=== PATIENT | female | born 1950 | race Caucasian/White ===

== ENCOUNTER 2023-06-19 09:54 | Outpatient (OUT) | payer OTHER, SELFPAY ==
--- NOTE | 2023-06-19 10:02 | US_ITS ---
The [address] [address] Patient Name: BAHMAN LOVE MRN: [id number] date: 1950 Sex: F Assigned Patient Location: US Current Patient Location: US Accession/Order Number: [id number] Exam Date: 06/19/2023 10:01 Report Date: 06/19/2023 12:21 At the request of: BROOKE GALARZA Procedure: US renal BI EXAM: US renal BI HISTORY: Left Adrenal Adenoma D35.00 COMPARISON: CT abdomen pelvis 02/11/2023. TECHNIQUE: Real-time ultrasound imaging of the kidneys and bladder. Findings: The right and left kidneys measure 11.4 and 10.2 cm. There is good corticomedullary differentiation bilaterally. No renal stones or collecting system dilatation. No focal mass or perinephric fluid collection. The bilateral adrenal glands are not visualized due to overlying bowel gas. The bladder is fluid-filled with a prevoid volume of 526th mL. It is unremarkable. Incidentally noted are multiple uterine calcifications. US/US renal BI IMPRESSION: 1. Unremarkable sonographic appearance of the kidneys. Electronically authenticated by: ANNETTE DURAN Date: 06/19/2023 12:21
== END 2023-06-19 09:55 | disposition home or self-care (01) ==
LOC: US 09:55
PROVIDERS: PCP Internal Medicine; Visit Provider Urology
DX: D35.00 Benign neoplasm of unspecified adrenal gland (principal)
CPT/HCPCS: 76775

== ENCOUNTER 2023-07-16 10:05 | Outpatient (OUT) | payer OTHER, SELFPAY ==
[2023-07-16 10:21] LABS: Basophils Percent Auto 0.4 % (0.2-2.0); Eosinophils Absolute Auto 0.1 10^3/uL (0.0-0.7); Eosinophils Percent Auto 1.7 % (0.9-7.0); Hematocrit 39.1 % (36.0-48.0); Hemoglobin 12.9 g/dL (12.0-16.0); Immature Granulocytes Abs Auto 0.02 10^3/uL (0.00-0.03); Immature Granulocytes Pct Auto 0.3 % (0.0-0.5); Lymphocytes Absolute Auto 1.9 10^3/uL (1.2-3.8); Mean Corpuscular Hemoglobin 30.4 pg (26.7-34.0); Mean Corpuscular Volume 92.2 fL (81.0-99.0); Monocytes Absolute Auto 0.6 10^3/uL (0.3-0.8); Monocytes Percent Auto 7.4 % (1.7-12.0); Neutrophils Percent Auto 65.2 % (43.0-75.0); Platelet Count 267 10^3/uL (150-450); Red Blood Count 4.24 10^6/uL (4.20-5.40); Red Cell Distribution Width 13.3 % (11.0-15.0); White Blood Count 7.7 10^3/uL (4.0-11.0)
[2023-07-16 11:23] LABS: Alanine Aminotransferase 32 U/L (14-59); Anion Gap 13.1; BUN Creatinine Ratio 28.4; Calcium 8.9 mg/dL (8.5-10.1); Carbon Dioxide 28.2 mmol/L (21.0-32.0); Chloride 103 mmol/L (98-107); Chol HDL Ratio 3.2; Cholesterol 212 mg/dL (<=200); Estimated GFR (African America >60 (>=60); Estimated GFR (Non-African Ame >60 (>=60); Glucose 108 mg/dL (74-106); HDL Cholesterol 66 mg/dL (40-60); Potassium 4.3 mmol/L (3.5-5.1); Sodium 140 mmol/L (136-145); Thyroid Stimulating Hormone 0.882 uIU/mL (0.358-3.740); Triglycerides 110 mg/dL (<=150)
== END 2023-07-16 10:06 | disposition home or self-care (01) ==
LOC: LAB 10:05
PROVIDERS: PCP Internal Medicine; Visit Provider Internal Medicine
DX: E78.00 Pure hypercholesterolemia, unspecified (principal); E06.3 Autoimmune thyroiditis; K21.00 Gastro-esophageal reflux disease with esophagitis, without bleeding; Z79.899 Other long term (current) drug therapy; R00.2 Palpitations; K58.9 Irritable bowel syndrome, unspecified
CPT/HCPCS: 36415; 80048; 80061; 84443; 84460; 85025

== ENCOUNTER 2023-07-16 10:26 | Outpatient (OUT) | payer OTHER, SELFPAY ==
--- NOTE | 2023-07-16 10:30 | MM_ITS ---
Patient: BAHMAN LOVE Exam Date: 07/16/2023 : 1950 Gender:F Ordering : DR CECILIA BROWN Admission #: [id number] Family : DR Ruddy Alvarado D.O. Order #: [id number] CLICK HERE TO VIEW EXAM RADIOLOGY REPORT PROCEDURE: MM TOMOSYNTHESIS SCREENING BI COMPARISON: MG MAMM SCREEN 3D KIP CAD, 07/01/2022. MG MAMM SCREEN 3D KIP CAD, 06/13/2021. INDICATIONS: Screening Calculator Name NCI Breast Cancer Risk Assessment Tool 5 Year Breast Cancer Risk 1.60% Lifetime Breast Cancer Risk 3.90% Personal Breast Cancer No Personal Ovarian Cancer No Treatments None Family Cancers Aunt-maternal with breast cancer at age 70; Brother with lymphoma cancer at age 56; Father with prostate cancer at age 80. LOCATION: The [facility] BREAST COMPOSITION: Scattered areas fibroglandular density. FINDINGS: DIAGNOSTIC CATEGORY 2--BENIGN FINDING. NO CHANGE FROM COMPARISON. Scattered benign-appearing nodules are present. Scattered benign-appearing calcifications are present. Scattered benign-appearing lymph nodes are present. RIGHT BREAST: No significant suspicious finding. LEFT BREAST: No significant suspicious finding. Focal asymmetry upper inner quadrant with calcifications, stable RECOMMENDATIONS: ROUTINE MAMMOGRAM AND CLINICAL EVALUATION IN 12 MONTHS. PLEASE NOTE: A NORMAL MAMMOGRAM DOES NOT EXCLUDE THE POSSIBILITY OF BREAST CANCER. A CLINICALLY SUSPICIOUS PALPABLE LUMP SHOULD BE BIOPSIED. Dictated by: Olivier Lobato MD on 07/17/2023 at 11:08 Approved by: Olivier Lobato MD on 07/17/2023 at 11:09
== END 2023-07-16 10:27 | disposition home or self-care (01) ==
LOC: MAMMO 10:26
PROVIDERS: PCP Internal Medicine; Visit Provider Obstetrics & Gynecology
DX: Z12.31 Encounter for screening mammogram for malignant neoplasm of breast (principal); E78.00 Pure hypercholesterolemia, unspecified; E06.3 Autoimmune thyroiditis; K21.00 Gastro-esophageal reflux disease with esophagitis, without bleeding; Z79.899 Other long term (current) drug therapy; R00.2 Palpitations; K58.9 Irritable bowel syndrome, unspecified; Z80.3 Family history of malignant neoplasm of breast; Z80.42 Family history of malignant neoplasm of prostate
CPT/HCPCS: 77063; 77067

== ENCOUNTER 2023-07-17 09:24 | Outpatient (OUT) | payer OTHER, SELFPAY ==
--- NOTE | 2023-07-17 09:35 | CT_ITS ---
[address] [address] Patient Name: BAHMAN LOVE MRN: [facility]:[id number] date: 1950 Sex: F Assigned Patient Location: CT Current Patient Location: CT Accession/Order Number: [id number] Exam Date: 07/17/2023 09:55 Report Date: 07/17/2023 10:48 At the request of: BROOKE GALARZA Procedure: CT abdomen pelvis wo/w con EXAM: CT abdomen pelvis wo/w con HISTORY: Adrenal Adenoma D35.00 COMPARISON: 02/11/2023 TECHNIQUE: Axial CT images were obtained of the abdomen and pelvis without and with intravenous contrast. Postcontrast images were obtained in the venous and delayed phase. Multiplanar reconstructions were performed. ABDOMEN/PELVIS FINDINGS: Lower Chest: Unremarkable. Liver: Normal enhancement and contour. Biliary/Gallbladder: Prior cholecystectomy. Pancreas: Unremarkable. Spleen: Unremarkable. Adrenal Glands: Stable appearance of the left adrenal gland with a noncontrast Hounsfield unit measurement of -8.4, consistent with a benign adrenal adenoma. Kidneys: Unremarkable. Gastrointestinal/Peritoneum: No acute abnormality. Mild colonic diverticulosis is present. The appendix is unremarkable. No free air or free fluid. Vascular: Moderate scattered atherosclerotic calcifications are present. Lymph Nodes: No enlarged lymph nodes by CT size criteria. Pelvic Organs: Calcifications in the uterus, likely due to chronic involuted fibroids. Bladder: Unremarkable. Bones: No acute osseous abnormality. There is a slight anterolisthesis of L4 on L5. Mild to moderate multilevel degenerative changes are present in the visualized spine. Soft tissues: Unremarkable. CT/CT abdomen pelvis wo/w con IMPRESSION: 1. No acute abnormality of the abdomen and pelvis. 2. Left adrenal nodule with imaging features consistent with a benign adrenal adenoma. 3. Prior cholecystectomy. 4. Mild colonic diverticulosis. Electronically authenticated by: AMISHA GONZALEZ Date: 07/17/2023 10:48
== END 2023-07-17 09:25 | disposition home or self-care (01) ==
LOC: CT 09:24
PROVIDERS: PCP Internal Medicine; Visit Provider Urology
DX: D35.00 Benign neoplasm of unspecified adrenal gland (principal); D35.02 Benign neoplasm of left adrenal gland; K57.90 Diverticulosis of intestine, part unspecified, without perforation or abscess without bleeding
CPT/HCPCS: 74178; Q9967

== ENCOUNTER 2023-10-20 11:01 | Emergency (ER) | payer OTHER, SELFPAY ==
[2023-10-20 11:06] VITALS: BP 123/72; PULSE 95; RESP 18; TEMP 36.9; O2SAT 97; BMI 28.3
--- NOTE | 2023-10-20 11:19 | ED_ITS ---
HPI - Nausea/Vomiting/Diarrhea General Chief complaint: Nausea/Vomiting/Diarrhea Stated complaint: flu like symptoms Time Seen by Provider: 10/20/23 11:18 Source: patient Mode of arrival: walk-in Limitations: no limitations History of Present Illness HPI Narrative: 73-year-old female presents for nausea vomiting and diarrhea. She's been feeling this way for the past three days. She was recently put on an antibiotic, Macrobid, for a urinary tract infection by her urologist office. She's had a fever home as well. No cough of significance. She had had Covid a few weeks ago but that has resolved. Related Data Home Medications Medication Instructions Recorded Confirmed aspirin 81 mg tablet,delayed 81 mg PO DAILY 10/20/23 10/20/23 release atenolol 25 mg tablet 12.5 mg PO DAILY 10/20/23 10/20/23 calcium 600 mg capsule 600 mg PO BID 10/20/23 10/20/23 dextroamphetamine-amphetamine 20 20 mg PO DAILY 10/20/23 10/20/23 mg tablet (Adderall) famotidine 40 mg tablet 40 mg PO DAILY 10/20/23 10/20/23 levothyroxine 125 mcg tablet 125 mcg PO DAILY 10/20/23 10/20/23 rosuvastatin 20 mg tablet 20 mg PO DAILY 10/20/23 10/20/23 zolpidem 5 mg tablet 2.5 mg PO DAILY 10/20/23 10/20/23 Previous Rx's Medication Instructions Recorded ondansetron 4 mg disintegrating 4 mg PO Q6H PRN nausea and 10/20/23 tablet vomiting #20 tabs Allergies Allergy/AdvReac Type Severity Reaction Status Date / Time No Known Drug Allergies Allergy Verified 10/20/23 11:06 Review of Systems ROS Narrative A ten point review of systems is negative except as noted above. Exam Narrative Exam Narrative: Nurses note and vital signs reviewed and patient is not hypoxic. General: The patient appears well and in no apparent distress. Patient is resting comfortably on cart. Skin: Warm, dry, no pallor noted. There is no rash noted. Head: Normocephalic, atraumatic Eye: Normal conjunctiva, no drainage Ears, Nose, Mouth, and Throat: oral mucosa is moist. Nares patent. Cardiovascular: Regular Rate and Rhythm Respiratory: Patient is in no distress, no accessory muscle use, lungs are clear to auscultation, no wheezing, rales or rhonchi Back: non-tender GI: soft and nontender Musculoskeletal: The patient has no evidence of calf tenderness, no pitting edema, symmetrical pulses noted bilaterally Neurological: A&O, normal speech Psychiatric: Cooperative Constitutional Vital Signs, click to edit/add: Last Vital Signs Temp 98.5 F 10/20/23 11:06 Pulse 95 H 10/20/23 11:06 Resp 18 10/20/23 11:06 BP 123/72 10/20/23 11:06 Pulse Ox 97 10/20/23 11:06 O2 Del Method Room Air 10/20/23 11:06 Course Vital Signs Vital signs: Vital Signs Temperature 98.5 F 10/20/23 11:06 Pulse Rate 95 H 10/20/23 11:06 Respiratory Rate 18 10/20/23 11:06 Blood Pressure 123/72 10/20/23 11:06 Pulse Oximetry 97 10/20/23 11:06 Oxygen Delivery Method Room Air 10/20/23 11:06 Temperature 98.5 F 10/20/23 11:06 Pulse Rate 95 H 10/20/23 11:06 Respiratory Rate 18 10/20/23 11:06 Blood Pressure 123/72 10/20/23 11:06 Pulse Oximetry 97 10/20/23 11:06 Oxygen Delivery Method Room Air 10/20/23 11:06 MDM - Nausea/Vomiting/Diarrhea MDM Narrative Medical decision making narrative: laboratory analysis is nonspecific. Clostridium difficile and stool cultures are pending. She's feeling improved and is able to be discharged home. Treatment diagnosis and follow-up were discussed with the patient. Differential Diagnosis Differential diagnosis: Likely food poisoning, gastroenteritis, clostridium difficile infection, drug-induced nausea and vomiting and dehydration Lab Data Attestation: I reviewed the patient's lab results. Labs: Lab Results 10/20/23 10/20/23 Range/Units 11:57 12:20 WBC 8.2 (4.0-11.0) 10^3/uL RBC 4.36 (4.20-5.40) 10^6/uL Hgb 13.1 (12.0-16.0) g/dL Hct 39.2 (36.0-48.0) % MCV 89.9 (81.0-99.0) fL MCH 30.0 (26.7-34.0) pg MCHC 33.4 (29.9-35.2) g/dL RDW 13.3 (11.0-15.0) % Plt Count 259 (150-450) 10^3/uL MPV 9.9 (9.5-13.5) fL Neut % (Auto) 90.5 H (43.0-75.0) % Lymph % (Auto) 3.8 L (20.5-60.0) % [place] % (Auto) 3.7 (1.7-12.0) % Eos % (Auto) 1.8 (0.9-7.0) % Baso % (Auto) 0.0 L (0.2-2.0) % Neut # (Auto) 7.4 H (1.4-6.5) 10^3/uL Lymph # (Auto) 0.3 L (1.2-3.8) 10^3/uL [place] # (Auto) 0.3 (0.3-0.8) 10^3/uL Eos # (Auto) 0.2 (0.0-0.7) 10^3/uL Baso # (Auto) 0.0 (0.0-0.1) 10^3/uL Abs Immat Gran (auto) 0.02 (0.00-0.03) 10^3/uL Imm/Tot Granulo (auto) 0.2 (0.0-0.5) % Sodium 134 L (136-145) mmol/L Potassium 3.2 L (3.5-5.1) mmol/L Chloride 97 L (98-107) mmol/L Carbon Dioxide 26.8 (21.0-32.0) mmol/L Anion Gap 13.4 BUN 11.0 (7.0-18.0) mg/dL Creatinine 0.72 (0.55-1.02) mg/dL Est GFR ( Amer) >60 (>=60) Est GFR (Non-Af Amer) >60 (>=60) BUN/Creatinine Ratio 15.3 Glucose 105 (74-106) mg/dL Calcium 9.0 (8.5-10.1) mg/dL Urine Color Yellow (YELLOW) Urine Clarity Clear (CLEAR) Urine pH 6.5 (5.0-9.0) Ur Specific [place] <=1.005 A (1.005-1.025) Urine Protein 30 A (NEG/TRACE) mg/dL Urine Glucose (UA) Negative (NEGATIVE) mg/dL Urine Ketones Negative (NEGATIVE) mg/dL Urine Occult Blood Small A (NEGATIVE) Urine Nitrite Negative (NEGATIVE) Urine Bilirubin Small A (NEGATIVE) Urine Urobilinogen 1.0 (0.2-1.0) EU/dL Ur Leukocyte Esterase Trace A (NEGATIVE) Urine RBC 0-2 (0-2) #/HPF Urine WBC 2-5 A (NONE SEEN) #/HPF Ur Squamous Epith Cells Few A (NONE/RARE) #/LPF Urine Crystals None seen (None Seen) #/HPF Urine Bacteria Moderate A (NONE SEEN) #/HPF Urine Casts None seen (NONE SEEN) #/LPF Urine Mucus None seen (NONE SEEN) Discharge Plan Discharge Chief Complaint: Nausea/Vomiting/Diarrhea Clinical Impression: Nausea, vomiting, and diarrhea Patient Disposition: Home, Self-Care Time of Disposition Decision: 13:12 Condition: Good Mode of Transportation: Private Vehicle Prescriptions / Home Meds: New ondansetron 4 mg tablet,disintegrating 4 mg PO Q6H PRN (Reason: nausea and vomiting) Qty: 20 0RF No Action levothyroxine 125 mcg tablet 125 mcg PO DAILY aspirin 81 mg tablet,delayed release (DR/EC) 81 mg PO DAILY famotidine 40 mg tablet 40 mg PO DAILY atenolol 25 mg tablet 12.5 mg PO DAILY rosuvastatin 20 mg tablet 20 mg PO DAILY zolpidem 5 mg tablet 2.5 mg PO DAILY dextroamphetamine-amphetamine [Adderall] 20 mg tablet 20 mg PO DAILY calcium 600 mg capsule 600 mg PO BID Instructions: Acute Nausea and Vomiting (ED) Stand Alone Forms: Portal Instructions Referrals: Ruddy Alvarado DO [Primary Care Provider] - 1 week
[2023-10-20 12:07] LABS: Eosinophils Absolute Auto 0.2 10^3/uL (0.0-0.7); Eosinophils Percent Auto 1.8 % (0.9-7.0); Hematocrit 39.2 % (36.0-48.0); Hemoglobin 13.1 g/dL (12.0-16.0); Immature Granulocytes Abs Auto 0.02 10^3/uL (0.00-0.03); Immature Granulocytes Pct Auto 0.2 % (0.0-0.5); Lymphocytes Absolute Auto 0.3 10^3/uL (1.2-3.8); Lymphocytes Percent Auto 3.8 % (20.5-60.0); Mean Corpuscular HGB Conc 33.4 g/dL (29.9-35.2); Mean Corpuscular Volume 89.9 fL (81.0-99.0); Mean Platelet Volume 9.9 fL (9.5-13.5); Monocytes Absolute Auto 0.3 10^3/uL (0.3-0.8); Monocytes Percent Auto 3.7 % (1.7-12.0); Neutrophils Absolute Auto 7.4 10^3/uL (1.4-6.5); Neutrophils Percent Auto 90.5 % (43.0-75.0); Platelet Count 259 10^3/uL (150-450); Red Blood Count 4.36 10^6/uL (4.20-5.40); Red Cell Distribution Width 13.3 % (11.0-15.0); White Blood Count 8.2 10^3/uL (4.0-11.0)
[2023-10-20] MEDS: 0.9 % SODIUM CHLORIDE 1,000 ML 1000 ML IV (12:12)
[2023-10-20] MEDS: ONDANSETRON PF 4 MG/2 ML VIAL IV (12:13)
[2023-10-20 12:23] LABS: Anion Gap 13.4; BUN Creatinine Ratio 15.3; Carbon Dioxide 26.8 mmol/L (21.0-32.0); Chloride 97 mmol/L (98-107); Estimated GFR (African America >60 (>=60); Estimated GFR (Non-African Ame >60 (>=60); Glucose 105 mg/dL (74-106); Potassium 3.2 mmol/L (3.5-5.1); Sodium 134 mmol/L (136-145)
[2023-10-20 12:33] LABS: Bilirubin Urine SMALL (NEGATIVE); Blood Urine SMALL (NEGATIVE); Clarity Urine CLEAR (CLEAR); Color Urine YELLOW (YELLOW); Glucose Urine UA NEGATIVE (NEGATIVE); Ketones Urine NEGATIVE (NEGATIVE); Leukocyte Esterase Urine TRACE (NEGATIVE); Nitrite Urine NEGATIVE (NEGATIVE); Protein Urine 30 mg/dL (NEG/TRACE); Specific Gravity Urine <=1.005 (1.005-1.025); pH Urine 6.5 (5.0-9.0)
[2023-10-20 12:45] LABS: Bacteria Urine MODERATE #/HPF (NONE SEEN); Cast Seen? NONE SEEN #/LPF (NONE SEEN); Crystals Seen? None Seen #/HPF (None Seen); Mucus Urine NONE SEEN (NONE SEEN); RBC Urine 0-2 #/HPF (0-2); Squamous Epithelial Cell Urine FEW #/LPF (NONE/RARE)
[2023-10-20 13:36] VITALS: BP 132/74; PULSE 86; RESP 20; O2SAT 94
[2023-10-20 16:12] LABS: C. Difficile PCR NEGATIVE (NEGATIVE)
== END 2023-10-20 13:38 | disposition home or self-care (01) ==
PROVIDERS: Emergency Provider Emergency Medicine; PCP Internal Medicine
DX: R11.2 Nausea with vomiting, unspecified (principal); R19.7 Diarrhea, unspecified; Z86.16 Personal history of COVID-19; Z79.82 Long term (current) use of aspirin; Z79.899 Other long term (current) drug therapy; Z79.890 Hormone replacement therapy
CPT/HCPCS: 36415; 80048; 81001; 85025; 87045; 87046; 87427; 87493; 96374; 99284; J2405

== ENCOUNTER 2024-08-20 08:49 | Outpatient (OUT) | payer OTHER, SELFPAY ==
--- NOTE | 2024-08-20 09:05 | MM_ITS ---
Patient Name: BAHMAN LOVE MR#: [id number] : 1950 Exam Date: 08/20/2024 Ordering Doctor: DR Ruddy Alvarado D.O. RADIOLOGY REPORT PROCEDURE: MM TOMOSYNTHESIS SCREENING BI COMPARISON: MM TOMOSYNTHESIS SCREENING BI, 07/16/2023. MG MAMM SCREEN 3D KIP CAD, 07/01/2022. MG MAMM SCREEN 3D KIP CAD, 06/13/2021. MG MAMM KIP SCRN W CAD DIG, 03/10/2014. INDICATIONS: Screening Calculator Name NCI Breast Cancer Risk Assessment Tool 5 Year Breast Cancer Risk 1.60% Lifetime Breast Cancer Risk 3.40% Personal Breast Cancer No Personal Ovarian Cancer No Treatments None Family Cancers Aunt-maternal with breast cancer at age 70; Brother with lymphoma cancer at age 56; Father with prostate cancer at age 80. LOCATION: [facility] BREAST COMPOSITION: There are scattered areas of fibroglandular density. FINDINGS: DIAGNOSTIC CATEGORY 2--BENIGN FINDING: RIGHT BREAST: No significant suspicious finding. No significant change has occurred. LEFT BREAST: No significant suspicious finding. Scattered benign-appearing calcifications are present. Scattered benign-appearing lymph nodes are present. No significant change has occurred. RECOMMENDATIONS: ROUTINE MAMMOGRAM AND CLINICAL EVALUATION IN 12 MONTHS. PLEASE NOTE: A NORMAL MAMMOGRAM DOES NOT EXCLUDE THE POSSIBILITY OF BREAST CANCER. A CLINICALLY SUSPICIOUS PALPABLE LUMP SHOULD BE BIOPSIED. Dictated by: Felix Perez M.D. on 08/20/2024 at 11:56 Approved by: Felix Perez M.D. on 08/20/2024 at 11:59
[2024-08-20 09:08] LABS: Basophils Percent Auto 0.5 % (0.2-2.0); Eosinophils Absolute Auto 0.2 10^3/uL (0.0-0.7); Eosinophils Percent Auto 2.5 % (0.9-7.0); Hematocrit 38.1 % (36.0-48.0); Hemoglobin 12.5 g/dL (12.0-16.0); Immature Granulocytes Abs Auto 0.02 10^3/uL (0.00-0.03); Immature Granulocytes Pct Auto 0.3 % (0.0-0.5); Lymphocytes Absolute Auto 1.8 10^3/uL (1.2-3.8); Lymphocytes Percent Auto 24.8 % (20.5-60.0); Mean Corpuscular HGB Conc 32.8 g/dL (29.9-35.2); Mean Corpuscular Hemoglobin 30.5 pg (26.7-34.0); Mean Corpuscular Volume 92.9 fL (81.0-99.0); Mean Platelet Volume 9.9 fL (9.5-13.5); Monocytes Absolute Auto 0.6 10^3/uL (0.3-0.8); Monocytes Percent Auto 8.6 % (1.7-12.0); Neutrophils Absolute Auto 4.7 10^3/uL (1.4-6.5); Neutrophils Percent Auto 63.3 % (43.0-75.0); Platelet Count 265 10^3/uL (150-450); Red Cell Distribution Width 14.4 % (11.0-15.0); White Blood Count 7.3 10^3/uL (4.0-11.0)
[2024-08-20 09:47] LABS: Alanine Aminotransferase 34 U/L (14-59); Albumin Level 3.3 g/dL (3.4-5.0); Alkaline Phosphatase 77 U/L (46-116); Anion Gap 12.5; Aspartate Amino Transferase 24 U/L (15-37); BUN Creatinine Ratio 16.1; Bilirubin Total 0.5 mg/dL (0.2-1.0); Calcium 9.1 mg/dL (8.5-10.1); Carbon Dioxide 30.1 mmol/L (21.0-32.0); Chloride 104 mmol/L (98-107); Chol HDL Ratio 2.4; Cholesterol 170 mg/dL (<=200); Estimated GFR (African America >60 (>=60 mL/min/1.73m^2); Estimated GFR (Non-African Ame 59 (>=60 mL/min/1.73m^2); Globulin 3.3 g/dL; Glucose 114 mg/dL (74-106); HDL Cholesterol 72 mg/dL (40-60); Potassium 4.6 mmol/L (3.5-5.1); Sodium 142 mmol/L (136-145); Thyroid Stimulating Hormone 1.967 uIU/mL (0.358-3.740); Total Protein 6.6 g/dL (6.4-8.2); Triglycerides 74 mg/dL (<=150); VLDL CHOLESTEROL 14.8 mg/dL
== END 2024-08-20 08:50 | disposition home or self-care (01) ==
PROVIDERS: PCP Internal Medicine; Visit Provider Internal Medicine
DX: Z12.31 Encounter for screening mammogram for malignant neoplasm of breast (principal); Z80.3 Family history of malignant neoplasm of breast; Z80.7 Family history of other malignant neoplasms of lymphoid, hematopoietic and related tissues; Z80.42 Family history of malignant neoplasm of prostate
CPT/HCPCS: 36415; 77063; 77067; 80053; 80061; 84443; 85025

== ENCOUNTER 2024-09-07 10:04 | Outpatient (OUT) | payer OTHER, SELFPAY ==
[2024-09-07 10:18] LABS: Basophils Percent Auto 0.4 % (0.2-2.0); Eosinophils Absolute Auto 0.2 10^3/uL (0.0-0.7); Eosinophils Percent Auto 2.1 % (0.9-7.0); Hematocrit 38.3 % (36.0-48.0); Hemoglobin 12.5 g/dL (12.0-16.0); Immature Granulocytes Abs Auto 0.02 10^3/uL (0.00-0.03); Immature Granulocytes Pct Auto 0.3 % (0.0-0.5); Lymphocytes Absolute Auto 1.8 10^3/uL (1.2-3.8); Mean Corpuscular HGB Conc 32.6 g/dL (29.9-35.2); Mean Corpuscular Hemoglobin 30.6 pg (26.7-34.0); Mean Corpuscular Volume 93.9 fL (81.0-99.0); Mean Platelet Volume 9.4 fL (9.5-13.5); Monocytes Absolute Auto 0.9 10^3/uL (0.3-0.8); Neutrophils Absolute Auto 4.3 10^3/uL (1.4-6.5); Neutrophils Percent Auto 60.2 % (43.0-75.0); Platelet Count 254 10^3/uL (150-450); Red Blood Count 4.08 10^6/uL (4.20-5.40); Red Cell Distribution Width 14.2 % (11.0-15.0); White Blood Count 7.2 10^3/uL (4.0-11.0)
[2024-09-07 10:28] LABS: C Reactive Protein 1.26 mg/dL (<=0.50)
[2024-09-07 10:58] LABS: Erythrocyte Sedimentation Rate 53 mm/hr (<=30)
== END 2024-09-07 10:05 | disposition home or self-care (01) ==
LOC: LAB 10:06
PROVIDERS: PCP Internal Medicine; Visit Provider Internal Medicine
DX: K52.9 Noninfective gastroenteritis and colitis, unspecified (principal)
CPT/HCPCS: 36415; 85025; 85652; 86140

== ENCOUNTER 2024-10-13 12:54 | Outpatient (OUT) | payer OTHER, SELFPAY ==
[2024-10-13 13:37] LABS: Alanine Aminotransferase 39 U/L (14-59); Albumin Globulin Ratio 1.2; Albumin Level 3.7 g/dL (3.4-5.0); Alkaline Phosphatase 61 U/L (46-116); Amylase 45 U/L (25-115); Anion Gap 9.3; Aspartate Amino Transferase 25 U/L (15-37); BUN Creatinine Ratio 14.5; Bilirubin Total 0.6 mg/dL (0.2-1.0); Calcium 9.3 mg/dL (8.5-10.1); Carbon Dioxide 31.7 mmol/L (21.0-32.0); Chloride 103 mmol/L (98-107); Estimated GFR (African America >60 (>=60 mL/min/1.73m^2); Estimated GFR (Non-African Ame >60 (>=60 mL/min/1.73m^2); Globulin 3.2 g/dL; Glucose 109 mg/dL (74-106); Sodium 140 mmol/L (136-145); Total Protein 6.9 g/dL (6.4-8.2)
== END 2024-10-13 12:55 | disposition home or self-care (01) ==
LOC: LAB 12:56
PROVIDERS: PCP Internal Medicine; Visit Provider Internal Medicine
DX: L29.9 Pruritus, unspecified (principal); I10 Essential (primary) hypertension; R10.13 Epigastric pain
CPT/HCPCS: 36415; 80053; 82150; 83690

== ENCOUNTER 2025-08-23 15:52 | Outpatient (OUT) | payer OTHER, SELFPAY ==
--- OUTSIDE RECORDS SUMMARY | 2025-08-10 07:04 | XMS_ITS | Continuity of Care Document ---
Author Organization [facility] Address [address] [place] [address] Phone Care Team Providers Care Hand Paint Mixer Name Role Phone Ruddy Alvarado DO Primary Care Provider Bekah Cho NP-C Attending Provider [phone] Care Teams Patient Care Team Team Status: Active Member Role/Relationship Status Dates Ruddy Alvarado DO Primary Care Provider Active Patient Care Team Team Status: Inactive Member Role/Relationship Status Dates Ruddy Alvarado DO Primary Care Provider Active Start: August 10, 2025 End: August 10ndra Tammie NP-CAttending ProviderActiveStart: August 10, 2025 End: August 10, 2025 Chief Complaint and Reason for Visit Chief Complaint Admit Date aaron/insomnia/narcolepsy August 10, 2 025 11:01am Allergies, Adverse Reactions, Alerts Allergen Type Severity Reaction Last Updated Verified Status Comments atorvastatin Allergy Unknown Pancreatitis January 03, 2025 8:59am Yes Active pt unsure if this is an allergy, she had pancreatitis twice while taking this ezetimibe Allergy Unknown Pancreatitis January 03, 2025 8:59am Yes Active pt unsure if this is an allergy, she had pancreatitis twice while taking this NSAIDS (Non-Steroidal Anti-Inflamma Allergy Unknown Pancreatitis January 03, 2025 8:59am Yes Active simvastatinAllergyUnknownPancreatitisApril 2024 8:59amYesActivept unsure if this is an allergy, she had pancreatitis twice while taking this Social History Smoking Status Status Start Date End Date Date of Observa tion Smokes tobacco daily (finding) February 26, 2024 7:14am Observation Status Observation Response Date of Response Legal Sex Female (finding) [facility] 1949 Family History Relationship Condition Age at Onset Recorded Date/T trinity father Heart disease Unknown motherDiabetes mellitusUnknownHeart diseaseUnknownbrotherNon-Hodgkin's lymphoma UnknownbrotherDeceasedUnknownMalignant neoplasmUnknownfatherDeceasedUnknown motherDeceasedUnknown Problems Active Problems Problem Diagnosis/Recorded Date Onset Date Status C ments Medicare annual wellness vis it, subsequent July 03, 2024 1:06pm Unknown Active Primary insomniaOctober 2023 1:07pmUnknownActiveOSA (obstructive sleep apnea)July 17, 2020 7:46amUnknownActiveCPAPGAD (generalized anxiety disorder)July 03, 2024 1:07pmUnknownActiveScreening mammogram for breast cancerOctober 2023 1:10pmUnknownActivePalpitationOctober 2023 1:08pm UnknownActiveColitisDecember 2019 2:37pmUnknownActiveHypercholesterolemia July 03, 2024 1:08pmUnknownActiveHypothyroidOctober 2023 1:09pmUnknown ActiveEnteritisOctober 2023 9:16amUnknownActiveNarcolepsy without cataplexyOctober 2019 7:45amUnknownActivePruritusJanuary 2024 10:07amUnknownActiveLow back pain radiating to right lower extremityApr2024 9:48amUnknownActiveEpigastric abdominal painJanuary 2024 10:08am UnknownActiveScreening for colorectal cancerOctober 2019 8:54amUnknown ActiveAcute bronchitis due to other specified organismsOctober 2023 9:15am UnknownActiveGERD (gastroesophageal reflux disease)July 03, 2024 1:08pm UnknownActiveHypertensionOctober 2023 9:14amUnknownActiveIBS (irritable bowel syndrome)February 12, 2022 6:41amUnknownActive Medications Medication Status Dose Units Route Directions Qty Days Refills S tart Date Stop Date End Date Reason(s) Instructions Adherence Atenolol 25 mg tablet Discontinued 12.5 MG PO Daily at bedtime 45 90 3 March 08, 2024 2:24pm February 22, 2025 8:29amTachyarrhythmia Tachycardia, unspecified palpitationsFamotidine 40 mg cqrhwbEtwmnwyqanex99GLNTVvlztPzuadaiej 2023 11:00pmSeptember 2023 12:04pmFamotidine 40 mg tabletDiscontinued0.ROUTE .RRXNONB471Purcdkwwa 2023 12:04pmAugust 2024 6:46amTAKE 1 TABLET BY MOUTH EVERYDAY AT BEDTIMEEscitalopram Oxalate 10 mg tabletDiscontinued0.ROUTE .SPQKBMZ760Pvkfnfewc 4th, 2024 10:17amApril 2024 5:45amTAKE 1 TABLET BY MOUTH EVERYDAY AT BEDTIMEZolpidem 5 mg rgshayYasnrhxymsfq6RKGQOjvpx at twxaznd92 305September 2023 1:21pmMay 2024 3:14pmInsomnia Psychophysiologic insomniaLevothyroxine 125 mcg tabletDiscontinued0.ROUTE .BOYVPDV620Szxwysm 2023 7:39amNovember 2024 7:49amTAKE 1 TABLET BY MOUTH ONCE EVERY DAY ON AN EMPTY STOMACHRosuvastatin 20 mg tabletDiscontinued0 .ROUTE.ASOGTWE791Gszlgsir 2023 7:03amNovember 2024 7:49amTAKE 1 TABLET BY MOUTH EVERY DAY IN THE EVENINGDextroamphetamine-Amphetamine (Adderall) 20 mg gsjxqeEazgzuxwystk22JRAQLdrww chkjk22227Kiuvnrjy 11th, 2024Ma2024 10:34amNarcolepsy without cataplexy Narcolepsy without cataplexy narcolepsyMetronidazole 500 mg mhswtlXhpcbrzjvhzx546UHLTSydcz 8 ujxeo64933 September 23, 2024 11:27amJanuary 2024 9:19amOmeprazole 40 mg capsule,delayed release(DR/EC)Discontinued0.ROUTE.OMUPDRS932Rusqrjnx 2024 10:31pmApril 2024 9:05amTAKE 1 CAPSULE BY MOUTH EVERY DAY ON AN EMPTY STOMACH, 30 MINUTES PRIOR TO BKFSTEscitalopram Oxalate 10 mg tabletDiscontinued0 .ROUTE.AVZGEJZ799Jnkwd 2024 5:45amNovember 2024 11:25amTAKE 1 TABLET BY MOUTH EVERYDAY AT BEDTIMEZolpidem 5 mg xxwaonNqrdqb3SIKIJpsoa at bedtime as needed for shmdbkzn92951Ezr 22nd, 2025 3:14pmInsomnia Psychophysiologic insomniaComplies with drug therapyAtenolol 25 mg tabletActive0 .ROUTE.LKWAJUD318Iol 2024 8:29amTachyarrhythmia Tachycardia, unspecifiedTAKE 1/2 TABLET BY MOUTH DAILY AT BEDTIME FOR PALPITATIONSComplies with drug therapyDextroamphetamine-Amphetamine (Adderall) 20 mg wnonxiGomkwp98UBUJIszjg jrwjy39770Eyu 2024Narcolepsy without cataplexy Narcolepsy without cataplexy narcolepsyComplies with drug therapyFamotidine 40 mg tabletDiscontinued0.ROUTE .ZKIILOO068Bsgbct 2024 6:46amNovember 2024 11:25amTAKE 1 TABLET BY MOUTH EVERYDAY AT BEDTIMELevothyroxine 125 mcg xexbfyAbnacp954OQQSHGxjqo81234 August 09, 2025 7:49amTake on an empty stomachComplies with drug therapy Rosuvastatin 20 mg tabletActive0.ROUTE.XYFPMEQ998Raklvsgn 11th, 2025 7:49amTAKE 1 TABLET BY MOUTH EVERY DAY IN THE EVENINGComplies with drug therapy Levothyroxine 137 mcg zlohllFdiuwnocwujd958OIJOWSyrhsWpbjnmr 2019 11:00pm September 04, 2020 2:22pmFamotidine 40 mg nsriznXcqldxpsnqvb84SAATXuhpjAxujoqe 18th, 2020 11:00pmDeceer 2019 2:21pmClonazepam 0.5 mg TabletDiscontinued 0.25MGPODaily as needed for AnxietyOct2019 11:00pmFebruary 26, 2024 6:15amAtenolol 25 mg VkcwxvSczmxeozqlii26.5MGPODaily at bedtimeJuly 16, 2020 11:00pmJune 2023 2:25pmpalpitationsAspirin 81 mg Tablet,Delayed Release (Dr/Ec)Agvtyq70PKMVHjhetZrjwwxm 18th, 2020 11:00pmComplies with drug therapyCalcium Carbonate (Calcium 600) 600 mg calcium (1,500 mg) Tablet Hbbsevydatzk719LDAYLqwpt dailyJuly 16, 2020 11:00pmDece2019 2:25pmPantoprazole 40 mg tablet,delayed release (DR/EC)Ylpjdfdaengi22PFBSTvgcx July 16, 2020 11:00pmAk2020 1:21pmesophagitis, GERD Dextroamphetamine-Amphetamine (Adderall) 20 mg WeuwitToluiumfhlfh87SNRPWoouz July 16, 2020 11:00pmJun 2023 10:37amnarcolepsyPseudoephedrine Hcl (Sudafed) 30 mg AyzlppCwyygyptmdih80VPQGFKDUN 4-6 HOURS as needed for Allergy SymptomsJuly 16, 2020 11:00pmJune 2023 10:34amPravastatin 20 mg tablet Atlhcjnouqvl50WXQUPeqptLadqjps 18th, 2020 11:00pm[facility]2019 2:23pm Zolpidem 5 mg tabletDiscontinued2.5MGPODaily at bedtime as needed for Insomnia July 16, 2020 11:00pmSeptember 2023 1:22pmPyridoxine (Vitamin B6) (Vitamin B-6) 100 mg BuefqtZbdtnu266ERWMIejdhKqywbyy 18th, 2020 11:00pm supplementComplies with drug therapyAcetaminophen (Tylenol) 325 mg Capsule Pusmrdicutfo956HYTPMjkyv times daily as needed for PainJuly 16, 2020 11:00pm[facility] 2024 11:24amCholecalciferol (Vitamin D3) (Vitamin D3) 25 mcg (1,000 unit) CyfmgnClnqvzlqutgr67BUJCUJvxsiDnveqwr 18th, 2020 11:00pmMay 2020 1:22pmsupplementOmega 5-Qwr-Emu-Fish Oil (Fish Oil) 1,200 (144-216) mg DvazlxzGyamvmphsoup2SQJIMYjlvwVzcvpwn 2019 11:00pmMay 2023 6:14am supplementPravastatin 40 mg ayjdlnTaucstjgpaam69SGQODpyct at bedtimeB[facility]2019 12:00amMay 2021 5:45amhyperlipidemiaLevothyroxine 125 mcg tablet Yrsedwurylhp426QQFHWVuiwrIhlrmbml 7th, 2020 12:00amOctober 2023 7:39am hypothyroidismCalcium Carbonate-Vitamin D3 (Calcium 600 + D(3)) 600 mg(1,500mg) -400 unit AbrecgQakkcs5SLEXNGweyr dailyDeveter[facility]2019 12:00amsupplement Complies with drug therapyMetronidazole (Flagyl) 500 mg MuhxbcKwpouquqlslo902OG POTwice dailyBrotman Medical Center2019 12:00amMay 2020 1:21pmFamotidine 40 mg olegiqYpgmuwiqnswv42ECYMGrepw dailyAky 2020 11:00pmJanuary 2024 9:37amLactobacillus Combination No.4 (Probiotic) 3 billion cell Capsule Pyuuhiktxigk2589QVA CELLSPODay 2020 11:00pmMay 2021 5:54am Escitalopram Oxalate 10 mg tcmircCfbtzgtgiqbb55PWNXJefmuVac 2021 11:00pm June 02, 2024 10:17amRosuvastatin 20 mg lgvwxcVzjoqzuzguhy67SJPCVmhmjrdObv 2021 11:00pmNovember 2023 7:03amOmeprazole 40 mg capsule,delayed release(DR/EC)Kjtvcmjhtgws54BOHRGpstv22696Oqkfray 2024 12:00amFebruary 2024 10:31pmTake on an empty stomach, 30 minutes prior to bkfstAscorbic Acid (Vitamin C) 1,000 mg qjtwjxGouapj4385JEZTRbhbhHkslrqgr 12th, 2025 12:00am Complies with drug therapyCholecalciferol (Vitamin D3) 125 mcg (5,000 unit) acvxlxgLmkxzu320FSUVWZvkbgOmfyhcjg 2024 12:00amComplies with drug therapy estradiolActiveVAGINALNovember 2024 12:00amComplies with drug therapy loratadine (Claritin)ActivePOas neededNov2024 12:00amComplies with drug therapymirabegronActivePONovember 2024 12:00amComplies with drug therapyphenylephrine HCl (Sudafed PE)ActivePOas neededNov2024 12:00amComplies with drug therapyDextroamphetamine-Amphetamine (Adderall) 20 mg dpfrqtKvxcniozyvad88EQVRDuzic npzin15051Aleu ecember 2023 12:59pmNarcolepsy without cataplexy Narcolepsy without cataplexy narcolepsyLevofloxacin 500 mg qtyzleTfbswxtewwns706YKTTTomzj121Pgustpa 2023 11:00pmDecember 2023 9:26pmMetronidazole 500 mg yzlbgoBfxuzdbsmiwn326 MGPOEvery 8 bgenj86856Xppumbxe 10th, 2024 12:00amDecember 2023 11:27am Hydrocodone-Acetaminophen 5-325 mg apbseqWvdlzdoxwbqo8QPSNXPabsr 6 hours as needed for wxzu4690Mavqa 2024 11:25amLow back pain Low back pain, unspecified Immunizations Immunization Event Date Not Given Reason Dose Number Order Manager Lot Number Reason(s) Given Vaccine Information Statement (VIS) Detail Administration Location COVID-19 mRNA Comirsurinder (Application Craft) December 22 COVID-19 mRNA Comirsurinder (Application Craft)January 12Tap, unspecifiedSeptember 2010influenza, unspecified formulationOctober 2014influenza, unspecified formulationOctober 2016influenza, unspecified formulation July 01, 2018influenza, unspecified formulationNovember 2018influenza, unspecified formulationSeptember 2019influenza, unspecified formulation June 26, 2021influenza, unspecified formulationOctober 2021 Pneumococcal Conjugate Vaccine, 13 valentNovember 2014Pneumococcal Polysacc. Vaccine, 23 valentNovember 2015Tetanus, Diphtheria adult, 5 Lf pres free absOctober 2014 Vital Signs Vital Reading Result Reference Range Collection Date/Time Height 65 [in_i] August 10, 2025 11:95dpAqzruu82.01 kgAugust 10, 2025 11:22amHeart Rate74 /usq55-882WafkamcoAugust 10, 2025 11:22amOxygen saturation by Pulse wanhlwce39 % 95-100August 10, 2025 11:22amBP Alqmggbv765 mm[Hg]100-140August 10, 2025 11:22amBP Hucwrvcvz93 mm[Hg]60-100August 10, 2025 11:22amBMI (Body Mass Index)28.6 kg/e7EhzxcoxtAugust 10, 2025 11:22am Advance Directives Advance Directive Response Recorded Date/ Time Advance Directives No May 4:13pm Insurance Providers Guarantor Merissa José I Address [address] [place] [address]Egikbih Info.Home Phone: Payer Group Member ID Coverage Type Subscriber Relationship to Subscriber Effective Date Expiration Date [facility] [id number] Ruffing Destinee Id: [id number] [address] [place] [address] Home Phone: Email: declined 19elf Encounters Encounter Location(s) Arrival/Admit Date Discharge/Departure Date Discharge/Departure Disposition Provider(s) Departed Physician/ Provider Office Visit -[facility] August 10, 2025 11:01am August 10, 2025 12:03pm Discharged to home care or self care (routine discharge) Bekah Cho APRN
--- OUTSIDE RECORDS SUMMARY | 2025-08-23 15:54 | XMS_ITS | Clinical Summary ---
Author Organization [facility] Address [address] [place] [address] Care Team Providers Care Networks Computer Consultant Name Role Phone Ruddy Alvarado DO Primary Care Provider [phone] Allergies Active AllergyReactionsCriticalityNoted GtoxRhmtiwseKuwiwsqaewklUxgxb38/15/2023 Uwcfhfwsy91/27/2021 Other Reaction(s): Pancreatitis DyzszzxglegawyZpderrh05/12/8027AaggdeFbqizun61/14/3497EptyvQwyhg93/15/2023 Medications MedicationSigDispense QuantityRefillsLast FilledStart DateEnd DateStatus levothyroxine (Synthroid, Levoxyl) 125 MCG tablet TAKE 1 TABLET BY MOUTH ONCE EVERY DAY ON AN EMPTY MCXBPPY7701/06/2023ctive pyridoxine (B6 Natural) 100 MG tablet 1 (one) time each day at the same time.Active atenolol (Tenormin) 25 MG tablet 1 (one) time each day at the same time.Active aspirin 81 MG EC tablet Take 81 mg by mouth in the morning.Active famotidine (Pepcid) 40 MG tablet Take by mouth.Active rosuvastatin (Crestor) 20 MG tablet Take 20 mg by mouth in the evening.06/02/2023ctive CALCIUM PO Active Cholecalciferol (Vitamin D3) 1000 units capsule 1 capsule 1 (one) time each day at the same time.Active Ascorbic Acid (VITAMIN C PO) Active pseudoephedrine (Sudafed) 30 MG tablet Take 30 mg by mouth every 4 (four) hours if needed for congestion.Active amphetamine-dextroamphetamine (Adderall) 20 MG tablet TAKE 1/2-1 TABLET BY MOUTH ONCE A DAY07/14/2023ctive escitalopram (Lexapro) 10 MG tablet Take 10 mg by mouth at txqipcz6608/29/2023ctive estradiol (Estrace) 0.1 MG/GM vaginal cream Insert 1 g into the qlunnp5609/25/2022ctive zolpidem (Ambien) 5 MG tablet TAKE 1 TABLET BY MOUTH DAILY AT BEDTIME FOR 30 DAYS.11/09/2023ctive tretinoin (Retin-A) 0.025 % cream Indications:LentiginesApply topically at bedtime Apply thin layer to face at bedtime 45 g 110///ctive mirabegron ER (Myrbetriq) 50 MG 24 hr tablet Take 50 mg by mouth at bedtime Do not crush, chew, or split.Active Active Problems ProblemNoted DateDiagnosed TbhrBzkfczk17/17/8736Gjumodtjs88/17/2024Neuralgia and fxectixc63/12/2023cquired hammer toe deformity of lesser toe of left foot 06/10/2023cquired hammer toe deformity of lesser toe of right foot06/10/2023 Adrenal vdhjfwq0506/10/2023hronic ybibcwvs70/12/2023urrent hdzray6206/10/2023 Overview (06/10/2023): Added secondary to documentation in Social History. Friable tmsihk6406/10/2023astroesophageal reflux mcqjkjg5706/10/2023Hallux rigidus of left foot06/10/2023History of urinary tract emugsnxxz25/12/2023 Gxfuosbmyoipuecrnczm73/12/1222Aoobzlqwncbntw97/12/2023Irritable bowel syndrome 06/10/2023Narcolepsy without vfsrvjont42/12/2023Neuroma of second interspace of left foot06/10/2023ancreatitis ([facility])06/10/2023aresthesia of skin06/10/2023 Positive reaction to tuberculin skin test06/10/2023ostmenopausal atrophic /12/2023Spondylosis of lumbar spine06/10/2023Urge incontinence of urine06/10/2023Uterine pkkzfksda19/12/2023osterior tibialis tendinitis of both lower uilouckvyja69/14/2023cquired pes planovalgus of left foot03/12/2023 Acquired pes planovalgus of right foot03/12/2023 Resolved Problems ProblemNoted DateDiagnosed DateResolved DateIncomplete bladder emptying /Screening for colorectal kfnkua87/ Microscopic dpocneutn05Menorrhagiaain in female genitalia on rjcjtwytdue79Postmenopausal bleeding Postinfective urethral stricture in nhbkek3706/10/2023 03/16/2025Pain in both feet Immunizations ImmunizationAdministration DatesNext BoiZTZ88/01/2021DTaP, Hnjtzcqblbj17/13/2011 Influenza, High Dose Seasonal, Preservative Free07/01/2018,07/30/2016Influenza, Seasonal, Quadrivalent, Qjazxcubxb04/21/2023Influenza, Xsvggkspswq06/21/2023, 07/01/2022,06/26/2021,06/23/2020,05/30/2020,08/03/2019,07/01/2018,08/04/2017, 07/16/2017,07/30/2016,07/29/2015,07/04/2015Influenza, injectable, quadrivalent 08/04/2017Influenza, injectable, quadrivalent, preservative free06/05/2022, 05/30/2020,07/29/2015Influenza, seasonal, injectable, preservative free 06/29/2018Pneumococcal Conjugate PCV 13110/14/2014Pneumococcal Polysaccharide DXHG064510/13/2015,09/28/2015Td (adult), 5 Lf tetanus toxoid, preservative free, ngjvmoyg34/06/2015Td (adult), qzhbodwjknb83/05/1999 Family History Medical HistoryRelationNameCommentsLymphomaBrotherLung cancerCousinArthritis FatherCOPDFatherCancerFatherCoronary artery diseaseFatherDiabetesFatherHeart diseaseFatherHypertensionFatherRaynaud syndromeFatherArthritisMotherCOPDMother DiabetesMotherHeart diseaseMotherHypertensionMotherMultiple sclerosisNephew RelationNameStatusCommentsBrotherCousinAliveFatherDeceasedMotherDeceasedNephew Alive Social History Tobacco UseTypesPacks/DayYears UsedDateSmoking Tobacco: Every DayCigarettes Started: 04/29/1991Smokeless Tobacco: Never Tobacco Cessation:Ready to Q uit: No Comments:11-20 cigarettes per day Alcohol UseStandard Drinks/WeekCommentsYes0 (1 standard drink = 0.6 oz pure alcohol)2-4 times a monthAUDIT-CAnswerDate RecordedQ1: How often do you have a drink containing alcohol?Monthly or less03/16/2025Q2: How many drinks containing alcohol do you have on a typical day when you are drinking?1 or Q3: How often do you have six or more drinks on one occasion?Never03/16/2025PHQ-2 AnswerDate RecordedPatient Health Questionnaire-2 Zoxuz142 CommentsNoSex and Gender InformationValueDate RecordedSex Assigned at BirthNot on fileLegal LepRchubb87/15/2023 6:35 PM EDTGender IdentityNot on fileSexual OrientationNot on file Last Filed Vital Signs Vital SignReadingTime TakenCommentsBlood Wgptntmd499/8403/16/2025 10:37 AM EDT Pulse--Temperature--Respiratory Rate--Oxygen Saturation--Inhaled Oxygen Concentration--Gadkpw14.4 kg (175 lb)03/16/2025 10:37 AM FOFNoxbct743.8 cm (5' 4.5 )03/16/2025 10:37 AM EDTBody Mass Index29.57003/16/2025 10:37 AM EDT Plan of Treatment DateTypeDepartmentCare Team (Latest Contact Info)Plwabhlydds30/09/2026 10:45 AM EDTOffice Visit [facility] [address] [place] [address] Yani Madrid MD [address] [place] [address] 04/12/2026 10:30 AM EDTOffice Visit [facility] [place] [facility] [address] [place] [address] Marco Castro, [address] [place] [address] Insurance Care Teams Team MemberRelationshipSpecialtyStart DateEnd Date Ruddy Alvarado DO [address] [facility] [place] [id number] PCP - GeneralInternal Medicine03/12/23
--- OUTSIDE RECORDS SUMMARY | 2025-08-23 15:54 | XMS_ITS | Patient Health Record ---
Author Organization [employer] [facility] Address [address] [place] [address] Care Team Providers Care Casing Material Weigher Name Role Phone Kelle Mckeon Primary Care Provider Sabine Krishnan Unavailable [phone] Reason For Referral No Information Medications Medication SIG (Take, Route, Frequency, Duration) Notes Start Date End Date Status Ambien ActiveAtenololActiveCrestorActiveVitamin O0CfxwpbWncbxyebljihw SodiumActive ArmodafinilActiveASAActiveLexaproActivePepcidActiveVitamin S8SkxvwmBngvieoRvbcva Vitamin CActive Plan Of Treatment No Information Insurance Providers Payer Name Payer Address Payer Phone Subscriber Number Group Number Insured Name Patient Relationship to Insured Coverage Start Date Coverage End Date [employer] Non-Par [address] [place] [phone] [id number] KATEChiki - patient is the [id number] 2022ENTAL [facility] [address] [place] [phone] - patient is the [id number] [employer] [address] [place] [id number]ta - patient is the [id number] 2022
--- OUTSIDE RECORDS SUMMARY | 2025-08-23 15:54 | XMS_ITS | Clinical Summary ---
Author Organization [facility] Address [address] [place] [address] Care Team Providers Care Naturalization Examiner Name Role Phone Unavailable Primary Care Provider Unavailabl e Social History Tobacco UseTypesPacks/DayYears UsedDateSmoking Tobacco: Never Assessed CommentsUnknownSex and Gender InformationValueDate RecordedSex Assigned at Not on fileLegal EswPnlzwt86/29/2022 10:49 PM EDTGender IdentityNot on file Sexual OrientationNot on file Plan of Treatment Not on file
--- NOTE | 2025-08-23 15:56 | MM_ITS ---
Patient Name: BAHMAN LOVE MR#: [id number] : 1950 Exam Date: 08/23/2025 Ordering Doctor: DR CECILIA BROWN RADIOLOGY REPORT PROCEDURE: MM TOMOSYNTHESIS SCREENING BI COMPARISON: MM TOMOSYNTHESIS SCREENING BI, 08/20/2024. MM TOMOSYNTHESIS SCREENING BI, 07/16/2023. MG MAMM SCREEN 3D KIP CAD, 07/01/2022. MG MAMM KIP SCRN W CAD DIG, 03/10/2014. INDICATIONS: Screening Calculator Name NCI Breast Cancer Risk Assessment Tool 5 Year Breast Cancer Risk 1.60% Lifetime Breast Cancer Risk 3.20% Personal Breast Cancer No Personal Ovarian Cancer No Treatments None Family Cancers Aunt-maternal with breast cancer at age 70; Brother with lymphoma cancer at age 56; Father with prostate cancer at age 80. LOCATION: [facility] BREAST COMPOSITION: There are scattered areas of fibroglandular density. FINDINGS: DIAGNOSTIC CATEGORY 1--NEGATIVE. RIGHT BREAST: No significant suspicious finding. LEFT BREAST: No significant suspicious finding. RECOMMENDATIONS: ROUTINE MAMMOGRAM AND CLINICAL EVALUATION IN 12 MONTHS. Dictated by: Trino Sotomayor DO on 08/24/2025 at 10:42 Approved by: Trino Sotomayor DO on 08/24/2025 at 10:44
--- OUTSIDE RECORDS SUMMARY | 2025-08-23 15:58 | XMS_ITS | CCD ---
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 Role Phone Omari Castrejon Unavailable Omari Ayers Unavailable DAY REYES Primary Care Physician [phone] DO Ruddy Reyes Primary Care Provider [phone] MD Omari Castrejon Attending Provider Ruddy Reyes Unavailable GALARZA ., DR COX Consulting Unavailable GALARZA ., DR COX Attending Unavailable GALARZA ., DR COX Admitting Unavailable ERIC, DR ADAMS Primary Care Unavailable WILMA, DR JAKE Renae Consulting Unavailable ERIC, DR ADAMS Admitting Unavailable REIC, DR ADAMS Primary Care Unavailable ERIC, DR ADAMS Attending Unavailable HAY ., DR HEWITT Consulting Unavailable HAY ., DR HEWITT Attending Unavailable ERIC, DR ADAMS Primary Care Unavailable HAY ., DR HEWITT Admitting Unavailable CELSO, JOE Consulting Unavailable CELSO, JOE Attending Unavailable CELSO, JOE Admitting Unavailable ERIC, DR ADAMS Primary Care Unavailable PAY ., DR MCALLISTER Consulting Unavailable PAY ., DR MCALLISTER Attending Unavailable ERIC, DR ADAMS Primary Care Unavailable PAY ., DR MCALLISTER Admitting Unavailable CELSO, JOE Consulting Unavailable CELSO, JOE Attending Unavailable CELSO, JOE Admitting Unavailable ERIC, DR ADAMS Primary Care Unavailable MONROEVIOLETTA Malagon Consulting Unavailable COLTON ., RAMY Consulting Unavailable COLTON ., RAMY Attending Unavailable COLTON ., RAMY Admitting Unavailable ERIC, DR ADAMS Primary Care Unavailable ERIC, DR ADAMS Primary Care Unavailable MARKER ., DR SAPP Attending Unavailable MARKER ., DR SAPP Admitting Unavailable JERRY, DR SUZI Ballesteros Consulting Unavailnancy DILLON, DR JAKE Renae Consulting Unavailable MARKER ., DR SAPP Consulting Unavailable JOSH MUNOZ Consulting Unavailable ERIC, DR ADAMS Admitting Unavailable ERIC, DR ADAMS Primary Care Unavailable ERIC, DR ADAMS Consulting Unavailable ERIC, DR ADAMS Attending Unavailable KEVIN, DR BROOKS Attending Unavailable KEVIN, DR BROOKS Admitting Unavailable ERIC, DR ADAMS Primary Care Unavailable WEST, DR OMARI Weinstein Consulting Unavailable KEVIN, DR BROOKS Consulting Unavailable DO Ruddy Reyes Primary Care Provider MD Omari Castrejon Attending Provider RUDDY REYES Primary Care Physician [phone] DO Ruddy Reyes Primary Care Provider DO Marco Castro Attending Provider MD Omari Castrejon Attending Provider DO Ruddy Reyes Primary Care Provider DO Marco Castro Attending Provider Ruddy Reyes Primary Care Unavailable Marco Castro Admitting Unavailable Marco Castro Attending Unavailable Omari Castrejon Admitting Unavailable Omari Castrejon Attending Unavailable Ruddy Reyes Primary Care Unavailable Omari Castrejon Admitting Unavailable Omari Castrejon Attending Unavailable Ruddy Reyes Primary Care Unavailable Ruddy Reyes Primary Care Unavailable Marco Castro Admitting Unavailable Marco Castro Attending Unavailable Ruddy Reyes DO Primary Care Provider Ruddy Reyes DO Primary Care Provider KIRSTIN MADRID Attending Unavailable MARCO CASTRO Attending Unavailable KIRSTIN MADRID Attending Unavailable Brooke GALARZA Attending Unavailable Brooke GALARZA Attending Unavailable Brooke GALARZA Attending Unavailable Allergies Allergy ClassificationReported Allergen(s)Allergy TypeDate of OnsetReaction(s) Facility (20 sources)atorvastatin; Translations: [atorvastatin]Drug [id number] Unknown, [facility]Reg[facility] EastComment on above:pt unsure if this is an allergy, she had pancreatitis twice while taking this (20 sources)ezetimibe / SimvastatinDrug AllergyUnknoWestern [facility] [employer] Other (20 sources)NSAIDs; Translations: [Non-steroidal anti-inflammatory agent (substance)]Propensity to adverse jkophzhjl17-65-5666Kvifqb (finding), Unknown [facility] (13 sources)ezetimibe; Translations: [ezetimibe]Drug Dnrbjkq33-51-8115 [facility]pt unsure if this is an allergy, she had pancreatitis twice while taking this (9 sources)Simvastatin; Translations: [simvastatin]Drug Rnlrlhf28-38-2791 [facility], [facility]Comment [facility]pt unsure if this is an allergy, she had pancreatitis twice while taking this (7 sources)NSAIDS (Non-Steroidal Anti-Inflamma; Translations: [NSAIDS (Non- Steroidal Anti-Inflamma]Propensity to adverse ofqtlwwoc02-26-9813Wqntfdascjhb [facility] (1 source)NSAIDsDrug allergy (disorder)83-21-8411[facility] (2 sources)patient allergy list reviewed by nurse or physiciaPropensity to adverse ycuqphmqa01-67-3804Wjnnmco:Donews Other (1 source)atorvastatinDrug Brztdjl71-90-0211QsdjkynvqReg[facility] (4 sources)NITROFURANTOIN, MACROCRYSTALS / Nitrofurantoin, Monohydrate; Translations: [nitrofurantoin]Drug AllergyUnknown (qualifier value)[facility] (4 sources)atorvastatinDrug Dcvegzh26-93-4563AlxxlQJ[facility] (4 sources)NitrofurantoinDrug Vyylbwj01-03-5188WfinbnoNLLW Healthcare (4 sources)OtherAllergy to lszheeopd46-93-1418IupjeTZVL Healthcare (2 sources)nonsteroidal anti-inflammatory agents; Translations: [nonsteroidal anti-inflammatory agents]Drug mnfdnga36-29-0653Whismtz (qualifier value) [facility] Medications Current Medications MedicationDrug Class(es)DatesSig (Normalized)Sig (Original)acetaminophen 325 mg oral capsule (6 sources)Start: 38-25-4953xdbd 1 capsule by mouth three times daily as needed for painAcetaminophen (Tylenol) 325 mg Capsule Active 325 MG PO Three times daily as needed for Pain July 17, 2020 12:00amacetaminophen 325 mg / HYDROcodone bitartrate 5 mg oral tablet (20 sources)Opioid AgonistStart: 71-79-7340qtjq 1 tablet by mouth every six hours as needed for painHydrocodone-Acetaminophen 5-325 mg tablet Active 1 TAB PO Every 6 hours as needed for pain 28 January 03, 2025Start: 26-97-3630Crbla 325 mg-7.5 mg oral tablet 1 tab(s), Oral, q4hr for pain, 2 tab(s), Refill(s) 0, [id number], 165, cm, 11/03/23 9:45:00 EST, Height/Length Dosing, 79, kg, 11/03/23 9:45:00 EST, Weight Dosing Start Date: 11/03/23 Status: OrderedStart: 41-93-8452yhfw 1-2 tablets by mouth every six hours as needed for pain HYDROcodone-Acetaminophen 7.5-325 MG 1-2 tablets Orally every 6 hrs as needed for pain for 7 days January, Not-TakingStart: 74-53-3931tfmt 2 tablets by mouth every six hours as needed for painHYDROcodone-Acetaminophen 5-325 MG 2 tablets Orally every 6 hrs as needed for pain for 7 days January, Active acyclovir 800 mg oral tablet (20 sources)Herpesvirus Nucleoside Analog DNA Polymerase Inhibitor, Herpes Simplex Virus Nucleoside Analog DNA Polymerase Inhibitor, Herpes Zoster Virus Nucleoside Analog DNA Polymerase InhibitorStart: 17-64-7068orll 1 tablet by mouth once dailyAcyclovir 800 MG 1 tablet Orally 5x daily for 10 days January, Activetake 1 tablet by mouth every twelve hoursAcyclovir 800 MG 1 tablet Orally Twice a day Activeamitriptyline hydrochloride 10 mg oral tablet (6 sources)Tricyclic AntidepressantStart: 67-62-0216lfje 1 tablet by mouth every twenty-four hoursAmitriptyline HCl 10 MG 1 tablet at bedtime Orally Once a day for 30 days January, ActiveStart: 21-60-4832lopc 1 tablet by mouth every twenty-four hoursAmitriptyline HCl 25 MG 1 tablet at bedtime Orally Once a day for 30 day(s) Feb, Not-Takingamphetamine aspartate 5 mg / amphetamine sulfate 5 mg / dextroamphetamine saccharate 5 mg / dextroamphetamine sulfate 5 mg oral tablet (20 sources)Central Nervous System StimulantStart: 03-04-2024 End: 95-75-5170Zfynbtewcnegyikls-Amphetamine (Adderall) 20 mg tablet Active 10 MG PO Twice daily 90 90 September 08, 2024Start: 38-31-2689udcb 1 mg by mouth twice dailyAdderall 10 mg oral tablet mg, tab(s), Oral, BID, Refill(s) 0 Start Date: 10/06/23 Status: Ordered Repeat number: 1Start: 22-21-6802Csibylwr Oral, BID, Refill(s) 0 Start Date: 01/10/20 Status: OrderedStart: 02-11-2019 End: 50-42-2662wasj 1 tablet by mouth once dailyamphetamine-dextroamphetamine (Adderall) 20 MG tablet TAKE /2-1 TABLET BY MOUTH ONCE A DAY 07/14/2023 Active armodafinil 150 mg oral tablet (9 sources)Start: 28-58-7095aszs 1 tablet by mouth every twenty-four hours Armodafinil 150 MG 1 tablet Orally Once a day for 30 days Oct, Active Start: 14-98-5060acex 1 tablet by mouth every twenty-four hoursArmodafinil 250 MG 1 tablet in the morning Orally Once a day for 30 days Aug, Active Start: 55-00-2286csjk 1 tablet by mouth every twenty-four hoursArmodafinil 250 MG 1 tablet Orally Once a day for 30 day(s) Diagnosis Narcolepsy G47.411 Aug, Not-TakingAscorbic Acid (20 sources)Vitamin CAscorbic Acid (VITAMIN C PO) ActiveVitamin C Not-Taking Vitamin C ActiveAspir-81 (20 sources)Aspir-81 Activeaspirin 81 mg chewable tablet (20 sources)Platelet Aggregation Inhibitor, Nonsteroidal Anti-inflammatory Drug Start: 81-51-1373xromkje 81 mg Chew Tab mg tab(s), Chewed, Daily, Refills(s) 0 Start Date: 10/06/23 Status: Ordered Repeat number: 1Start: 20-14-2098fxbn 1 tablet by mouth once dailyAspirin 81 mg Tablet,Delayed Release (Dr/Ec) Active 81 MG PO Daily July 17, 2020 12:00amStart: 47-77-6145pffvvbj Refills(s) 0 Start Date: 01/10/20 Status: Orderedtake 1 tablet by mouth once dailyAspirin 81 81 MG 1 tablet Orally Once a day Activeatenolol 25 mg oral tablet (20 sources)beta-Adrenergic BlockerStart: 94-73-4307mgkl 0.5 tablet by mouth once dailyatenolol 25 mg Tab 0.5 tab, Oral, Daily, Refills(s) 0 Start Date: 06/23/23 Status: Ordered Repeat number: 1Start: 61-82-2052xjjaqvdz 25 mg Tab Refills(s) 0 Start Date: 06/23/23 Status: OrderedStart: 07-17-2020 End: 33-54-8399Zrbbsffx 25 mg tablet Active 12.5 MG PO Daily at bedtime 45 90 March 08, 2024 3:24pmStart: 28-49-3431izxk 12.5 mg by mouth once daily at bedtimeAtenolol Active 12.5 MG PO Daily at bedtime July 17, 2020 12:00am Start: 06-92-1826nkpatrot Oral, Daily, Refills(s) 0 Start Date: 01/10/20 Status: Orderedazithromycin 250 mg oral tablet (17 sources)Macrolide AntimicrobialStart: 50-64-0109zfgi 250 mg by mouth once dailybaclofen 10 mg oral tablet (14 sources)gamma-Aminobutyric Acid-ergic AgonistStart: 11-42-9731wwfm 1 tablet by mouth every twelve hoursbisacodyl 5 mg delayed release oral tablet (3 sources)Stimulant LaxativeStart: 67-03-7856opph 3 tablets by mouth every twenty-four hoursDulcolax 5 MG 3 TABLETS Orally Once a day for 1 days Dec, ActiveCalcium (20 sources)Phosphate Binder, CalciumCALCIUM PO ActiveCalcium 150 MG Orally Activecalcium carbonate 1500 mg / cholecalciferol 0.01 mg oral tablet (6 sources)Vitamin DStart: 09-09-4586kxwp 1 tablet by mouth twice dailyCalcium Carbonate-Vitamin D3 (Calcium 600 + D(3)) 600 mg(1,500mg) -400 unit Tablet Active 1 TAB PO Twice daily September 04, 2020 1:00amcalcium citrate 950 mg oral tablet (9 sources)Start: 62-44-8332ypjh 1 mg by mouth twice dailycalcium (as calcium citrate) 200 mg oral tablet mg tab(s), Oral, BID, Refills(s) 0 Start Date: Status: Ordered Repeat number: 1citalopram 10 mg oral tablet (6 sources)Serotonin Reuptake Inhibitortake 1 tablet by mouth every twenty-four hoursCitalopram Hydrobromide 10 MG 1 tablet Orally Once a day ActiveCitalopram Hydrobromide ActiveclonazePAM 0.5 mg oral tablet (20 sources)BenzodiazepineStart: 68-58-3499Bbijf: 07-17-2020 End: 06-93-3951ecdb 0.25 mg by mouth once daily as needed for anxietyClonazepam 0.5 mg Tablet Discontinued 0.25 MG PO Daily as needed for Anxiety July 17, 2020 12:00am February 26, 2024 7:15amStart: 07-17-2020 End: 95-63-9383owha 0.25 mg by mouth once dailyClonazepam Discontinued 0.25 MG PO Daily July 17, 2020 12:00am February 26, 2024 7:15amclonazePAM PRN Active take 1 tablet by mouth every twelve hoursKlonoPIN 0.5 MG 1 tablet Orally Twice a day hardly ever takes Not-TakingclonazePAM Activeescitalopram 10 mg oral tablet (20 sources)Serotonin Reuptake InhibitorStart: 05-21-5682jrfl 1 tablet by mouth once dailyescitalopram 10 mg Tab 10 mg = 1 tab(s), Oral, Daily Start Date: 05/02/25 Status: Ordered Repeat number: 1Start: 87-52-8038maza 1 tablet by mouth once daily at bedtimeEscitalopram Oxalate 10 mg tablet Active 0 .ROUTE .COMPLEX 90 June 02, 2024 11:17am TAKE 1 TABLET BY MOUTH EVERYDAY AT BEDTIMEStart: 02-12-2022 End: 35-88-9516glri 1 tablet by mouth at bedtimeescitalopram (Lexapro) 10 MG tablet Take 10 mg by mouth at bedtime 08/29/2023 ActiveStart: 03-94-4231Hklpoff Oral, Daily, Refills(s) 0 Start Date: 01/10/20 Status: OrderedEscitalopram Oxalate ActiveLexapro Not-Takingestradiol 0.1 mg/ml vaginal cream (20 sources)EstrogenStart: 46-13-4272ukplyquoc 0.1 mg/g Vag Crm 1 gm, Vaginal, MonWedFri, 42.5 gm, Refill(s) 3, [facility] [id number], 165, cm, 03/09/24 13:28:00 EDT, Height/Length Dosing, 78.1, kg, 03/09/24 13:28:00 EDT, Weight Dosing Start Date: 11/17/24 Status: Ordered Quantity: 42.5 Unit: g Repeat number: 4Start: 17-82-3964qptutrtqh 0.1 mg/g Vag Crm 1 gm, Vaginal, MonWedFri, 42.5 gm, Refill(s) 3, [facility] [id number], 165, cm, 11/03/23 9:45:00 EST, Height/Length Dosing, 79, kg, 11/03/23 9:45:00 EST, Weight Dosing Start Date: 11/03/23 Status: OrderedStart: 21-95-8630kfltzjrgv 0.1 mg/g Vag Crm 1 gm, Vaginal, MonFri, 42.5 gm, Refill(s) 3, [facility] [id number], 165, cm, 05/13/22 11:03:00 EDT, Height/Length Dosing, 81, kg, 05/13/22 11:03:00 EDT, Weight Dosing Start Date: 09/25/22 Status: OrderedStart: 02-35-0545xibmonszo (Estrace) 0.1 MG/GM vaginal cream Insert 1 g into the vagina 09/25/2022 ActiveStart: 35-83-2187ntxabybni 0.1 mg/g vaginal cream 0.5 - 0.75gm, Vaginal, MonFri, # 42.5 gm, Refills(s) 3, Pharmacy: [id number], 165, cm, 06/29/21 11:13:00 EDT, Height/Length Dosing, 81, kg, 06/29/21 11:13:00EDT, Weight Dosing Start Date: 06/29/21 Status: OrderedEstradiol 0.75 MG/1.25 GM (0.06%) 1 pump to skin to arm Transdermal Once a day Activefamotidine 40 mg oral tablet (20 sources)Histamine-2 Receptor AntagonistStart: 44-62-7608nnfz 1 tablet by mouth once daily at bedtimeFamotidine 40 mg tablet Active 0 .ROUTE .COMPLEX June 01, 2024 1:04pm TAKE 1 TABLET BY MOUTH EVERYDAY AT BEDTIMEStart: 06-30-2020 End: 26-62-6001hsiueqtmvl 40 mg Tab Refills(s) 0 Start Date: 06/30/20 Status: Ordered Repeat number: 1Start: 06-30-2020 End: 31-25-4921betm 1 tablet by mouth twice dailyFamotidine 40 mg tablet Discontinued 40 MG PO Twice daily February 22, 2021 12:00am October 13, 2024 10:37amFamotidine ActiveFish Oils (20 sources)Start: 71-97-3711Kdhz Oil Oral, Refill(s) 0 Start Date: 01/10/20 Status: Orderedtake 1 capsule by mouth once dailytake 1 capsule by mouth once dailyFish Oil 1000 MG 1 capsule Orally Once a day Activegabapentin 100 mg oral capsule (17 sources)Anti-epileptic AgentStart: 37-69-2522xigt 1 capsule by mouth every eight hoursGabapentin 100 MG 1 capsule Orally tid for 30 days January, Activetake 1 capsule by mouth every twenty-four hoursGabapentin 300 MG 1 capsule Orally Once a day Activelevothyroxine sodium 0.125 mg oral tablet (20 sources)l-ThyroxineStart: 57-41-7262wply 1 tablet by mouth once daily Levothyroxine 125 mcg tablet Active 0 .ROUTE .COMPLEX July 22, 2024 8:39am TAKE 1 TABLET BYMOUTH ONCE EVERY DAY ON AN EMPTY STOMACHStart: 06-23-2023 levothyroxine 125 mcg (0.125 mg) Tab Refills(s) 0 Start Date: 06/23/23 Status: Ordered Repeat number: 1Start: 09-04-2020 End: 46-27-7929qdti 1 tablet by mouth once dailylevothyroxine (Synthroid, Levoxyl) 125 MCG tablet TAKE 1 TABLET BY MOUTH ONCE EVERY DAY ON AN EMPTYSTOMACH 01/06/2023 ActiveStart: 07-17-2020 End: 88-88-0237rnsl 1 tablet by mouth once dailyLevothyroxine 137 mcg tablet Discontinued 137 MCG PO Daily July 17, 2020 12:00am August 3:22pmStart: 75-25-7485vcooavuwbiogv Daily, Refills(s) 0 Start Date: 01/10/20 Status: Orderedtake 1 tablet by mouth every twenty-four hoursLevothyroxine Sodium 150 MCG 1 tablet Orally Once a day Activeloratadine 10 mg oral tablet (8 sources)take 1 tablet by mouth every twenty-four hoursClaritin 10 MG 1 tablet Orally Once a day Nrrzjd08 hr mirabegron 50 mg extended release oral tablet (2 sources)beta3-Adrenergic AgonistStart: 05-02-2025 End: 30-06-7380qcbb 1 tablet by mouth once dailymirabegron 50 mg oral tablet, extended release 50 mg = 1 tab(s), Oral, Daily, X 30 day(s), # 30 tab(s), Refills(s) 11, [facility]acy: [id number], 165, cm, 03/09/24 13:28:00 EDT, Height/Length Dosing, 78.1, kg, 03/09/24 13:28:00 EDT, Weight Dosing Start Date: 05/02/25 Stop Date: 04/27/26 Status: Ordered Quantity: 30.0 Unit: tab(s) Repeat number: 12 Indications: Urge incontinence;MiraLax 17 GM/SCOOP (3 sources)Start: 45-61-3329FvpxQpt 17 GM/SCOOP 238 GRAMS Orally Once a day for 1 days Dec, Activemometasone furoate 1 mg/ml topical lotion (8 sources)CorticosteroidStart: 04-96-5273Dhkxxznand Furoate 0.1 % 4 drops Externally Once a day as needed for 30 days Jun, ActiveStart: 07-02-2023 Mometasone Furoate 0.1 % 4 drops Externally Once a day as needed for 30 days Jun, Activeondansetron 4 mg oral tablet (13 sources)Serotonin-3 Receptor Antagonisttake 1 tablet by mouth every twenty- four hoursOndansetron HCl 4 MG 1 tablet Orally Once a day Pmprao91 hr oxybutynin chloride 10 mg extended release oral tablet (1 source)Cholinergic Muscarinic AntagonistStart: 03-16-2025 End: 04-64-6193sbwx 1 tablet by mouth once dailyoxybutynin XL (Ditropan-XL) 10 MG 24 hr tablet Indications: Urinary urgency Take 1 tablet (10 mg) by mouth Daily Do not crush, chew, or split. 90 tablet 3 03/16/2025 03/16/2026 Active pantoprazole 40 mg delayed release oral tablet (20 sources)Proton Pump InhibitorStart: 14-53-3790ugpj 1 tablet by mouth every twenty-four hoursPantoprazole Sodium 20 MG 1 tablet Orally Once a day for 30 days Oct, ActiveStart: 07-17-2020 End: 86-62-0618amjz 1 tablet by mouth once dailyPantoprazole 40 mg tablet,delayed release (DR/EC) Discontinued 40 MG PO Daily July 17, 2020 12:00am February 22, 2021 2:21pmStart: 84-03-2462ikec 1 tablet by mouth every twelve hoursProtonix Not-Takingpromethazine hydrochloride 25 mg oral tablet (13 sources)Phenothiazinetake 1 tablet by mouth every six hours as needed for nauseaPromethazine HCl 25 MG 1 tablet as needed Orally every 6 hrs as needed for nausea for 7 days Activerosuvastatin calcium 20 mg oral tablet (20 sources)HMG-CoA Reductase InhibitorStart: 94-51-5535yzci 1 tablet by mouth once daily in the eveningRosuvastatin 20 mg tablet Active 0 .ROUTE .COMPLEX 90 August 27, 2024 8:03am TAKE 1 TABLET BY MOUTH EVERY DAY IN THE EVENINGStart: 02-12-2022 End: 17-67-2712cyeounaydive 20 mg Tab Refills(s) 0 Start Date: 06/23/23 Status: Ordered Repeat number: 1Crestor ActiveCarafate (3 sources)Aluminum ComplexStart: 60-53-2699Elcixbnv gm, Oral, QIDACHS, Refills(s) 0 Start Date: 06/29/21 Status: OrderedStart: 12-57-6657uluy 1 tablet by mouth every six hoursSucralfate 1 GM 1 TABLET Orally FOUR TIMES A DAY for 30 day(s) Apr, Activesulfamethoxazole 800 mg / trimethoprim 160 mg oral tablet (2 sources)Dihydrofolate Reductase Inhibitor Antibacterial, Sulfonamide AntimicrobialStart: 05-91-0714xwvf 1 tablet by mouth every twelve hours Sulfamethoxazole-Trimethoprim 800-160 MG 1 tablet Orally bid for 5 days Aug, Activeterbinafine hydrochloride 10 mg/ml topical cream (3 sources)Allylamine AntifungalStart: 03-03-2025 End: 62-63-6677fqxiggljaxh (LamISIL) 1 % cream Indications: Tinea pedis of left foot Apply topically in the morning and before bedtime. 30 g 1 03/03/2025 04/02/2025 Activetretinoin 0.25 mg/ml topical cream (3 sources)RetinoidStart: 03-03-2025 End: 39-97-4929yhtbftkvw (Retin-A) 0.025 % cream Indications: Lentigines Apply topically at bedtime Apply thin layer to face at bedtime 45 g 11 03/03/2025 03/03/2026 ActiveVitamin B-6 100 MG (20 sources)Vitamin B-6 100 MG Orally Activevitamin b6 100 mg oral tablet (20 sources)Start: 87-01-7278ukod 1 tablet by mouth once dailyPyridoxine (Vitamin B6) (Vitamin B-6) 100 mg Tablet Active 100 MG PO Daily July 17, 2020 12:00amStart: 26-72-2221Xwjwrxn B6 Daily, Refills(s) 0 Start Date: 01/10/20 Status: Ordered Repeat number: 1Start: 34-64-9179Ezcawjp B6 Daily, Refills(s) 0 Start Date: 01/10/20 Status: OrderedVitamin D 1000 UNIT (20 sources)take 1 tablet by mouth once dailytake 1 tablet by mouth once daily Vitamin D 1000 UNIT 1 tablet Orally Once a day ActiveVitamin D3 (20 sources)Vitamin D3 ActiveZinc (1 source)Zinc Activezolpidem tartrate 5 mg oral tablet (20 sources)gamma-Aminobutyric Acid-ergic AgonistStart: 46-44-8371kglvtmcv 5 mg Tab Refills(s) 0 Start Date: 06/23/23 Status: Ordered Repeat number: 1Start: 43-62-8866ztln 0.5 tablet by mouth once dailyZolpidem Tartrate 5 MG 1/2 tablet orally once a day Feb, ActiveStart: 96-34-9424Ozklqyxy Tartrate 5 MG TAKE 1 TABLET AT BEDTIME for 30 Feb, ActiveStart: 07-17-2020 End: 75-27-9771trie 2.5 mg by mouth once daily at bedtime as neededZolpidem 5 mg tablet Discontinued 2.5 MG PO Daily at bedtime as needed for Insomnia July 17, 2020 12:00am June 24, 2024 2:22pmStart: 23-32-9570bbug 2.5 mg by mouth once daily at bedtimeZolpidem Active 2.5 MG PO Daily at bedtime July 17, 2020 12:00amStart: 95-61-2776otifijfu Once a day (at bedtime), Refills(s) 0 Start Date: 01/10/20 Status: OrderedZolpidem Tartrate PRN Activetake 0.5 tablet by mouth every twenty-four hoursAmbien 5 MG 0.5 tablet at bedtime Orally Once a day Not-TakingZolpidem Tartrate Active Completed/Discontinued Medications MedicationDrug Class(es)DatesSig (Normalized)Sig (Original)amylase 758037 unt / lipase 23326 unt / protease 172399 unt delayed release oral capsule (2 sources)Start: 77-61-8943sdvx 1 capsule by mouth every eight hoursCreon 21453-428694 UNIT 1 CAPSULE Orally THREE TIMES A DAY for 30 days Jun, Not-TakingStart: 31-10-7321Bsfcb Oral, TID, Refills(s) 0 Start Date: 06/29/21 Status: OrderedAspir-81 81 MG (8 sources)take 1 tablet by mouth once dailyAspir-81 81 MG 1 tablet Orally Once a day Not-Takingtake 1 tablet by mouth once dailyAspir-81 81 MG 1 tablet Orally Once a day Activecalcium carbonate 1500 mg oral tablet (14 sources)Start: 07-17-2020 End: 26-98-2852ensn 1 tablet by mouth twice dailyCalcium Carbonate (Calcium 600) 600 mg calcium (1,500 mg) Tablet Discontinued 600 MG PO Twice dailyJuly 17, 2020 12:00am September 04, 2020 3:25pmtake 1 tablet by mouth every twelve hours Calcium 600 MG 1 tablet with meals Orally Twice a day ActiveCephalexin (1 source)Cephalosporin AntibacterialKeflex Not-Takingcholecalciferol 0.025 mg oral tablet (18 sources)Vitamin DStart: 07-17-2020 End: 56-80-1284pagk 1 tablet by mouth once dailyCholecalciferol (Vitamin D3) (Vitamin D3) 25 mcg (1,000 unit) Tablet Discontinued 25 MCG PO Daily July 17, 2020 12:00am February 22, 2021 2:22pmCholecalciferol (Vitamin D3) 1000 units capsule 1 capsule 1 (one) time each day at the same time. Activetake 1 capsule by mouth every twenty-four hoursVitamin D3 125 MCG (5000 UT) 1 capsule Orally Once a day Activeciprofloxacin 500 mg oral tablet (4 sources)Quinolone AntimicrobialStart: 04-01-1992stji 1 tablet by mouth once dailyCipro 500 mg Tab 500 mg = 1 tab(s), Oral, Daily, take one tab day before procedure and one tab after procedure, # 2 tab(s), Refills(s) 0, Pharmacy: [facility] #[id number], 165, cm, 11/03/23 9:45:00 EST, Height/Length Dosing, 79, kg, 11/03/23 9:45:00 EST, Weight Dosing Start Date: 11/03/23 Status: Orderedcitric acid 75 mg/ml / magnesium oxide 21.9 mg/ml / picosulfate sodium 0.0625 mg/ml oral solution (1 source)Calculi Dissolution Agent, Anti-coagulantStart: 87-43-0199ntou 160 mL by mouth in the evening, then take 160 mL by mouth twice daily in the evening Clenpiq 10-3.5-12 MG-GM -GM/160ML 160 ML AT 3:00 PM AND 160 ML AT 9:00 PM Orally TWICE A DAY for 1 days PLEASE CHECK ALLERGIES Jun, Not-Taking dicyclomine hydrochloride 10 mg oral capsule (1 source)AnticholinergicStart: 27-73-7757Lshsbkkxfyy HCl 10 MG 1 Orally bid for 30 day(s) Dec, Not-TakingEstrogens, Conjugated ([facility]) (1 source)EstrogenPremarin Not-TakinghydrOXYzine hydrochloride 50 mg oral tablet (19 sources)Antihistaminetake 1 tablet by mouth every twenty-four hours hydrOXYzine HCl 50 MG 1 tablet at bedtime as needed Orally Once a day Not-Taking Ketorolac (20 sources)Nonsteroidal Anti-inflammatory Drug, Cyclooxygenase InhibitorStart: 85-38-3607Nzrxdnd per 15 mg January, 60 mgLactobacillus Combination No.4 (Probiotic) 3 billion cell Capsule (6 sources)Start: 02-22-2021 End: 44-13-1956owug 3 capsules by mouth once dailyLactobacillus Combination No.4 (Probiotic) 3 billion cell Capsule Discontinued 3000 MMU CELLS PO Daily February 22, 2021 12:00am February 12, 2022 6:54amStart: 02-22-2021 End: 05-33-9441kuqt 3 capsules by mouth once dailyLactobacillus Combination No.4 (Probiotic) 3 billion cell Capsule Discontinued 3000 MMU CELLS PO Daily February 21, 2021 11:00pm February 12, 2022 5:54amlevoFLOXacin 500 mg oral tablet (1 source)Quinolone AntimicrobialStart: 07-20-2024 End: 40-35-8330uorv 1 tablet by mouth once dailyLevofloxacin 500 mg tablet Discontinued 500 MG PO Daily 04 04July 20, 2024 12:00am September 06, 2024 10:26pmmeloxicam 15 mg oral tablet (10 sources)Nonsteroidal Anti-inflammatory DrugStart: 32-80-4788wwdj 1 tablet by mouth every twenty-four hoursMeloxicam 15 MG 1 tablet Orally Once a day for 30 days January, Not-TakingmetroNIDAZOLE 500 mg oral tablet (20 sources)Nitroimidazole AntimicrobialStart: 09-07-2024 End: 12-08-4267ggkn 1 tablet by mouth every eight hoursMetronidazole 500 mg tablet Discontinued 500 MG PO Every 8 hours 28 07September 23, 2024 12:27pm J anuary 2024 10:19amStart: 46-53-6666umqq 1 tablet by mouth every eight hoursmetroNIDAZOLE 500 MG 1 tablet Orally Three times a day for 7 days Oct, Not-TakingStart: 83-73-7235udhl 1 tablet by mouth every twelve hours metroNIDAZOLE 500 MG 1 tablet Orally Twice a day for 14 day(s) Mar, ActiveStart: 11-07-5301fcav 1 tablet by mouth every twelve hoursmetroNIDAZOLE 500 MG 1 tablet Orally Twice a day for 10 day(s) Dec, ActiveStart: 07-24-2020 End: 99-92-4474itlw 1 tablet by mouth twice dailyMetronidazole (Flagyl) 500 mg Tablet Discontinued 500 MG PO Twice daily September 08, 2020 1:00am February 22, 2021 2:21pmOmega 7-Niy-Eth-Fish Oil (Fish Oil) 1,200 (144-216) mg Capsule (6 sources)Start: 07-17-2020 End: 82-86-3254mkrw 2 capsules by mouth once dailyOmega 4-Jde-Fss-Fish Oil (Fish Oil) 1,200 (144-216) mg Capsule Discontinued 2 CAP PO Daily July 17, 2020 12:00am February 26, 2024 7:14amStart: 63-99-7772rdvi 2 capsules by mouth once dailyOmega 4-Hen-Shn-Fish Oil (Fish Oil) 1,200 (144-216) mg Capsule Active 2 CAP PO Daily July 17, 2020 12:00amStart: 57-08-6684gzbw 2 capsules by mouth once dailyOmega 7-Fzr-Cgt-Fish Oil (Fish Oil) 1,200 (144-216) mg Capsule Active 2 CAP PO Daily July 16, 2020 11:00pmomeprazole 40 mg delayed release oral capsule (10 sources)Proton Pump InhibitorStart: 11-04-2024 End: 16-22-6095lpns 1 capsule by mouth once dailyOmeprazole 40 mg capsule,delayed release(DR/EC) Discontinued 0 .ROUTE .COMPLEX November 04, 2024 11:31pm January 03, 2025 10:05am TAKE 1 CAPSULE BY MOUTH EVERY DAY ON AN EMPTY STOMACH, 30 MINUTES PRIOR TO BKFSTStart: 10-13-2024 End: 67-87-0012Qnoslfkqdx 40 mg capsule,delayed release(DR/EC) Discontinued 40 MG PO Daily October 13, 2024 1:00am November 04, 2024 11:31pm Take on an empty stomach, 30 minutes prior to bkfstStart: 40-76-8467qtao 1 capsule by mouth once dailyOmeprazole 40 MG 1 capsule 30 minutes before morning meal Orally Once a day for 30 day(s) Oct, Activetake 1 capsule by mouth every twenty-four hoursOmeprazole 20 MG 1 capsule Orally Once a day Not-Taking oxyCODONE hydrochloride 5 mg oral tablet (12 sources)Opioid AgonistStart: 87-49-0616gghk 1 tablet by mouth every four to six hours as needed for painoxyCODONE HCl 5 MG 1 tablet Orally every 4-6 hours as needed for severe pain for 7 days Feb, Not-TakingStart: 02-26-2023 take 1-2 tablets by mouth every four to six hours as needed for painoxyCODONE HCl 5 MG 1-2 tablets Orally every 4-6 hours as needed for severe pain for 7 days January, ActiveStart: 63-89-8481tpmp 2 tablets by mouth every four to six hours as neededoxyCODONE HCl 5 MG 2 tablets Orally every 4 - 6 hours as needed for 7 days January, Activepravastatin sodium 40 mg oral tablet (14 sources)HMG-CoA Reductase InhibitorStart: 09-04-2020 End: 03-45-5153calz 1 tablet by mouth once daily at bedtimePravastatin 40 mg tablet Discontinued 40 MG PO Daily at bedtime September 04, 2020 1:00am January 6:45amStart: 07-17-2020 End: 59-89-5363imtn 1 tablet by mouth once dailyPravastatin 20 mg tablet Discontinued 20 MG PO Daily July 17, 2020 12:00am September 04, 2020 3:23pm Start: 53-43-0820gnxtdnkjlmj Oral, Daily, Refills(s) 0 Start Date: 01/10/20 Status: OrderedPravastatin Sodium Not-TakingpredniSONE (2 sources)predniSONE Not-TakingpredniSONE Activeprobiotic (1 source)probiotic Not-Takingpseudoephedrine hydrochloride 30 mg oral tablet (18 sources)alpha-Adrenergic AgonistStart: 07-17-2020 End: 18-34-6609sszu 1 tablet by mouth every four to six hours as needed Pseudoephedrine Hcl (Sudafed) 30 mg Tablet Discontinued 30 MG PO EVERY 4-6 HOURS as needed for Allergy Symptoms July 17, 2020 12:00am March 04, 2024 11:34am take 2 tablets by mouth every six hoursSudafed 30 MG 2 tablets as needed Orally every 6 hrs ActiverifAXIMin 550 mg oral tablet (1 source)Rifamycin AntibacterialStart: 17-42-0289avjs 1 tablet by mouth every eight hoursXifaxan 550 MG 1 tablet Orally tid for 14 day(s) Dec, Not-Takingsolriamfetol 150 mg oral tablet (20 sources)Start: 86-59-2752xbli 0.5 tablet by mouth once daily in the morning Sunosi 150 MG 1/2 tablet in the morning Orally Once a day for 30 days Mar, Not-TakingStart: 52-49-1558qekp 0.5 tablet by mouth once daily in the morningSunosi 150 MG 1/2 tablet in the morning Orally Once a day for 30 days Dec, ActiveStart: 48-32-6390ntpf 1 tablet by mouth every twenty-four hours Sunosi 75 MG 1 tablet in the morning Orally Once a day for 30 days Oct, ActiveTurmeric Curcumin (1 source)Turmeric Curcumin Not-Taking Problems Active Problems Problem ClassificationProblemDateDocumented DateEpisodic/ChronicAbdominal pain (20 sources)Abdominal pain; Translations: [Unspecified abdominal pain]Onset: 11-50-5701PzprqilvWznhsvce foot deformities (8 sources)Acquired hammer toe of lesser toe of left foot; Translations: [Other hammer toe(s) (acquired), leftfoot]Onset: 977404-93-7650YtcvrhiEzhzlbsl foot deformities (4 sources)Acquired hammer toe of lesser toe of right foot; Translations: [Other hammer toe(s) (acquired), right foot]Onset: 481094-80-1347YveoqewUvbqk bronchitis (5 sources)Acute bronchitis due to other specified organisms; Translations: [Acute bronchitis]EpisodicAnxiety disorders (20 sources)Generalized anxiety disorder; Translations: [Generalized anxiety disorder]Onset: 10-02-2021 Resolved: 11-35-9933MyarwpvWahrjv neoplasm of uterus (13 sources)Uterine leiomyoma; Translations: [Leiomyoma of uterus, unspecified] Onset: 033930-00-5615LfofhasrJwqsupa dysrhythmias (4 sources)Premature beats; Translations: [Unspecified premature beats]Onset: 83-82-1463OoxddfuIwcddki dysrhythmias (20 sources)Palpitations; Translations: [Palpitations]Onset: 10-02-2021 Resolved: 10-69-6014QgrpuvllHdojsajoab and other anemia (2 sources)Anemia; Translations: [Anemia, unspecified]EpisodicDiseases of white blood cells (2 sources)Leukocytosis; Translations: [Leukocytosis, unspecified]Onset: 98-32-4784ZmystztYmjlqnigf of lipid metabolism (20 sources)Hypercholesterolemia; Translations: [Familial hypercholesterolemia] Onset: 086221-85-0447QsvrrvzJmwwdkppyp disorders (20 sources)Gastroesophageal reflux disease; Translations: [Gastro-esophageal reflux disease without esophagitis]Onset: 11-06-2021 Resolved: 37-50-9709KsxlzjtApzcaavex hypertension (3 sources)Hypertensive disorder; Translations: [Essential (primary) hypertension]33-30-6621VfjfbhbMtgwn and electrolyte disorders (2 sources)Hypo-osmolality and hyponatremia; Translations: [HYPO-OSMOLALITY AND HYPONATREMIA]Onset: 24-44-4492RzaengqiDdhjfzeya and duodenitis (20 sources)Atrophic gastritis; Translations: [Unspecified chronic gastritis without bleeding]ChronicGastritis and duodenitis (20 sources)Gastritis; Translations: [Gastritis, unspecified, without bleeding] Onset: 02-28-2022 Resolved: 03-98-4515GnuzeqzcKwppxkeawnhfd symptoms and ill-defined conditions (18 sources)Urge incontinence; Translations: [Urge incontinence of urine]Onset: 28-52-8004ArknrfgOjsobgbuqlkkt symptoms and ill-defined conditions (20 sources)History of urinary tract infection; Translations: [Microscopic hematuria]Onset: 06-10-2023 Resolved: 969820-82-1618TjpfgdtjFgeapkaijoncy and screening for infectious disease (15 sources)Mantoux: positive; Translations: [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 given]Onset: 208661-38-8271BukacyggLmiolggrcu disorders (11 sources)Primary ovarian failure; Translations: [Other primary ovarian failure]Onset: 09-18-2018 Resolved: 941867-65-2176JdccooxVltucdqjke disorders (2 sources)Hormone replacement therapy; Translations: [Drug therapy finding] Onset: 871960-98-9162SnjojrxwNdtwpnlenrkrx mental health disorders (20 sources)Disorders of initiating and maintaining sleep; Translations: [Insufficient sleep syndrome]Onset: 10-02-2021 Resolved: 16-37-6324UxhmbabQkpl disorders (2 sources)Dysthymia; Translations: [Dysthymic disorder]Onset: 47-91-2961Ezvsyqp Mycoses (2 sources)Tinea pedis; Translations: [Tinea pedis]71-64-9634WtxvgskkVvvrrg and vomiting (4 sources)Nausea; Translations: [NAUSEA]Onset: 01-68-3757WmoldugePsqnskkgy of unspecified nature or uncertain behavior (4 sources)Neoplasm of uncertain behavior of skin; Translations: [Neoplasm of uncertain behavior of skin]Onset: 714709-27-7920PxtovrsxSdpdlxvkgvo chest pain (2 sources)Chest pain; Translations: [Chest pain, unspecified]Episodic Nutritional deficiencies (6 sources)Vitamin D deficiency, unspecified; Translations: [Vitamin D deficiency]Onset: 65-60-5562RvqgeguCjkkkolzkbfkff (20 sources)Primary osteoarthritis of ankle; Translations: [Primary osteoarthritis, right ankle and foot]Onset: 48-72-7645ZsgcviaNaxsz aftercare (1 source)ocean transportation intermediary (current) use of aspirin; Translations: [STRUCTURAL ANALYST CURRENT USE OF ASPIRIN]Onset: 01-12-2289ZahffpmdRjjuj aftercare (2 sources)Other mcc (current) drug therapy; Translations: [OTH CORRECTION CURRENT DRUG THERAPY]Onset: 40-56-6394ZdxjxxygGiclw aftercare (2 sources)Long-term current use of drug therapy; Translations: [Other ocean transportation intermediary (current) drug therapy]EpisodicOther and unspecified benign neoplasm (6 sources)Benign neoplasm of adrenal gland; Translations: [Benign neoplasm of unspecified adrenal gland]Onset: 75-95-2481FokgizdvYnqvx and unspecified benign neoplasm (13 sources)Adrenal adenoma; Translations: [Benign neoplasm of unspecified adrenal gland]Onset: 629381-05-7141HemlecpdDkhfl and unspecified benign neoplasm (2 sources)Benign neoplasm of long bones of lower limb; Translations: [Benign neoplasm of long bones of right lower limb]EpisodicOther and unspecified benign neoplasm (2 sources)Syringoma of eyelid; Translations: [Other benign neoplasm of skin of unspecified eyelid, including canthus]52-38-2716SdfapdtvBfksu and unspecified benign neoplasm (2 sources)Skin lesion; Translations: [Hemangioma of skin and subcutaneous tissue]07-50-0501RfpbwoznRtkev and unspecified benign neoplasm (2 sources)Melanocytic nevus of trunk; Translations: [Melanocytic nevi of trunk] 98-18-3142CcoljcipHibbj congenital anomalies (2 sources)Congenital spondylolysis of lumbosacral region; Translations: [Congenital spondylolysis, lumbosacral region]Onset: 06-95-7962TwxpyrzHrfdg connective tissue disease (1 source)Neuralgia and neuritis, unspecified; Translations: [NEURALGIA AND NEURITIS UNSPECIFIED]Onset: 13-86-5145WrjsjfwmVjxhd diseases of bladder and urethra (1 source)Detrusor overactivity; Translations: [Overactive bladder]Onset: 96-38-3871JclombaLjizq diseases of bladder and urethra (1 source)Overactive -56-0180IaafijhHxcre diseases of bladder and urethra (9 sources)Urethral dwqseksdg12-97-7330KnaggfydEbvve ear and sense organ disorders (2 sources)Otitis externa of bilateral ears; Translations: [Other otitis externa, bilateral]ChronicOther ear and sense organ disorders (8 sources)Chronic eczema of external auditory canal; Translations: [Other otitis externa, bilateral]ChronicOther ear and sense organ disorders (1 source)Other otitis externa, bilateralChronicOther endocrine disorders (20 sources)Disorder of adrenal gland; Translations: [Disorder of adrenal gland, unspecified]Onset: 34-53-6333CkmojigYetmt gastrointestinal disorders (20 sources)Irritable bowel syndrome with diarrhea; Translations: [Irritable bowel syndrome with diarrhea]ChronicOther gastrointestinal disorders (4 sources)Irritable bowel syndrome with diarrheaOnset: 11-06-2021 Resolved: 76-79-9894UfuboscPkana gastrointestinal disorders (20 sources)Irritable bowel syndrome; Translations: [Other irritable bowel syndrome]Onset: 156538-70-8889QseuszfRceha gastrointestinal disorders (1 source)Other irritable bowel syndromeOnset: 04-09-2022 Resolved: 26-78-3265GilhwykCdbel gastrointestinal disorders (3 sources)Irritable bowel syndrome without diarrhea; Translations: [Irritable bowel syndrome]ChronicOther gastrointestinal disorders (2 sources)Irritable bowel syndrome characterized by constipation; Translations: [Irritable bowel syndrome with constipation]ChronicOther gastrointestinal disorders (1 source)Abdominal distension (gaseous); Translations: [ABDOMINAL DISTENSION GASEOUS]Onset: 02-51-5504BccovneeBkstf gastrointestinal disorders (1 source)Drug induced constipationEpisodicOther gastrointestinal disorders (4 sources)Diarrhea; Translations: [Diarrhea]Onset: 04-23-4755ZpdqptsxMfojc inflammatory condition of skin (2 sources)Pruritus, unspecified; Translations: [Pruritus]55-31-4461Xmrwhjxs Other injuries and conditions due to external causes (2 sources)History of fall; Translations: [History of falling]EpisodicOther liver diseases (20 sources)Inflammatory disease of liver; Translations: [Inflammatory liver disease, unspecified]ChronicOther liver diseases (3 sources)Inflammatory liver disease, unspecifiedChronicOther liver diseases (2 sources)Disease of liver; Translations: [Other specified disorders of liver] Onset: 57-69-8244SrrtfspLhbel nervous system disorders (20 sources)Narcolepsy without cataplexy ; Translations: [Narcolepsy without cataplexy]Onset: 919465-56-7732DfgsxruNogvp nervous system disorders (13 sources)Narcolepsy without cataplexy; Translations: [Narcolepsy, without cataplexy]Onset: 10-02-2021 Resolved: 51-04-1886TwfqdyaRlvvo nervous system disorders (9 sources)Rnmdoeoivv89-13-1868GbvlhnuKqvmk nervous system disorders (1 source)Polyneuropathy, unspecified; Translations: [POLYNEUROPATHY UNSPECIFIED]Onset: 19-72-2671GdblzfoJmxnw nervous system disorders (4 sources)Neuroma of foot; Translations: [Lesion of plantar nerve, left lower limb]Onset: 166885-35-6201CyshefeXgimw nervous system disorders (2 sources)Altered sensation of skin; Translations: [Disturbance of skin sensation]EpisodicOther nutritional; endocrine; and metabolic disorders (20 sources)Body mass index 30+ - obesity; Translations: [Body mass index (BMI) 30.0-30.9, adult]ChronicOther nutritional; endocrine; and metabolic disorders (2 sources)Body mass index (BMI) 30.0-30.9, adultChronicOther nutritional; endocrine; and metabolic disorders (2 sources)Obesity; Translations: [Obesity, unspecified]ChronicOther nutritional; endocrine; and metabolic disorders (2 sources)Overweight; Translations: [Overweight]EpisodicOther screening for suspected conditions (not mental disorders or infectious disease) (20 sources)Patient encounter status; Translations: [Encounter for screening for malignant neoplasm of colon]Onset: 07-04-2015 Resolved: 204518-79-8245NbmrzcyiNkobf skin disorders (4 sources)Lentiginosis; Translations: [Other melanin hyperpigmentation] 51-07-5167AojnjtvfLkoax skin disorders (2 sources)Inflamed seborrheic keratosis; Translations: [Inflamed seborrheic keratosis]39-70-7647OmsdpbdxApxyv skin disorders (2 sources)Seborrheic keratosis; Translations: [Other seborrheic keratosis] 74-10-1749BwdhpmfxHltyb skin disorders (2 sources)Epidermoid cyst; Translations: [Epidermal cyst]96-73-8717Vajrvela Other upper respiratory disease (2 sources)Allergic rhinitis; Translations: [Allergic rhinitis, unspecified] Onset: 26-38-9790QsykfjzEipol upper respiratory infections (2 sources)Chronic sinusitis; Translations: [Chronic sinusitis, unspecified] ChronicOther upper respiratory infections (6 sources)Acute sinusitis; Translations: [Acute sinusitis, unspecified]Onset: 08-93-3605SgpyicvlUqojemczqp disorders (not diabetes) (13 sources)Pancreatitis; Translations: [Acute pancreatitis without necrosis or infection, unspecified]Onset: 434433-86-4930FsccaswaFbemnzcn enteritis and ulcerative colitis (1 source)Enteritis of small -69-0800VgrbdozIhkkdxmb codes; unclassified (20 sources)Obstructive sleep apnea syndrome; Translations: [Obstructive sleep apnea (adult) (pediatric)]46-49-2239QlhibatSzwwhmo on above:CPAPOutside Source Comment: CPAPResidual codes; unclassified (11 sources)Obstructive sleep apnea (adult) (pediatric); Translations: [Obstructive sleep apnea (adult)(pediatric)]Onset: 10-02-2021 Resolved: 01-42-1680AfzbvjgMkhlpxxn codes; unclassified (20 sources)Insomnia; Translations: [Other insomnia]ChronicResidual codes; unclassified (2 sources)Other insomniaChronicResidual codes; unclassified (1 source)Obstructive sleep apnea (adult)(pediatric); Translations: [Obstructive sleep apnea (adult) (pediatric)]Onset: 90-11-1862KrmkvkiRprqbzgg codes; unclassified (1 source)Acquired absence of other specified parts of digestive tract; Translations: [ACQ ABSENCE OTH PART DIGESTV TRACT]Onset: 13-28-6705Cixleqme Residual codes; unclassified (4 sources)Tobacco user; Translations: [Nondependent tobacco use disorder]Onset: 05-85-8068KnxndiloVhfmlbuk codes; unclassified (2 sources)Postmenopausal state; Translations: [Asymptomatic menopausal state] EpisodicResidual codes; unclassified (1 source)Insomnia, unspecified; Translations: [Insomnia, unspecified]10-21-2024 EpisodicSpondylosis; intervertebral disc disorders; other back problems (19 sources)Lumbar spondylosis; Translations: [Solitary sacroiliitis]Onset: 023783-71-6615MdogwivBymbdmtskrj; intervertebral disc disorders; other back problems (11 sources)Pain in thoracic spine; Translations: [Low back pain]Onset: 89-35-3363CyhhnotqWukhdjj and strains (6 sources)Sprain of wrist; Translations: [Sprain and strain of unspecified site of wrist]Onset: 81-02-4552YdfjluzgBikzygmbo-related disorders (18 sources)Smoker; Translations: [Nicotine dependence, cigarettes, uncomplicated]Onset: 648184-73-4703UsfddtkYvkjywk on above:Added secondary to documentation in Social History.Added secondary to documentation in Social History.Systemic lupus erythematosus and connective tissue disorders (2 sources)Autoimmune disease; Translations: [Autoimmune disease, not elsewhere classified]Onset: 64-04-5811JrehnymFivmsdu disorders (20 sources)Hypothyroidism; Translations: [Autoimmune hypothyroidism]Onset: 874733-04-4415LdqoitdVyzyvuaoqfic (2 sources)LOW BACK PAIN, UNSPECIFIED; Translations: [LOW BACK PAIN, UNSPECIFIED]Onset: 94-30-2957Ffmrcivztzzv (2 sources)Long-term current use of drug therapy; Translations: [Long-term (current) use of other medications]Onset: 87-09-6469Igfejqnetqtn (2 sources)Other ventricular tachycardia; Translations: [Other ventricular tachycardia]Unclassified (1 source)Pruritic disorder of rqwv95-17-2195Owpeiub tract infections (15 sources)Chronic cystitis; Translations: [Other chronic cystitis without hematuria]Onset: 64-56-9604WwqhmbePxbkiup tract infections (13 sources)Urinary tract infection, site not specified; Translations: [Urinary tract infectious disease]Onset: 02-03-2023 Resolved: 46-75-9742CozpbgkcPfbyq infection (20 sources)Zoster with other complications; Translations: [Zoster without complications]Onset: 44-24-1539Wydjycey Past or Other Problems Problem ClassificationProblemDateDocumented DateEpisodic/ChronicAcquired foot deformities (5 sources)Acquired pes planus; Translations: [Flat foot [pes planus] (acquired), left foot]Onset: 147730-10-2140AyoomgzpKeicelvl foot deformities (4 sources)Acquired pes planus; Translations: [Flat foot [pes planus] (acquired), right foot]Onset: 730657-13-1692NtiekhyxFnhdxgst reactions (4 sources)Contact dermatitis; Translations: [Contact dermatitis and other eczema, due to unspecified cause]Onset: 56-22-8683MfvbluppEfdkieqbb infection; unspecified site (2 sources)Bacterial infectious disease; Translations: [Bacterial infection, unspecified, in conditions classified elsewhere and of unspecified site]Onset: 27-91-7466PvzrxdllHxdmbumats and other anemia (1 source)Anemia, unspecified; Translations: [ANEMIA UNSPECIFIED]Onset: 41-44-6880EfbcckhuVbifoazg mellitus without complication (2 sources)Impaired fasting glycemia; Translations: [Impaired fasting glucose] Onset: 86-30-2301NuvsixukW Codes: Adverse effects of medical drugs (2 sources)Lipid-lowering drug adverse reaction; Translations: [Adverse effect of antihyperlipidemic and antiarteriosclerotic drugs, initial encounter]Onset: 50-55-4351IinhbucqJiperckzjc disorders (4 sources)Esophageal disorders; Translations: [Gastro-esophageal reflux disease with esophagitis, without bleeding]Headache; including migraine (2 sources)Headache; Translations: [Headache]Onset: 55-79-8368XdfcqcmoRlbwg disorders and dislocations; trauma-related (2 sources)Current tear of medial cartilage AND/OR meniscus of knee; Translations: [Peripheral tear of medial meniscus, current injury, right knee, initial encounter]Onset: 47-36-5688HdmvwhdrThcazkd and fatigue (2 sources)Malaise and fatigue; Translations: [Other malaise and fatigue]Onset: 96-32-6414UbnjmyewFcqkstssx disorders (4 sources)Menorrhagia; Translations: [Excessive and frequent menstruation with regular cycle]Onset: 06-10-2023 Resolved: 840937-53-2307NcjmithIdqpnndcwfsio gastroenteritis (20 sources)Noninfective gastroenteritis and colitis, unspecified; Translations: [Colitis]Onset: 02-28-2022 Resolved: 39-15-4560InjfpsldXfcrd and unspecified benign neoplasm (5 sources)Benign neoplasm of unspecified adrenal gland; Translations: [BENIGN NEOPLASM UNS ADRENAL GLAND]Onset: 11-06-2021 Resolved: 53-11-9988KmgwckmqUsvzy and unspecified benign neoplasm (2 sources)Benign neoplasm of left adrenal gland; Translations: [Benign neoplasm of left adrenal gland]Onset: 35-92-9356LyfrgyphPghcy connective tissue disease (2 sources)Spasm; Translations: [Spasm of muscle]Onset: 46-58-5681XcdrzykpJmemj connective tissue disease (2 sources)Tear of right rotator cuff; Translations: [Unspecified rotator cuff tear or rupture of right shoulder, not specified as traumatic]Onset: 03-04-2017 EpisodicOther connective tissue disease (2 sources)Myalgia/myositis - multiple; Translations: [Unspecified myalgia and myositis]Onset: 64-98-0874OwcpomriJdzut connective tissue disease (4 sources)Tendinitis of bilateral posterior tibialis muscles; Translations: [Posterior tibial tendinitis, right leg]Onset: 916511-52-7342VlrizortMeyzc connective tissue disease (4 sources)Pain in both feet; Translations: [Pain in right foot]Onset: 03-12-2023 Resolved: 556324-92-2002VjqpojzrAufhs connective tissue disease (4 sources)Neuropathy; Translations: [Neuralgia and neuritis, unspecified]Onset: 836141-56-2680HjqduzroHzbbs female genital disorders (4 sources)Pain in female genitalia on intercourse; Translations: [Unspecified dyspareunia]Onset: 06-10-2023 Resolved: 390139-55-2205OjvqjbgAcpks female genital disorders (4 sources)Disorder of uterine cervix; Translations: [Other specified noninflammatory disorders of cervix uteri]Onset: 833362-28-3274Qacihngd Other gastrointestinal disorders (20 sources)Dysphagia; Translations: [Dysphagia, unspecified]Onset: 01-14-2024 10-46-9675YvtibghyGpwzk gastrointestinal disorders (1 source)Personal history of other diseases of the digestive systemOnset: 01-08-2022 Resolved: 97-01-4620ZhvsmsgbIzdcl gastrointestinal disorders (1 source)Other specified diseases of intestineOnset: 01-08-2022 Resolved: 85-16-1261FdzxpvkrNjcsg liver diseases (2 sources)Elevated levels of transaminase & lactic acid dehydrogenase; Translations: [Nonspecific elevation of levels of transaminase or lactic acid dehydrogenase (LDH)]Onset: 22-24-3471YzlomhsfHzrmm lower respiratory disease (2 sources)Dyspnea; Translations: [Other forms of dyspnea] Resolved: 87-46-7954PdxyypmlJjtce nervous system disorders (6 sources)Paresthesia; Translations: [Paresthesia of skin]Onset: 09-18-2018 52-88-1061UbsjnyycEozmg non-traumatic joint disorders (4 sources)Shoulder joint pain; Translations: [Pain in joint, shoulder region] Onset: 90-78-2002BguzwfzaPccep non-traumatic joint disorders (2 sources)Arthralgia of the lower leg; Translations: [Pain in joint, lower leg] Onset: 03-78-9181FuvavwpeTbxzz nutritional; endocrine; and metabolic disorders (4 sources)Body mass index 25-29 - overweight; Translations: [Body mass index 27.0-27.9, adult]Onset: 81-23-8356PevjnbdnXguatqrz codes; unclassified (1 source)Family history of malignant neoplasm of breast; Translations: [FAMILY HX MALIG NEOPLASM OF BREAST]Onset: 02-03-6042MbwbfonlRofijfgl codes; unclassified (1 source)Family history of other malignant neoplasms of lymphoid, hematopoietic and related tissues; Translations: [FAM HX OTH MAL TRAVIS LYMPH HEMATPOETC]Onset: 41-82-8588IjplslgoOjlboeco codes; unclassified (1 source)Family history of malignant neoplasm of prostate; Translations: [FAMILY HX MALIG NEOPLASM PROSTATE]Onset: 80-16-0418SfaixdvrFgbuuhvf codes; unclassified (2 sources)C/O - a back symptom; Translations: [Other symptoms referable to back]Onset: 56-84-3160JrzwfisuWtgmdldh codes; unclassified (2 sources)Requires influenza virus vaccination; Translations: [Need for prophylactic vaccination and inoculation, Influenza]Onset: 85-23-7941Ebtfagim Screening and history of mental health and substance abuse codes (3 sources)Personal history of nicotine dependence; Translations: [History of tobacco use]Onset: 97-32-9194LughjuqaMnnf and subcutaneous tissue infections (2 sources)Paronychia of finger; Translations: [Onychia and paronychia of finger]Onset: 10-47-5899RagvjsatNjewpfdhnpys (1 source)LOW BACK PAIN, UNSPECIFIED; Translations: [LOW BACK PAIN, UNSPECIFIED] Onset: 01-27-2023 Results Test NameValueInterpretationReference RangeFacilityAmbulatory Visit Summaryon 60-24-4173Hcrfbbkihe Visit SummaryAmbulatory Visit Summary QUINKATYMERISSA I :1950 Visit Date:06/27/2025 Ambulatory Visit Instructions Your Diagnosis OAB (overactive bladder) Incomplete bladder emptying History of UTI Adrenal adenoma Postinfective urethral stricture in female Tests Performed US Renal -- Results Pending -- Please visit your patient portal for your results or contact your primary care physician. Your Care Team Attending Physician - GEOVANNI PATRICIO, Brooke Renae Primary Care Physician - RUDDY REYES DO This Is Your Medications List estradiol topical (estradiol 0.1 mg/g Vag Crm) mirabegron (mirabegron 50 mg oral tablet, extended release) Contact prescribing physician if questions or concerns amphetamine-dextroamphetamine (Adderall 10 mg oral tablet) aspirin (aspirin 81 mg Chew Tab) atenolol (atenolol 25 mg Tab) calcium citrate (calcium (as calcium citrate) 200 mg oral tablet) escitalopram (escitalopram 10 mg Tab) famotidine (famotidine 40 mg Tab) levothyroxine (levothyroxine 125 mcg (0.125 mg) Tab) pyridoxine (Vitamin B6) rosuvastatin (rosuvastatin 20 mg Tab) zolpidem (zolpidem 5 mg Tab) Procedures Performed Cystourethroscopy with dilation of urethral stricture (12/07/2013), Cystourethroscopy with dilationof urethral stricture (09/23/2013), Suspension of bladder (08/29/2011), Cataract care, Cholecystectomy, D&C - Dilatation and curettage, Procedure on back, Procedure on foot. Discharge Vitals Temperature (Temporal Artery) 37 ???C Heart Rate (Peripheral) 82 Respiratory Rate 16 Blood Pressure 137/84 Height 171 cm Height 67 in Weight 80.6 kg Weight 177.692 lb BMI 27.56 What to do next Scheduled Follow-Up Appointments Friday2025 10:45 AM EDT With: Brooke GALARZA MD Where: [facility] [address] [address]- You Need to Schedule the Following Appointments Follow Up with Brooke GALARZA MD, URL When: Where: [facility] [address] [place] [address]- Medications What How Much When Why Instructions Unchanged estradiol topical (estradiol 0.1 mg/ g Vag Crm) 1 Gram Vaginal Friday Unchanged mirabegron (mirabegron 50 mg oral tablet, extended release) 1 Tablets By Mouth Every day Urge incontinence Duration: 30 Days Unchanged amphetamine-dextroamphetamine (Adderall 10 mg oral tablet) By Mouth 2 times a day Contactprescribing physician if questions or concerns Unchanged aspirin (aspirin 81 mg Chew Tab) Chewed Every day Contact prescribing physician if questions or concerns Unchanged atenolol (atenolol 25 mg Tab) 0.5 tab By Mouth Every day Contact prescribing physician ifquestions or concerns Unchanged calcium citrate (calcium (as calcium citrate) 200 mg oral tablet) By Mouth 2 times a day Contact prescribing physician if questions or concerns Unchanged escitalopram (escitalopram 10 mg Tab) 1 Tablets By Mouth Every day Contact prescribing physician if questions or concerns Unchanged famotidine (famotidine 40 mg Tab) Contact prescribing physician if questions or concerns Unchanged levothyroxine (levothyroxine 125 mcg (0.125 mg) Tab) Contact prescribing physician if questions or concerns Unchanged pyridoxine (Vitamin B6) Every day Contact prescribing physician if questions or concerns Unchanged rosuvastatin (rosuvastatin 20 mg Tab) Contact prescribing physician if questions or concerns Unchanged zolpidem (zolpidem 5 mg Tab) Contact prescribing physician if questions or concerns Allergies Macrobid (Unknown) NSAIDs (Nausea) atorvastatin (Unknown) ezetimibe (Unknown, Pancreatitis) nonsteroidal anti-inflammatory agents (Unknown) simvastatin (Unknown, Pancreatitis) Problems Ongoing - Any problem that you are currently receiving treatment for. Acquired pes planus Acute infective bronchitis Adrenal adenoma cervical and Lumbar spondylosis Chronic cystitis Colitis Dysphagia Elevated cholesterol Enteritis of small intestine Epigastric pain Fibroid uterus Gastroesophageal reflux Generalized anxiety disorder History of UTI Hypercholesterolemia Hypertensive disorder Hypothyroidism Hypothyroidism Incomplete bladder emptying Irritable bowel syndrome Low back pain Microscopic hematuria Narcolepsy Narcolepsy without cataplexy. 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 Please share your experience with us by completing your survey. We appreciate your feedback and thank you for choosing us for your care. Education Materials Overactive Bladder, Adult Overactive blad (more content not included)...[facility] Reminderson [id number] From: Rachelle Trujillo To: REX Galarza; Sent: 06/27/2025 13:19:17 EDT Show up: 05/27/2026 13:19:00 EDT Subject: 1 yr INÉS Due Date/Time: 06/27/2026 13:19:00 EDT Reminder Message Please Remember to: Please call pt to schedule INÉS for 1 yr appt. Order in 06/27/25 encounter. Thanks!Lali Brandenburg CenterUrology Office/Clinic Noteon [id number] Office/Clinic NoteUrology Office/Clinic Note Chief Complaint 2 month f/u with PVR HPI Staff Pt is a 74 year old female here for a 6 week follow up with PVR previous DX include: uti, incomplete bladder emptying, urge incontinence, adrenal adenoma postinfective urethral stricture in female S/P cysto/UD 11/11/23 *estradiol 0.1 mg cream 3 x a week. Pt was to D/C oxybutynin and start mirabegron 50mg on 05/02/25 PVR (cc): 10/06/23 - 203 11/03/23 - 131 (voided 30 min prior) 03/09/24 - 130 05/02/25 - 174 Pt feels her urination habits have improved with Myrbetriq. Urgency has greatly improved and the leakage is very little compared to before. Nocturia is not an issue for her. Denies any visible blood or dysuria. PVR today is 86ml. States that the Myrbetriq is very costly for her though and she is driving to [place] to pick it up because it was the cheapest place for her. History of Present Illness Tests reviewed: UA I have reviewed the previous health record information and history for this patient from Dr. Galarza. I have reviewed and verified the staff HPI to be accurate for this encounter. Review of Systems PHQ Score Initial Depression Screen Score: 0 SCORE ROS - Provider Constitutional: denies weight loss, denies hot flashes. Eyes: denies eye problems. Gastrointestinal: denies nausea, denies vomiting. Cardiovascular: denies chest pain or angina. Integumentary: no dryness Musculoskeletal: denies musculoskeletal symptoms. ENMT: denies otolaryngeal symptoms. Respiratory: no shortness of breath. Heme/Lymph: denies easy bleeding tendency, denies easy bruising tendency. Psychiatric: no confusion, no anxiety. Genitourinary: See HPI. Physical Exam Vitals & Measurements T: 37 ???C(Temporal Artery) HR: 82(Peripheral) RR: 16 BP: 137/84 HT: 67 in HT: 171 cm WT: 177.692 lb WT: 80.6 kg BMI: 27.56 General Appearance: alert, no distress, well nourished, well developed adult. Assessment/Plan 1. OAB (overactive bladder) (N32.81: Overactive bladder) Stopped oxybutynin and started Myrbetriq 50 mg qd at prior OV. Costing $70/month. Urgency has improved. No longer has to paniagua to the toilet. Has some warning now instead of sudden onset. Estimates 75% improvement. Voices she wonders if medication affects her bowels, feels like she isn't evaluating c ompletely with bowel movements. Was going to recommended increasing to 100mgqd however, pt inquiredabout decreasing Myrbetriq to qod since it is expensive and she has to drive 45 min to get it at the cheapest pharmacy. Do NOT recommended breaking in half though. Follow up 1 yr no labs or sooner if needed. Pt understands and agrees with plan. -Can try Myrbetriq 50 mg qod if she desires -Or can d/c Myrbetriq for a month to see if her bowels improve, do NOT have any other changes at this time 2. Incomplete bladder emptying (R33.9: Retention of urine, unspecified) PVR (cc): 10/06/23 - 203 11/03/23 - 131 (voided 30 min prior) 03/09/24 - 130 05/02/25 - 174 06/27/25 - 86 Weak/squirt stream first morning void Otherwise, stream normal during the day. -Timed, double voids 3. History of UTI (Z87.440: Personal history of urinary (tract) infections) Typical UTI sxs: burning w/urination & frequency. [1] Using Estradiol 0.1 mg cream 3x/week. -Cont Estradiol cream 3x/wk 4. Adrenal adenoma (D35.00: Benign neoplasm of unspecified adrenal gland) CT AP w/wo con 04/23/22 [facility] - Two adjacent L adrenal masses with combined measurements of 2.8 x 1.8x 1.5 cm. Both contain areas of fat density compatible with benign adenomas. Absolute washout: 69% which is highly suggestive of adrenal adenoma. Relative washout: 69% which is highly suggestive of an adrenal adenoma. Left adrenal mass is cystic with a benign adrenal adenoma. INÉS 06/19/23 [facility] - Bilateral adrenal glands not visualized due to overlying bowel gas. Kidneys are unremarkable. CT 07/17/23 - stable appearance of the left adrenal gland w/ a noncontrast Hounsfield unit measurement of -8.4, consistent w/ a benign adrenal adenoma. 5. Postinfective urethral stricture in female (N35.12: Postinfective urethral stricture, not elsewhere classified, female) Cysto/UD 2013. S/p cysto/UD 11/11/[address] Galarza. Dilated to 30Fr. Reports dilation was very painful for her, but subsided after procedure. Pt did take a valium prior to procedure. Does not wish to be awake in future if needs UD, wants anesthesia. [2] Hx of urethral taping by Dr Castro. Suspect UD was very painful secondary to A.V. If pt struggles to void (see #2), may consider repeat UD. -Cont estradiol cream Follow-up With When Contact Information Brooke GALARZA MD, URL [facility] [address], [place] [address]- Additional Instructions: 1 yr no labs Patient Education Overactive Bladder, Adult I, Rachelle Trujillo, personally scribed for Dr. Galarza on 06/27/2025 13:09:59. . Documentation recorded by (more content not included)...[facility] CenterComment on above:Result Comment: Electronically Signed By: Brooke GALARZA MD\.br\Date and Time Signed: 06/27/25 13:23 EDT\.br\Electronically Co-Signed By: Rachelle Trujillo\.br\Date and Time Co-Signed: 06/27/25 13:14 EDT Urology Office/Clinic Noteon [id number] Office/Clinic NoteUrology Office/Clinic Note Chief Complaint 1 year follow up HPI Staff Pt is a 74 year old female here for a 1 year follow up with PVR previous DX include: uti, incomplete bladder emptying, urge incontinence, adrenal adenoma postinfective urethral stricture in female S/P cysto/UD 11/11/23 *estradiol 0.1 mg cream 3 x a week. PCP prescribed oxybutynin 10 mg qd 03/16/25. Wants to discuss the medication. Also has been having urgency that she wants to discuss about. PVR: 174 ml History of Present Illness Tests reviewed: reviewed UA, PVR I have reviewed the previous health record information and history for this patient from Neris Geiger PA-C. I have reviewed and verified the staff HPI to be accurate for this encounter. Review of Systems PHQ Score Initial Depression Screen Score: 0 SCORE ROS - Provider Constitutional: denies weight loss, denies hot flashes. Eyes: denies eye problems. Gastrointestinal: denies nausea, denies vomiting. Cardiovascular: denies chest pain or angina. Integumentary: no dryness Musculoskeletal: denies musculoskeletal symptoms. ENMT: denies otolaryngeal symptoms. Respiratory: no shortness of breath. Heme/Lymph: denies easy bleeding tendency, denies easy bruising tendency. Psychiatric: no confusion, no anxiety. Genitourinary: See HPI. Physical Exam Vitals & Measurements HR: 59(Peripheral) RR: 16 BP: 136/78 General Appearance: alert , no acute distress, well nourished, well developed female. Assessment/Plan 1. Urge incontinence (N39.41: Urge incontinence) Ongoing for yrs. Urgency has worsened over the last few mos. Has to paniagua to the bathroom. PCP rx'd Oxybutynin ER 10 mg, had some improvement initially. Now feels she is back to prior sxs. Experienced SE of dry mouth.Also educated pt on risk of UR with Oxybutynin. Recommended pt to stop this med and trial beta-3 agonist. Possible SEs discussed. Discussed poor insurance coverage and recommended Goodrx if cost prohibitive with insurance. Pt shares she has mildly high BP but follows with PCP for this. Educated pt on importance of close BP monitoring. -D/c Oxybutynin -Start Mirabegron ER 50 mg qd. Rx sent to [facility]. Goodrx coupon provided. 2. Incomplete bladder emptying (R33.9: Retention of urine, unspecified) PVR (cc): 10/06/23 - 203 11/03/23 - 131 (voided 30 min prior) 03/09/24 - 130 05/02/25 - 174 Feels she empties. Advised pt she is retaining urine. Not a candidate for anticholinergics. Advisedpt to lean forward, press on the bladder, and to double void to help empty completely. -Timed, double voids -F/u in 2-3 mos w/ PVR 3. History of UTI (Z87.440: Personal history of urinary (tract) infections) Typical UTI sxs: burning w/urination & frequency. Wipes front to back. Using estradiol vaginal cream 3x/week. Plunges 0.75gm vaginally and rubs excess to urethra. UA today shows trace-lysed blood and moderate leuks. Asx. -Cont Estradiol cream 3x/wk. 4. Adrenal adenoma (D35.00: Benign neoplasm of unspecified adrenal gland) CT AP w/wo con 04/23/22 [facility] - Two adjacent L adrenal masses with combined measurements of 2.8 x 1.8x 1.5 cm. Both contain areas of fat density compatible with benign adenomas. Absolute washout: 69% which is highly suggestive of adrenal adenoma. Relative washout: 69% which is highly suggestive of an adrenal adenoma. Left adrenal mass is cystic with a benign adrenal adenoma. INÉS 06/19/23 [facility] - Bilateral adrenal glands not visualized due to overlying bowel gas. Kidneys are unremarkable. [1] CT 07/17/23 - stable appearance of the left adrenal gland w/ a noncontrast Hounsfield unit measurement of -8.4, consistent w/ a benign adrenal adenoma. [2] 5. Postinfective urethral stricture in female (N35.12: Postinfective urethral stricture, not elsewhere classified, female) Cysto/UD 2013. S/p cysto/UD 11/11/[address] Galarza. Dilated to 30Fr. Reports dilation was very painful for her, but subsided after procedure. Pt did take a valium prior to procedure. Does not wish to be awake in future if needs UD, wants anesthesia. [3] Follow-up With When Contact Information GEOVANNI PATRICIO, Brooke Renae, URL [address] [place] [address] [place] [address] Additional Instructions: 2-3 mos w/ PVR Patient Education Urinary Incontinence I, Zoya Berman, personally scribed for Dr. Galarza on 05/02/2025 13:16:58. . Documentation recorded by the scribe, Zoya Berman, accurately reflects the services(s) I performed and decisions made by me. Authenticated by Dr. Galarza on 05/02/2025 13:20:22. 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 Risks include but are not limited to bleeding, infection, scarring, pain, and nerve damage. An opportunity to ask questions prior to the procedure was permitted and all questions were answered. Patient was prepped and draped in usual sterile fashion: area cleansed with alcohol. Anesthesia: the lesion was anesthetized in a standard fashion Anesthetic: 1% lidocaine w/ epinephrine 1-100,000 buffered w/ 8.4% NaHCO3 Instrument used: DermaBlade Hemostasis achieved with: electrodesiccation Outcome: patient tolerated procedure well Outcome comment: The specimen was placed in a prelabeled formalin container to be sent for pathology Post-procedure details: sterile dressing applied and wound care instructions given Post-procedure details comment: Emphasized need to contact clinic for any signs of infection, uncontrollable bleeding, or complications. Dressing type: bandage Additional details: Photo taken yes Amount of lidocaine used: 0.[address] [facility] Estimated glomerular filtration rate (GFR) non- Americanon 10-13-2024 GFR/1.73 sq M.predicted among non-blacks MDRD (S/P/Bld) [Vol rate/Area]Estimated glomerular filtration rate (GFR) non->=60 mL/min/1.73m 2 [facility] EastGlobulin Calc (S) [Mass/Vol]on 10-13-2024 Globulin (S) [Mass/Vol]Serum globulin measurement by calculation (mass/volume) [facility] EastLaboratory - Chemistry and Chemistry - challengeon 63-09-3070Ymfkzau [Mass/Vol]3.7 g/dL3.4-5.0[facility] EastALP [Catalytic activity/Vol]61 U/A38-861JpjvfrdflRegency Hospital Cleveland EastALT [Catalytic activity/Vol]39 U/W96-43OuwnvntwoRegency Hospital [facility] East Amylase [Catalytic activity/Vol]45 U/O05-274FzdcpeogcRegency Hospital Cleveland EastAST [Catalytic activity/Vol]25 U/I11-77CppgjkpxxRegency Hospital Cleveland EastBilirubin [Mass/Vol]0.6 mg/dL0.2-1.0[facility] EastCalcium [Mass/Vol]9.3 mg/dL8.5-10.1FBrecksville VA / Crille HospitalChloride [Moles/Vol]103 mmol/L 98-107[facility] EastCO2 [Moles/Vol]31.7 mmol/L21.0-32.0 [facility] EastCreatinine [Mass/Vol]0.76 mg/dL0.55-1.02 [facility] EastGFR/1.73 sq M.predicted MDRD (S/P/Bld) [Vol rate/Area]mL/min/{1.73_m2}>=60 mL/min/1.73m 2FBrecksville VA / [facility]ille Hospital Glucose [Mass/Vol]109 mg/cAGycg41-022BjzuqpdslRegency Hospital Cleveland EastLipase [Catalytic activity/Vol]29.0 U/L16.0-77.0[facility] Potassium [Moles/Vol]4.0 mmol/L3.5-5.1FBrecksville VA / Crille HospitalProtein [Mass/Vol]6.9 g/dL6.4-8.2FSumma Health Akron Campusodium [Moles/Vol]140 mmol/U783-211QhuxndalcRegency Hospital Cleveland EastUrea nitrogen [Mass/Vol]11.0 mg/dL 7.0-18.0[facility] EastUrea nitrogen/Creatinine [Mass ratio] 14.5 mg/mgBlanchard Valley Health Systemerum or plasma albumin/globulin mass ratioon 19-48-1713Nrsmkli/Globulin [Mass ratio]Serum or plasma albumin/globulin mass ratioBlanchard Valley Health Systemerum or plasma anion gap determinationon 44-65-2580Lbqxo gap [Moles/Vol]Serum or plasma anion gap determinationRegency Hospital Cleveland EastAutomated basophil %Ordered By: Wilmer Beckham on 43-76-4707Zqsagmrss/100 WBC (Bld)0.5 %Normal.[facility] EastComment on above:Performed By: #### CBC, BMP #### [place] [address] USAAutomated basophil countOrdered By: Wilmer Beckham on 80-00-8486Saedskahf (Bld) [#/Vol]0.0 10*3/uLNormal0.0-0.2FBrecksville VA / Crille HospitalComment on above:Result Comment: PERFORMED BY: [place] [address] PATHOLOGIST ITEM PROCESSING CLERK LIZBETH ESCOBAR M.D.Performed By: #### CBC, BMP #### [place] [address] USAAutomated blood monocyte countOrdered By: Wilmer Beckham on 51-47-8245Sdtdgufhr (Bld) [#/Vol]0.6 10*3/uLNormal0.0-0.8[facility] EastComment on above:Performed By: #### CBC, BMP #### [place] [address] USAAutomated eosinophil %Ordered By: Wilmer Beckham on 74-08-6152Sjwkojebowi/100 WBC (Bld)2.7 %Normal.[facility] Comment on above:Performed By: #### CBC, BMP #### [place] [address] USAAutomated eosinophil countOrdered By: Wilmer Beckham on 11-06-6181Awofpjhbqyx (Bld) [#/Vol]0.2 10*3/uLNormal0.0-0.45[facility] EastComment on above:Performed By: #### CBC, BMP #### [place] [address] USAAutomated monocyte %Ordered By: Wilmer Beckham on 02-26-2024 Monocytes/100 WBC (Bld)9.1 %Normal.[facility] EastComment on above:Performed By: #### CBC, BMP #### [facility] [address] [id number] USAAutomated neutrophil %Ordered By: Wilmer Beckham on 00-91-5344Cemmfaklfmq/100 WBC (Bld)58.6 %Normal.[facility] EastComment on above:Performed By: #### CBC, BMP #### [facility] [address] [place] [address] USABasic Metabolic Panelon 44-60-7054Zwtyjkafcc Clr Calc Jlslmosq33.23NoFormerly [facility], later [facility]re Physician GroupComment on above:Result Comment: PERFORMED BY: [place] [address] PATHOLOGIST ITEM PROCESSING CLERK LIZBETH ESCOBAR M.D.Performed By: #### CBC, BMP #### [place] [address] USAGFR/1.73 sq M.predicted MDRD (S/P/Bld) [Vol rate/Area] mL/min/{1.73_m2}NormalThe [facility] Physician GroupComment on above:Performed By: #### CBC, BMP #### [place] [address] USACalcium [Mass/volume] in Serum or PlasmaOrdered By: Wilmer Beckham on 81-27-0223Swdouoc [Mass/Vol]9.5 mg/dLNormal8.6-10.3FBrecksville VA / Crille HospitalComment on above:Performed By: #### CBC, BMP #### [place] [address] USACarbon dioxide, total [Moles/volume] in Serum or Plasma Ordered By: Wilmer Beckham on 12-64-3824DW3 [Moles/Vol]27.6 mmol/MJbxzxa47.0-31.0 [facility] EastComment on above:Performed By: #### CBC, BMP #### [facility] [address] [place] [address] USAChloride [Moles/volume] in Serum or PlasmaOrdered By: Wilmer Beckham on 09-76-4254Iyuqponz [Moles/Vol]107 mmol/NNszalb07-259MqponaacuRegency Hospital Cleveland EastComment on above:Performed By: #### CBC, BMP #### [facility] [address] [place] [address] USAComplete Blood Count Auto Diffon 11-89-4121Vppb Corpuscular HGB Conc33.3 g/sAOigjpm29.0-35.0The [facility] Physician GroupComment on above:Performed By: #### CBC, BMP #### [place] [address] USANRBC%0.1 /100{WBC}Normal0-0.5[facility] Comment on above:Performed By: #### CBC, BMP #### [place] [address] USACreatinine [Mass/volume] in Serum or PlasmaOrdered By: Wilmer Beckham on 80-93-7137Anziprzqfx [Mass/Vol]0.68 mg/dLNormal0.60-1.20[facility] EastComment on above:Performed By: #### CBC, BMP #### [place] [address] USAECG 12 lead ECGon 86-49-7966GTT 12 lead ECGST[facility] [place] [address] [place] [address] Electrocardiograph Report Signed Patient: Merissa Love I MR#: [id number] 4000 : 1950 Acct:[id number] Age/Sex: 73 / F ADM Date: 02/26/24 Loc: [place] Room: Type: [facility] Attending Dr: Marco Castro DO Ordering Provider: Wilmer Beckham MD Date of Service: 02/26/24 ECG/ECG 12 lead ECG: preop Copies to: Test Reason : Blood Pressure : / mmHG Vent. Rate : 055 BPM Atrial Rate : 055 BPM P-R Int : 184 ms QRS Dur : 080 ms QT Int : 438 ms P-R-T Axes : 057 034 066 degrees QTc Int : 419 ms Sinus bradycardia Otherwise normal ECG When compared with ECG of 04-SEP-2020 13:36, No significant change was found Confirmed by Brett Blackburn ([id number]) on 02/26/2024 10:28:40 AM Referred By: Electronically Signed By:Brett Blackburn Transcribed By: MUS Signed By Brett Blackburn MD 02/26/[address] [place] [address] Physician GroupErythrocyte distribution width [Ratio] by Automated countOrdered By: Wilmer Beckham on 86-08-3354Ummlcwfyqpu distribution width (RBC) [Ratio]14.1 %Gfgvgk12.9-15.3FBrecksville VA / Crille HospitalComment on above:Performed By: #### CBC, BMP #### [place] [address] USAErythrocytes [#/volume] in Blood by Automated countOrdered By: Wilmer Beckham on 35-24-1255VVO (Bld) [#/Vol]3.94 10*6/uLNormal3.60-5.00 [facility] EastComment on above:Performed By: #### CBC, BMP #### [place] [id number] USAGlucose [Mass/volume] in Serum or PlasmaOrdered By: Wilmer Beckham on 96-93-0806Gdavdmr [Mass/Vol]119 mg/tTMxcg78-768KoqarflbwRegency Hospital Cleveland EastComment on above:ADA recommended reference rangeRandom Glucose Reference Range is dependent on time and content of last meal. Glucose of more than 200 mg/dL in a nonstressed, ambulatory subject supports the diagnosisof Diabetes Mellitus.Result Comment: Random Glucose Reference Range is dependent on time and content of last meal. Glucose of more than 200 mg/dL in a nonstressed, ambulatory subject supports the diagnosis of Diabetes Mellitus. ADA recommended reference rangePerformed By: #### CBC, BMP #### [place] [id number] USAHematocrit [Volume Fraction] of Blood by Automated count Ordered By: Wilmer Beckham on 61-10-4318Yqluyjefsc (Bld) [Volume fraction]36.5 % Anjsgd93.0-46.4FBrecksville VA / Crille HospitalComment on above:Performed By: #### CBC, BMP #### [facility] [address] [place] [address] USAHemoglobin [Mass/volume] in BloodOrdered By: Wilmer Beckham on 58-63-2352Lumkyjvhaf (Bld) [Mass/Vol]12.2 g/tRBpvqit38.8-15.4FBrecksville VA / Crille HospitalComment on above:Performed By: #### CBC, BMP #### [facility] [address] [place] [id number] USALon 63-69-2365WAvzhqcwx: [id number] Received: 02/26/24 Status: KELLY Rivera Num: [id number] Spec Type: Surgical Subm Dr: Marco Castro DO Tissues: A Endocervix - Curettings (ECC) Procedures: HE/2, Gross/Micro L4 Age/ Patient Sex Location Account Attending Physician Merissa Love I 73/F [place] [id number] Marco Castro DO SPEC NUM: [id number] RECD: 02/26/24 STATUS: LORINLizy RIVERA NUM: [id number] SINDY: 02/26/24- SUBM DR: Marco Castro DO ENTERED: 02/26/[address] [facility] [address]: SPEC TYPE: Surgical DEPT: S ORDERED: HE/2, Gross/Micro L4 ORDERED: HE/2, Gross/Micro L4 Pathological Diagnosis Endocervical curettings: -A few small strips of squamous epithelial elements, and at least some small admixed endocervical glandular structures, otherwise without obvious dysplasia or glandular atypia identified in the examination Clinical Information Atypical glandular cells Gross Description Specimen is labeled endocervical curettings. It consists of an aggregate of kinney mucoid soft tissue 1.5 x 1 x 0.2 cm. All in [address] CPT Codes 82176 Specimen: [id number] Received: 02/26/24 Status: KELLY Marcellus Num: [id number] Spec Type: Surgical Subm Dr: Marco Castro DO Tissues: A Endocervix - Curettings (ECC) Procedures: Stone LEHMAN/Pierce L4 Patient: Merissa Love I [id number] (Continued) Signed (signature on file) Zak Simon MD 02/28/[address] [place] [address] Physician GroupLeukocytes [#/volume] corrected for nucleated erythrocytes in Blood by Automated counOrdered By: Wilmer Beckham on 25-16-0397MET corrected for nucl RBC Auto (Bld) [#/Vol]6.5 10*3/uL3.8-11.6 [facility] EastLeukocytes [#/volume] in Blood by Automated countOrdered By: Wilmer Beckham on 41-08-6141WZY (Bld) [#/Vol]6.5 10*3/uLNormal 3.8-11.6FBrecksville VA / Crille HospitalComment on above:Performed By: #### CBC, BMP #### [facility] [address] [place] [address] USALymphocytes [#/volume] in Blood by Automated countOrdered By: Wilmer Beckham on 16-13-3204Zahguhagqeb (Bld) [#/Vol]1.9 10*3/uLNormal1.00-4.8 [facility] EastComment on above:Performed By: #### CBC, BMP #### [facility] [address] [place] [address] USALymphocytes/100 leukocytes in Blood by Automated count Ordered By: Wilmer Beckham on 94-86-1288Dyrxqipexbd/100 WBC (Bld)29.1 %Normal. [facility] EastComment on above:Performed By: #### CBC, BMP #### [address] [Entitic mass] by Automated countOrdered By: Wilmer Beckham on 88-69-9488RZK (RBC) [Entitic mass]30.9 jvHvwwgd06.7-34.3FBrecksville VA / Crille HospitalComment on above:Performed By: #### CBC, BMP #### [facility] [address] [place] [address] Auto (RBC) [Mass/Vol]Ordered By: Wilmer Beckham on 53-81-3260PZGA (RBC) [Mass/Vol]33.3 g/dL32.0-35.0[facility] HospitalV [Entitic volume] by Automated countOrdered By: Wilmer Beckham on 47-56-2887URD (RBC) [Entitic vol]92.6 qWOqzyml55-053XzhyeauvhRegency Hospital Cleveland EastComment on above:Performed By: #### CBC, BMP #### [facility] [address] [place] [address] USANeutrophils [#/volume] in Blood by Automated countOrdered By: Wilmer Beckham on 40-47-8625Elhbhmvrudm (Bld) [#/Vol]3.8 10*3/uLNormal1.8-7.7 [facility] EastComment on above:Performed By: #### CBC, BMP #### [facility] [address] [place] [address] USANo Panel InformationOrdered By: Wilmer Beckham on 02-26-2024 Estimated GFR (CKD-EPI)> 60.0 mL/MinRegency Hospital Cleveland EastPharmacy Creatinine Clearance (Chem64.23[facility] Cleveland EastNucleated erythrocytes [Presence] in Blood by Automated countOrdered By: Wilmer Beckham on 21-43-1015Qlcuijzut RBC Auto Ql (Bld)0.1 /100{WBC}0-0.5FBrecksville VA / Crille HospitalPlatelet mean volume [Entitic volume] in Blood by Automated count Ordered By: Wilmer Beckham on 57-81-4589Cmdcipmw mean volume (Bld) [Entitic vol]8.1 fLNormal6.3-10.7FBrecksville VA / Crille HospitalComment on above:Performed By: #### CBC, BMP #### [facility] [address] [place] [address] USAPlatelets [#/volume] in Blood by Automated countOrdered By: Wilmer Beckham on 36-94-1251Ngimyeyeo (Bld) [#/Vol]249 10*3/tNMhepqj512-652 [facility] EastComment on above:Performed By: #### CBC, BMP #### [facility] [address] [place] [address] USAPotassium [Moles/volume] in Serum or PlasmaOrdered By: Wilmer Beckham on 30-05-4537Azgcwhijf [Moles/Vol]3.9 mmol/LNormal3.5-5.1FBrecksville VA / Crille HospitalComment on above:Performed By: #### CBC, BMP #### [facility] [address] [place] [address] USASerum or plasma anion gap determinationOrdered By: Wilmer Beckham on 32-60-0495Gruki gap [Moles/Vol]9.3 mmol/LNormal6.0-15.0[facility] EastComment on above:Performed By: #### CBC, BMP #### [facility] [address] [place] [address] USASodium [Moles/volume] in Serum or PlasmaOrdered By: Wilmer Beckham on 25-72-9903Dasfuj [Moles/Vol]140 mmol/XNriktf012-354LrfuscexrRegency Hospital Cleveland EastComment on above:Performed By: #### CBC, BMP #### [facility] [address] [place] [address] USAUrea nitrogen [Mass/volume] in Serum or PlasmaOrdered By: Wilmer Beckham on 30-48-8873Zmei nitrogen [Mass/Vol]16 mg/dLNormal7-25[facility] EastComment on above:Performed By: #### CBC, BMP #### [facility] [address] [place] [address] USAUrinalysis - DIPSTICKon 06-56-1793Hujzeaadmm (U)[employer] Other Bilirubin Ql (U)[employer] Other Color (U)[employer] Other Glucose Ql (U)[employer] Other Hemoglobin Ql (U)[employer] Other Ketones Ql (U)[employer] Other Leukocyte esterase Test strip Ql (U)[employer] Other Nitrite Ql (U)[employer] Other pH (U)6.0 [pH][facility] [employer] Other Protein Ql (U)NegativeNofreeman cancer institute [employer] Other Specific gravity (U) [Rel density]1.005[facility] [employer] Other Urobilinogen (U) [Mass/Vol]0.2 mg/dLFrisco [employer] Other Urinalysis - DIPSTICKNofreeman cancer institute [employer] Other Lon 06-25-2023 Specimen: [id number] Received: 06/26/23 Status: KELLY Marcellus Num: [id number] Spec Type: Surgical Subm Dr: Marco Castro DO Tissues: A Endocervix - Curettings (ECC) Procedures: Stone LEHMAN/Pierce L4 Age/ Patient Sex Location Account Attending Physician Merissa Love I 72/F KEN [id number] Marco Castro DO SPEC NUM: [id number] RECD: 06/26/23 STATUS: KELLY RIVERA NUM: [id number] SINDY: 06/25/23- SUBM DR: Marco Castro DO ENTERED: 06/26/[address] [facility] [address]: SPEC TYPE: Surgical DEPT: S ORDERED: HE/2, Gross/Micro L4 ORDERED: HE/2, Gross/Micro L4 Pathological Diagnosis Endocervical curettings: - Mucus and blood with some admixed portions of endocervical and ectocervical epithelial elements, and with small focal moderate chronic inflammation in 1 small mucosal piece, in addition to rare multinucleated-like change of epithelial nuclei, and occasional mild nonspecific crushed atypia, otherwise without malignancy, any high-grade dysplasia, or any distinct epithelial atypia identifiable Clinical Information DEZ Gross Description Received in formalin labeled with the patient's name, date of and ECC/CC is a 2.5 x 0.7 x 0.2 cm aggregate of kinney-red soft tissue and mucus. Entirely submitted in one cassette labeled A1. Microscopic Description Two H E slides reviewed. The microscopic examination confirms the diagnosis. Specimen: [id number] Received: 06/26/23 Status: KELLY Rivera Num: [id number] Spec Type: Surgical Subm Dr: Marco Castro DO Tissues: A Endocervix - Curettings (ECC) Procedures: Jen LEHMAN L4 Patient: Merissa Love I [id number] (Continued) Specimen: [id number] Received: 06/26/23 (Continued) Signed (signature on file) Zak Simon MD 06/27/231910 Specimen: [id number] Received: 06/26/23 Status: KELLY Rivera Num: [id number] Spec Type: Surgical Subm Dr: Marco Castro DO Tissues: A Endocervix - Curettings (ECC) Procedures: Stone LEHMAN/Pierce L4 Patient: Giancarlo Loveclaudia Felipe [id number] (Continued) Specimen: [id number] Received: 06/26/23 (Continued) CPT Codes 16876 Specimen: [id number] Received: 06/26/23 Status: KELLY Rivera Num: [id number] Spec Type: Surgical Subm Dr: Marco Castro DO Tissues: A Endocervix - Curettings (ECC) Procedures: HE/2, Gross/Micro L4 Patient: Merissa Love I [id number] (Continued) Signed (signature on file) Chin-Shola Simon MD 06/27/[address] [place] [address] Physician GroupCBC AUTO DIFFon 07-52-1884VHIP #0.0 103/ulNormal0.0-0.1Henry County HospitalComment on above:Performed By: #### CBC #### [facility] [address] [place] [address] [address] Preethi SimonBasophils/100 WBC (Bld)0.4 %Normal0.2-2.0[facility] Comment on above:Performed By: #### CBC #### [facility] [address] [place] [address] [address] Preethi Dickinson #0.2 103/ulNormal0.0-0.7The Genesis HospitalComment on above: Performed By: #### CBC #### [facility] [address] [place] [address] [address] Preethi Howardosinophils/100 WBC (Bld)1.8 %Normal0.9-7.0[facility] Comment on above:Performed By: #### CBC #### [facility] [address] [place] [address] [address] Preethi Howardrythrocyte distribution width (RBC) [Ratio]14.6 %Oihvne33.0-15.0 [facility] HospitalComment on above:Performed By: #### CBC #### [facility] [address] [place] [address] Dr. Preethi SimonHematocrit (Bld) [Volume fraction]39.6 %Mxfums54.0-48.0The Genesis HospitalComment on above:Performed By: #### CBC #### [facility] [address] [place] [address] Dr. Preethi SimonHemoglobin (Bld) [Mass/Vol]12.7 g/vXRruoge75.0-16.0The Genesis HospitalComment on above:Performed By: #### CBC #### [facility] [address] [place] [address] Dr. Preethi Choudhary #0.05 10e3/ulCritically high0.00-0.03The [facility] Comment on above:Performed By: #### CBC #### [facility] [address] [place] [address] Dr. Preethi Choudhary %0.5 %Normal0.0-0.5The [facility] HospitalComment on above: Performed By: #### CBC #### [facility] [address] [place] [address] Dr. Preethi Kruger #1.8 103/ulNormal1.2-3.8The [facility] HospitalComment on above:Performed By: #### CBC #### [facility] [address] [place] [address] Dr. Preethi Melgarhocytes/100 WBC (Bld)15.8 %Critically low20.5-60.0The [facility] HospitalComment on above:Performed By: #### CBC #### [facility] [address] [place] [address] Dr. Preethi Bain DIFF REQNONormalThe Genesis HospitalComment on above: Performed By: #### CBC #### [facility] [address] [place] [address] Dr. Preethi Iglesias (RBC) [Entitic mass]29.8 skOzkhnt25.7-34.0The [facility] HospitalComment on above:Performed By: #### CBC #### [facility] [address] [place] [address] Dr. Preethi Aguirre (RBC) [Mass/Vol]32.1 g/rWHybild50.9-35.2The [facility] HospitalComment on above:Performed By: #### CBC #### [facility] [address] [place] [address] Dr. Preethi Zee (RBC) [Entitic vol]93.0 hDIpgcgp74.0-99.0The [facility] HospitalComment on above:Performed By: #### CBC #### [facility] [address] [place] [address] Dr. Preethi Rust #0.6 103/ulNormal0.3-0.8The [facility] HospitalComment on above:Performed By: #### CBC #### [facility] [address] [place] [address] Dr. Preethi Samuelocytes/100 WBC (Bld)5.5 %Normal1.7-12.0[facility] Comment on above:Performed By: #### CBC #### [facility] [address] [place] [address] Dr. Preethi Cueto #8.5 103/ulCritically high1.4-6.5[facility] Comment on above:Performed By: #### CBC #### [facility] [address] [place] [address] Dr. Preethi Mathiasutrophils/100 WBC (Bld)76.0 %Critically high43.0-75.0The Genesis HospitalComment on above:Performed By: #### CBC #### [facility] [address] [place] [address] Dr. Preethi Bucklet mean volume (Bld) [Entitic vol]9.0 fLCritically low 9.5-13.5The [facility] HospitalComment on above:Performed By: #### CBC #### [facility] [address] [place] [address] Dr. Preethi HanT302 103/xzPrrojh895-320Waw Genesis HospitalComment on above: Performed By: #### CBC #### [facility] [address] [place] [address] Dr. Preethi SimonRBC4.26 106/ulNormal4.20-5.40The [facility] HospitalComment on above:Performed By: #### CBC #### [facility] [address] [place], [place] [address] Dr. Preethi SimonWBC11.1 103/ulCritically high4.0-11.0The Genesis HospitalComment on above:Performed By: #### CBC #### [facility] [address] [place], [place] [address] Dr. Preethi SimonCT ABD/PELV W CONon 18-51-4253BC ABD/PELV W CONEXAMINATION: CT ABD/PELV W CON HISTORY: ABDOMINAL DISTENSION (GASEOUS) COMPARISON: CT abdomen/pelvis dated 01/26/2023. TECHNIQUE: Routine CT abdomen/pelvis with intravenous and oral contrast. Dose reduction techniques were achieved by using automated exposure control and/or adjustment of mA and/or kV according to patient size and/or use of iterative reconstruction technique. FINDINGS: There is a small hiatal hernia. Cholecystectomy. The biliary tree is mildly dilated and more prominent compared to the previous examination with the common duct measuring 1.1 cm. There are no calcified gallstones. The liver appears fatty infiltrated. The pancreas and spleen are unremarkable. The right adrenal gland is normal. There are stable left adrenal nodules, largest measuring 2.7 cm (60 Hounsfield units). The bilateral kidneys are unremarkable. There is a very large amount of stool within the colon. There are a few diverticula along the proximal sigmoid colon without diverticulitis. The appendix is unremarkable. There is a small hiatal hernia. The stomach is otherwise unremarkable. The small bowel is normal caliber. The bowel gas pattern is nonobstructive. There is atheromatous plaque which is predominantly calcified along the abdominal aorta. There are atheromatous calcifications within the iliac and common femoral arteries bilaterally. There is atheromatous calcification at the origin of the left main renal artery. There is no free air or free fluid. There is no inflammatory reaction. There are no pathologically enlarged lymph nodes within the abdomen/pelvis. The urinary bladder is severely dilated however otherwise unremarkable. There are numerous calcified fibroids within the uterus. The bony structures are osteopenic. There are multilevel degenerative changes along the spine. IMPRESSION: Nonobstructive bowel gas pattern. There is a very large amount of stool within the colon which can be associated with constipation. There are a few diverticula along the proximal sigmoid colon without diverticulitis. There is a small hiatal hernia. Cholecystectomy. The intrahepatic and extrahepatic biliary tree is more prominent with the common duct measuring 1.1 cm in transverse dimension. Stable left adrenal nodules, largest measuring 2.7 cm (60 Hounsfield units). The urinary bladder is severely dilated however otherwise unremarkable. The patient should urinate. Numerous calcified uterine fibroids. Electronically authenticated by: JOSH MUNOZ Date: 2023-02-11 08:08[address] HospitalLACTATE/LACTIC ACIDon 01-13-3981Cdcpnna [Moles/Vol]0.7 mmol/L Normal0.4-2.0The [facility] Hospitalment on above:Performed By: #### AME MELGOZA #### [facility] [address] [place] [address] Dr. Preethi Celeste 14(COMP METB)on 78-19-4929Eneyzxg [Mass/Vol]3.6 g/dLNormal 3.4-5.0The [facility] Hospitalment on above:Performed By: #### CMP #### [facility] [address] [place] [address] Dr. Preethi SimonAlbumin/Globulin [Mass ratio]1.1 {ratio}NormalThe [facility] on above:Performed By: #### CMP #### [facility] [address] [place] [address] Dr. Preethi Reyes [Catalytic activity/Vol]73 U/ITgjoqk53-867Ypq [facility] on above:Performed By: #### CMP #### [facility] [address] [place] [address] Dr. Preethi Urrutia [Catalytic activity/Vol]42 U/NRbefck46-60Lot [facility] on above:Performed By: #### CMP #### [facility] [address] [place] [address] Dr. Preethi Richey gap [Moles/Vol]8.4 mmol/LNormalThe [facility] Hospitalment on above:Performed By: #### CMP #### [facility] [address] [address] [address] Preethi SimonAST [Catalytic activity/Vol]28 U/DCcxyad08-47Lzg [facility] HospitalComment on above:Performed By: #### CMP #### [facility] [address] [address] [address] Preethi SimonBilirubin [Mass/Vol]0.5 mg/dLNormal0.2-1.0[facility] Comment on above:Performed By: #### CMP #### [facility] [address] [address] [address] Preethi SimonCalcium [Mass/Vol]9.1 mg/dLNormal8.5-10.1[facility] Comment on above:Performed By: #### CMP #### [facility] [address] [place] [address] Dr. Preethi SimonChloride [Moles/Vol]99 mmol/NLbagko21-780Jii [facility] Comment on above:Performed By: #### CMP #### [facility] [address] [place] [address] [address] Preethi SimonCO2 [Moles/Vol]32.5 mmol/LCritically high21.0-32.0The [facility] HospitalComment on above:Performed By: #### CMP #### [facility] [address] [place] [address] Dr. Preethi SimonCreatinine [Mass/Vol]0.73 mg/dLNormal0.55-1.02The [facility] HospitalComment on above:Performed By: #### CMP #### [facility] [address] [place] [address] [address] Preethi HowardGFR-AF COOK ISLANDER>60Normal>=60The [facility] HospitalComment on above:Performed By: #### CMP #### [facility] [address] [place] [address] [address] Preethi HowardGFR-NON AF COOK ISLANDER>60Normal>=60The [facility] HospitalComment on above:Performed By: #### CMP #### [facility] [address] [place] [address] [address] Preethi SimonGlobulin (S) [Mass/Vol]3.4 g/dLNormGerman HospitalComment on above:Performed By: #### CMP #### [facility] [address] [place] [address] [address] Preethi SimonGlucose [Mass/Vol]109 mg/dLCritically dyjd26-712Tvw [facility] HospitalComment on above:Performed By: #### CMP #### [facility] [address] [place] [address] [address] Preethi SimonPotassium [Moles/Vol]3.9 mmol/LNormal3.5-5.1The [facility] Comment on above:Performed By: #### CMP #### [facility] [address] [place] [address] [address] Preethi SimonProtein [Mass/Vol]7.0 g/dLNormal6.4-8.2The [facility] Comment on above:Performed By: #### CMP #### [facility] [address] [place] [address] [address] Preethi SimonSodium [Moles/Vol]136 mmol/FHpspao119-123Tzv [facility] Comment on above:Performed By: #### CMP #### [facility] [address] [place] [address] [address] Preethi SimonUrea nitrogen [Mass/Vol]14.0 mg/dLNormal7.0-18.0[facility] HospitalComment on above:Performed By: #### CMP #### [facility] [address] [place] [address] [address] Preethi SimonUrea nitrogen/Creatinine [Mass ratio]19.2 mg/mgNormalThSumma HealthComment on above:Performed By: #### CMP #### [facility] [address] [place] [address] [address] Preethi SimonXR ABD FLAT UP_PA Jammie 04-95-0106JF ABD FLAT UP_PA CHEXAMINATION: XR ABD FLAT UP_PA CH HISTORY: CONSTIPATION, UNSPECIFIED COMPARISON: No relevant comparison available. FINDINGS: LUNGS: No infiltrate, pneumothorax, or pleural effusion. MEDIASTINUM: No abnormal widening. BOWEL GAS PATTERN: Mildly distended small bowel within left abdomen with multiple fluid levels. Large amount stool within proximal colon. FREE AIR: None. CALCIFICATIONS: Large dense calcification within pelvis likely within the uterine leiomyoma. BONES: No fracture or visible bone lesion. OTHER: Negative. IMPRESSION: 1. No acute cardiopulmonary process. 2. Partial bowel obstruction versus ileus. Electronically authenticated by: JAKE DILLON Date: 2023-02-11 05:30NormalThTrinity Health [facility] AUTO DIFFon 54-16-3546RKLR #0.0 103/ulNormal0.0-0.1[facility] HospitalComment on above:Performed By: #### LIPID, BMP, ALT, TSH #### [facility] [address] [place] [address] Dr. Preethi SimonBasophils/100 WBC (Bld)0.2 %Normal0.2-2.0[facility] Comment on above:Performed By: #### LIPID, BMP, ALT, TSH #### [facility] [address] [address] [address] Preethi Dickinson #0.2 103/ulNormal0.0-0.7The [facility] HospitalComment on above: Performed By: #### LIPID, BMP, ALT, TSH #### [facility] [address] [address] [address] Preethi Howardosinophils/100 WBC (Bld)1.9 %Normal0.9-7.0[facility] Comment on above:Performed By: #### LIPID, BMP, ALT, TSH #### [facility] [address] [address] [address] Preethi Howardrythrocyte distribution width (RBC) [Ratio]13.8 %Ikejrz53.0-15.0 The Genesis HospitalComment on above:Performed By: #### LIPID, BMP, ALT, TSH #### [facility] Laboratory [address] [place] [address] Dr. Preethi SimonHematocrit (Bld) [Volume fraction]38.5 %Uucbfd26.0-48.0The Genesis HospitalComment on above:Performed By: #### LIPID, BMP, ALT, TSH #### [facility] [address] [place] [address] Dr. Preethi SimonHemoglobin (Bld) [Mass/Vol]13.1 g/rMVgcxwd35.0-16.0The Genesis HospitalComment on above:Performed By: #### LIPID, BMP, ALT, TSH #### [facility] [address] [place] [address] Dr. Preethi Choudhary #0.02 10e3/ulNormal0.00-0.03The [facility] Hospitalment on above:Performed By: #### LIPID, BMP, ALT, TSH #### [facility] [address] [place] [address] Dr. Preethi Choudhary %0.2 %Normal0.0-0.5The [facility] HospitalComment on above: Performed By: #### LIPID, BMP, ALT, TSH #### [facility] [address] [place] [address] Dr. Preethi Kruger #2.4 103/ulNormal1.2-3.8The [facility] HospitalComment on above:Performed By: #### LIPID, BMP, ALT, TSH #### [facility] [address] [place] [address] Dr. Preethi Melgarhocytes/100 WBC (Bld)29.0 %Mzbiss32.5-60.0The [facility] HospitalComment on above:Performed By: #### LIPID, BMP, ALT, TSH #### [facility] [address] [place] [address] Dr. Preethi CabreraUAL DIFF REQNONormalThe Genesis HospitalComment on above: Performed By: #### LIPID, BMP, ALT, TSH #### [facility] [address] [place] [address] Dr. Preethi Iglesias (RBC) [Entitic mass]30.2 unSeulsf06.7-34.0The [facility] HospitalComment on above:Performed By: #### LIPID, BMP, ALT, TSH #### [facility] [address] [place] [address] Dr. Preethi Aguirre (RBC) [Mass/Vol]34.0 g/pSJzaxvw30.9-35.2The [facility] HospitalComment on above:Performed By: #### LIPID, BMP, ALT, TSH #### [facility] [address] [place] [address] Dr. Preethi Aguirre (RBC) [Entitic vol]88.7 xQSolnrh53.0-99.0The [facility] HospitalComment on above:Performed By: #### LIPID, BMP, ALT, TSH #### [facility] [address] [place] [address] Dr. Preethi Rust #0.8 103/ulNormal0.3-0.8The [facility] HospitalComment on above:Performed By: #### LIPID, BMP, ALT, TSH #### [facility] [address] [place] [address] Dr. Preethi Samuelocytes/100 WBC (Bld)9.1 %Normal1.7-12.0[facility] Comment on above:Performed By: #### LIPID, BMP, ALT, TSH #### [facility] [address] [place] [address] Dr. Preethi Cueto #4.9 103/ulNormal1.4-6.5The [facility] HospitalComment on above:Performed By: #### LIPID, BMP, ALT, TSH #### [facility] [address] [place] [address] Dr. Preethi Mathiasutrophils/100 WBC (Bld)59.6 %Uyqjky69.0-75.0The [facility] HospitalComment on above:Performed By: #### LIPID, BMP, ALT, TSH #### [facility] [address] [place] [address] Dr. Preethi Núñez mean volume (Bld) [Entitic vol]9.2 fLCritically low 9.5-13.5The [facility] HospitalComment on above:Performed By: #### LIPID, BMP, ALT, TSH #### [facility] [address] [address] [address] Preethi SimonPLT266 103/teAmmjlu217-949Ulk [facility] on above: Performed By: #### LIPID, BMP, ALT, TSH #### [facility] [address] [place] [address] Dr. Preethi SimonRBC4.34 106/ulNormal4.20-5.40The [facility] Hospitalment on above:Performed By: #### LIPID, BMP, ALT, TSH #### [facility] [address] [place] [address] Dr. Preethi SimonWBC8.3 103/ulNormal4.0-11.0The [facility] on above: Performed By: #### LIPID, BMP, ALT, TSH #### [facility] [address] [place] [address] Dr. Preethi SimonCUNADEGE URINEon 79-03-7255EFWYRZX URINECulture Observations: NO GROWTH.NormalClermont County Hospital on above:Performed By: #### LIPID, BMP, ALT, TSH #### [facility] [address] [place] [address] Dr. Preethi Williamson URINE PROFILEon 63-86-2853Pikknwxrd Ql (U)NegativeNormal NEGATIVEThe [facility] on above:Performed By: #### ADRIAN MELGOZAR #### [facility] [address] [place] [address] Dr. Preethi Hayden (U)CLEARNormalCLEARThe Genesis HospitalComment on above: Performed By: #### RHONA ERUR #### [facility] [address] [place] [address] Dr. Preethi Agee (U)LT. YELLOWNormalYELLOWClermont County Hospital on above:Performed By: #### UMICILIANA, ERUR #### [facility] [address] [place] [address] Dr. Preethi PizanoDA micrscopic examination will be performed if indicated. NormalThe [facility] HospitalComment on above:Performed By: #### RHONA, ERUR #### [facility] [address] [address] [address] Preethi SimonGlucose Ql (U)NegativeNormalNEGATIVEHenry County HospitalComment on above:Performed By: #### RHONA, ERUR #### [facility] [address] [address] [address] Preethi SimonHemoglobin Ql (U)NegativeNormalNEGATIVEHenry County Hospital Comment on above:Performed By: #### RHONA, ERUR #### [facility] [address] [address] [address] Preethi SimonKetones Ql (U)NegativeNormalNEGATIVEHenry County HospitalComment on above:Performed By: #### RHONA, ERUR #### [facility] [address] [place] [address] Dr. Preethi SimonLEUKOCYTESSMALLAbnormalNEGATIVEHenry County HospitalComment on above:Performed By: #### RHONA, ERUR #### [facility] [address] [address] [address] Preethi SimonNitrite Ql (U)NegativeNormalNEGFairfield Medical CenterComment on above:Performed By: #### RHONA, ERUR #### [facility] [address] [address] [address] Preethi SimonpH (U)7.0 [pH]Normal5-9Henry [facility] HospitalComment on above: Performed By: #### RHONA, ERUR #### [facility] [address] [address] [address] Preethi SimonSPEC GRAVITY<=1.041Tarmcxcv9.005-<=1.025[facility] Comment on above:Performed By: #### RHONA, ERUR #### [facility] [address] [address] [address] Preethi SimonUA PROTEINNegativeNormalNEGATIVE/ TRACEHenry County Hospital Comment on above:Performed By: #### RHONA ERUR #### [facility] [address] [place] [address] Dr. Preethi GALEANO INDINDICATEDNormalThe Genesis HospitalComment on above: Performed By: #### RHONA ERUR #### [facility] [address] [place] [address] Dr. Preethi Hollisino Qn (U)0.2 {Burton'U}/dLNormal0.2 - 1.0The Genesis HospitalComment on above:Performed By: #### RHONA ERUR #### [facility] [address] [place] [address] Dr. Preethi SimonLACTATE/LACTIC ACIDon [id number] [Moles/Vol]0.6 mmol/L Normal0.4-2.0The [facility] on above:Performed By: #### LIPID, BMP, ALT, TSH #### [facility] [address] [place] [address] Dr. Preethi Celeste 14(COMP METB)on 25-57-2173Vnnkqkz [Mass/Vol]3.7 g/dLNormal 3.4-5.0The [facility] on above:Performed By: #### RHONA, ERUR #### [facility] [address] [place] [address] Dr. Preethi SimonAlbumin/Globulin [Mass ratio]1.0 {ratio}NormalThe [facility] HospitalComselect specialty hospital on above:Performed By: #### RHONA ERUR #### [facility] [address] [place] [address] Dr. Preethi Reyes [Catalytic activity/Vol]97 U/KIjoznm94-639Puu [facility] on above:Performed By: #### RHONA, ERUR #### [facility] [address] [place] [address] Dr. Preethi Urrutia [Catalytic activity/Vol]64 U/LCritically blpw93-50Ylx [facility] HospitalComment on above:Performed By: #### RHONA, ERUR #### [facility] [address] [address] [address] Preethi Richey gap [Moles/Vol]7.9 mmol/LNormalThe Genesis HospitalComment on above:Performed By: #### RHONA, ERUR #### [facility] [address] [address] [address] Preethi SimonAST [Catalytic activity/Vol]23 U/KQihejn75-01Kyb [facility] HospitalComment on above:Performed By: #### RHONA, ERUR #### [facility] [address] [place] [address] Dr. Preethi SimonBilirubin [Mass/Vol]0.6 mg/dLNormal0.2-1.0[facility] Comment on above:Performed By: #### RHONA, ERUR #### [facility] [address] [place] [address] Dr. Preethi SimonCalcium [Mass/Vol]9.1 mg/dLNormal8.5-10.1[facility] Comment on above:Performed By: #### RHONA, ERUR #### [facility] [address] [place] [address] Dr. Preethi SimonChloride [Moles/Vol]93 mmol/LCritically tgj54-155Ngi [facility] HospitalComment on above:Performed By: #### RHONA, ERUR #### [facility] [address] [place] [address] Dr. Preethi SimonCO2 [Moles/Vol]31.1 mmol/TUvhfmn75.0-32.0[facility] Comment on above:Performed By: #### RHONA, ERUR #### [facility] [address] [place] [address] Dr. Preethi SimonCreatinine [Mass/Vol]0.76 mg/dLNormal0.55-1.02The [facility] HospitalComment on above:Performed By: #### RHONA, ERUR #### [facility] [address] [place] [address] Dr. Yilan ChangEGFR-AF COOK ISLANDER>60Normal>=60The [facility] HospitalComment on above:Performed By: #### RHONA ERUR #### [facility] [address] [place] [address] Dr. Preethi HowardGFR-NON AF COOK ISLANDER>60Normal>=60The [facility] HospitalComment on above:Performed By: #### RHONA ERUR #### [facility] [address] [place] [address] Dr. Preethi SimonGlobulin (S) [Mass/Vol]3.8 g/dLNormalThe Genesis HospitalComment on above:Performed By: #### HRONA ERUR #### [facility] [address] [place] [address] Dr. Preethi SimonGlucose [Mass/Vol]119 mg/dLCritically dzbk34-703Krx [facility] HospitalComment on above:Performed By: #### RHONA ERUR #### [facility] [address] [place] [address] Dr. Preethi SimonPotassium [Moles/Vol]4.0 mmol/LNormal3.5-5.1The [facility] Comment on above:Performed By: #### RHONA ERUR #### [facility] [address] [place] [address] Dr. Preethi SimonProtein [Mass/Vol]7.5 g/dLNormal6.4-8.2The [facility] Comment on above:Performed By: #### RHONA ERUR #### [facility] [address] [place] [address] Dr. Preethi SimonSodium [Moles/Vol]128 mmol/LCritically gay392-256Kyv Genesis HospitalComment on above:Performed By: #### RHONA ERUR #### [facility] [address] [place] [address] Dr. Preethi SimonUrea nitrogen [Mass/Vol]8.0 mg/dLNormal7.0-18.0The [facility] HospitalComment on above:Performed By: #### UMICRO, ERUR #### [facility] [address] [address] [address] Preethi Grigsby nitrogen/Creatinine [Mass ratio]10.5 mg/mgDayton VA Medical Center on above:Performed By: #### RHONA, ERUR #### [facility] [address] [address] [address] Preethi Ryan MICROSCOPIC ONLYon [id number] CRYSTALSMODERATE NormalThe Genesis HospitalComment on above:Performed By: #### RHONA, ERUR #### [facility] [address] [address] [address] Preethi StaufferSMALLAbnormalNONE SEENHenry County HospitalComselect specialty hospital on above:Performed By: #### RHONA, ERUR #### [facility] [address] [place] [address] Dr. Preethi Stauffer identified Cx Nom (U)INDICATEDWilson Street HospitalComselect specialty hospital on above:Performed By: #### RHONA, ERUR #### [facility] [address] [address] [address] Preethi Hay SEENNormalNONE SEENClermont County Hospital on above:Performed By: #### RHONA, ERUR #### [facility] [address] [address] [address] Preethi Samsystals LM Nom (Urine sed)SEENAbnormalNONE SEENThe [facility] HospitalComselect specialty hospital on above:Performed By: #### RHONA, ERUR #### [facility] [address] [address] [address] Oro ChangEpithelial cells LM Ql (Urine sed)FEWAbnormalNONE SEEN /RAREThe [facility] HospitalComselect specialty hospital on above:Performed By: #### RHONA, ERUR #### [facility] [address] [address] [address] Preethi AshleyE SEENNormalNONE SEENThe [facility] HospitalComselect specialty hospital on above:Performed By: #### RHONA ERUR #### [facility] [address] [place] [address] Dr. Preethi SimonDaqzxGLJ3-6Grsrnk0-1Gkn Genesis HospitalComment on above:Performed By: #### RHONA ERUR #### [facility] [address] [address] [address] Preethi SimonWBC5-10AbnormalNONE SEENThe Genesis HospitalComment on above: Performed By: #### RHONA ERUR #### [facility] [address] [place] [address] Dr. Preethi Coffman AUTO DIFFon [id number] #0.0 103/ulNormal0.0-0.1The [facility] HospitalComment on above:Performed By: #### CBC #### [facility] [address] [place] [address] Dr. Preethi SimonBasophils/100 WBC (Bld)0.3 %Normal0.2-2.0[facility] Comment on above:Performed By: #### CBC #### [facility] [address] [place] [address] Dr. Preethi Dickinson #0.1 103/ulNormal0.0-0.7The [facility] HospitalComment on above: Performed By: #### CBC #### [facility] [address] [place] [address] Dr. Preethi Howardosinophils/100 WBC (Bld)1.8 %Normal0.9-7.0[facility] Comment on above:Performed By: #### CBC #### [facility] [address] [place] [address] Dr. Preethi Howardrythrocyte distribution width (RBC) [Ratio]14.4 %Zkfusk24.0-15.0 The Genesis HospitalComment on above:Performed By: #### CBC #### [facility] [address] [place] [address] Dr. Preethi SimonHematocrit (Bld) [Volume fraction]37.7 %Qgxkpc64.0-48.0The [facility] HospitalComment on above:Performed By: #### CBC #### [facility] [address] [place] [address] Dr. Preethi SimonHemoglobin (Bld) [Mass/Vol]12.7 g/vSWrykuk96.0-16.0The [facility] HospitalComment on above:Performed By: #### CBC #### [facility] [address] [place] [address] Dr. Preethi Choudhary #0.01 10e3/ulNormal0.00-0.03The [facility] HospitalComment on above:Performed By: #### CBC #### [facility] [address] [place] [address] Dr. Preethi Choudhary %0.2 %Normal0.0-0.5The [facility] HospitalComment on above: Performed By: #### CBC #### [facility] [address] [place] [address] Dr. Preethi Kruger #2.1 103/ulNormal1.2-3.8The [facility] HospitalComment on above:Performed By: #### CBC #### [facility] [address] [place] [address] Dr. Preethi Melgarhocytes/100 WBC (Bld)31.6 %Iiawmg18.5-60.0The [facility] HospitalComment on above:Performed By: #### CBC #### [facility] [address] [place] [address] Dr. Preethi CabreraUAL DIFF REQNONormalThe Genesis HospitalComment on above: Performed By: #### CBC #### [facility] [address] [place] [address] Dr. Preethi Aguirre (RBC) [Entitic mass]30.3 bzJaerzw13.7-34.0The [facility] HospitalComment on above:Performed By: #### CBC #### [facility] [address] [place] [address] Dr. Preethi Aguirre (RBC) [Mass/Vol]33.7 g/aWTkxftb43.9-35.2The [facility] HospitalComment on above:Performed By: #### CBC #### [facility] [address] [place] [address] Dr. Preethi Zee (RBC) [Entitic vol]90.0 gHJjuezy31.0-99.0The [facility] HospitalComment on above:Performed By: #### CBC #### [facility] [address] [place] [address] Dr. Preethi Rust #0.7 103/ulNormal0.3-0.8The [facility] HospitalComment on above:Performed By: #### CBC #### [facility] [address] [place] [address] Dr. Preethi Samuelocytes/100 WBC (Bld)11.2 %Normal1.7-12.0[facility] Comment on above:Performed By: #### CBC #### [facility] [address] [place] [address] Dr. Preethi Cueto #3.6 103/ulNormal1.4-6.5The [facility] HospitalComment on above:Performed By: #### CBC #### [facility] [address] [place] [address] Dr. Preethi Mathiasutrophils/100 WBC (Bld)54.9 %Dxtrke15.0-75.0The [facility] HospitalComment on above:Performed By: #### CBC #### [facility] [address] [place] [address] Dr. Preethi Bucklet mean volume (Bld) [Entitic vol]9.8 fLNormal9.5-13.5The [facility] HospitalComment on above:Performed By: #### CBC #### [facility] [address] [place] [address] Dr. Preethi HanT232 103/xvEkvpjm417-414Ywt [facility] HospitalComment on above: Performed By: #### CBC #### [facility] [address] [place] [address] Dr. Preethi SimonRBC4.19 106/ulCritically low4.20-5.40[facility] on above:Performed By: #### CBC #### [facility] [address] [place] [address] Dr. Preethi SimonWBC6.6 103/ulNormal4.0-11.0[facility] on above: Performed By: #### CBC #### [facility] [address] [place] [address] Dr. Preethi Williamson URINE PROFILEon 06-77-4530Dvhjeeesb Ql (U)NegativeNormal NEGATIVEHenry County HospitalComment on above:Performed By: #### ERUR #### [facility] [address] [place] [address] Dr. Preethi Fariasarity (U)CLEARNormalCLEARFirelands Regional Medical Center South Campusment on above: Performed By: #### ERUR #### [facility] [address] [place] [address] Dr. Preethi Agee (U)LT. YELLOWNormalYELLOWHenry County HospitalComment on above:Performed By: #### ERUR #### [facility] [address] [place] [address] Dr. Preethi PizanoBEST micrscopic examination will be performed if indicated. NormalThe [facility] HospitalComselect specialty hospital on above:Performed By: #### ERUR #### [facility] [address] [place] [address] Dr. Preethi SimonGlucose Ql (U)NegativeNormalNEGATIVEFirelands Regional Medical Center South Campusment on above:Performed By: #### ERUR #### [facility] [address] [place] [address] Dr. Preethi SimonHemoglobin Ql (U)NegativeNormalNEGATIVEOhiohealth Nelsonville [facility] Center on above:Performed By: #### ERUR #### [facility] [address] [place] [address] Dr. Preethi SimonKetones Ql (U)NegativeNormalNEGATIVEHenry County HospitalComment on above:Performed By: #### ERUR #### [facility] [address] [place] [address] Dr. Preethi SimonLEUKOCYTESNegativeNormalNEGATIVEHenry County HospitalComment on above:Performed By: #### ERUR #### [facility] [address] [place] [address] Dr. Preethi Monahantrfranklin Ql (U)NegativeNormalNEGATIVEThe [facility] HospitalComment on above:Performed By: #### ERUR #### [facility] [address] [place] [address] Dr. Preethi SimonpH (U)6.0 [pH]Normal5-9The [facility] HospitalComment on above: Performed By: #### ERUR #### [facility] [address] [place] [address] Dr. Preethi SimonSPEC GRAVITY<=1.113Jjqlcsmt5.005-<=1.025[facility] Comment on above:Performed By: #### ERUR #### [facility] [address] [place] [address] Dr. Preethi Otero PROTEINNegativeNormalNEGATIVE/ TRACEThe [facility] Comment on above:Performed By: #### ERUR #### [facility] [address] [place] [address] Dr. Preethi Solis MICRO INDNOT INDICATEDNormalThSumma HealthComment on above:Performed By: #### ERUR #### [facility] [address] [place] [address] Dr. Preethi Gómezbilinogen Qn (U)0.2 {Burton'U}/dLNormal0.2 - 1.0[facility] HospitalComment on above:Performed By: #### ERUR #### [facility] [address] [place] [address] Dr. Preethi SimonLIPASEon [id number] [Catalytic activity/Vol]108.0 U/LNormal 73.0-393.0The [facility] HospitalComment on above:Performed By: #### LIPID, BMP, ALT, TSH #### [facility] [address] [place] [address] Dr. Preethi Celeste 14(COMP METB)on 35-52-2462Amnmdor [Mass/Vol]3.6 g/dLNormal 3.4-5.0The [facility] HospitalComment on above:Performed By: #### LIPID, BMP, ALT, TSH #### [facility] [address] [address] [address] Preethi SimonAlbumin/Globulin [Mass ratio]1.0 {ratio}NormalThe [facility] HospitalComment on above:Performed By: #### LIPID, BMP, ALT, TSH #### [facility] [address] [address] [address] Preethi Reyes [Catalytic activity/Vol]117 U/LCritically ymeu32-394Iao [facility] HospitalComment on above:Performed By: #### LIPID, BMP, ALT, TSH #### [facility] [address] [address] [address] Preethi Urrutia [Catalytic activity/Vol]138 U/LCritically mcvj73-32Orr [facility] HospitalComment on above:Performed By: #### LIPID, BMP, ALT, TSH #### [facility] [address] [address] [address] Preethi Richey gap [Moles/Vol]12.2 mmol/LNormalThe [facility] Comment on above:Performed By: #### LIPID, BMP, ALT, TSH #### [facility] [address] [address] [address] Preethi SimonAST [Catalytic activity/Vol]53 U/LCritically cydy21-18Ecz [facility] HospitalComment on above:Performed By: #### LIPID, BMP, ALT, TSH #### [facility] [address] [address] [address] Preethi SimonBilirubin [Mass/Vol]0.3 mg/dLNormal0.2-1.0[facility] Comment on above:Performed By: #### LIPID, BMP, ALT, TSH #### [facility] [address] [address] [address] Preethi SimonCalcium [Mass/Vol]9.3 mg/dLNormal8.5-10.1The [facility] Comment on above:Performed By: #### LIPID, BMP, ALT, TSH #### [facility] [address] [address] [address] Preethi SimonChloride [Moles/Vol]101 mmol/AEdbwfk08-063Nra [facility] Comment on above:Performed By: #### LIPID, BMP, ALT, TSH #### [facility] [address] [place] [address] Dr. Preethi SimonCO2 [Moles/Vol]30.0 mmol/YPdrphk73.0-32.0The [facility] Comment on above:Performed By: #### LIPID, BMP, ALT, TSH #### [facility] [address] [place] [address] Dr. Preethi SimonCreatinine [Mass/Vol]0.77 mg/dLNormal0.55-1.02The [facility] HospitalComment on above:Performed By: #### LIPID, BMP, ALT, TSH #### [facility] [address] [place] [address] Dr. Preethi HowardGFR-AF COOK ISLANDER>60Normal>=60The [facility] HospitalComment on above:Performed By: #### LIPID, BMP, ALT, TSH #### [facility] [address] [place] [address] Dr. Preethi HowardGFR-NON AF COOK ISLANDER>60Normal>=60The [facility] HospitalComment on above:Performed By: #### LIPID, BMP, ALT, TSH #### [facility] [address] [place] [address] Dr. Preethi SimonGlobulin (S) [Mass/Vol]3.5 g/dLNormalThe [facility] HospitalComment on above:Performed By: #### LIPID, BMP, ALT, TSH #### [facility] [address] [place] [address] Dr. Preethi SimonGlucose [Mass/Vol]113 mg/dLCritically zwqv25-368Xgt [facility] HospitalComment on above:Performed By: #### LIPID, BMP, ALT, TSH #### [facility] [address] [place] [address] Dr. Preethi SimonPotassium [Moles/Vol]4.2 mmol/LNormal3.5-5.1The [facility] Comment on above:Performed By: #### LIPID, BMP, ALT, TSH #### [facility] [address] [place] [address] Dr. Preethi SimonProtein [Mass/Vol]7.1 g/dLNormal6.4-8.2The [facility] Comment on above:Performed By: #### LIPID, BMP, ALT, TSH #### [facility] [address] [place] [address] Dr. Preethi SimonSodium [Moles/Vol]139 mmol/RGlkxwn584-593Dyn [facility] Comment on above:Performed By: #### LIPID, BMP, ALT, TSH #### [facility] [address] [place] [address] Dr. Preethi SimonUrea nitrogen [Mass/Vol]9.0 mg/dLNormal7.0-18.0[facility] HospitalComment on above:Performed By: #### LIPID, BMP, ALT, TSH #### [facility] [address] [place] [address] Dr. Preethi Grigsby nitrogen/Creatinine [Mass ratio]11.7 mg/mgNormalThe [facility] HospitalComment on above:Performed By: #### LIPID, BMP, ALT, TSH #### [facility] [address] [place] [address] Dr. Preethi Hugo, HIGH SENSITIVITYon 13-37-1597LDDDXR5.0 pg/mLNormal 4.0-51.3TUniversity Hospitals Samaritan Medical CenterComment on above:Result Comment: CUT-OFF POINTS HAVE BEEN ESTABLISHED BASED ON THE FOURTH UNIVERSAL DEFINITIONS OF MYOCARDIAL INFARCTION. THE UPPER REFERENCE LIMIT (URL) OF TROPONIN, DEFINED THE 99TH PERCENTILE OF cTnI DISTRIBUTION IN A REFERENCE POPULATION, HAS BEEN CONFIRMED THE DECISION THRESHOLD FOR CT DIAGNOSIS.Performed By: #### LIPID, BMP, ALT, TSH #### [facility] [address] [place] [address] Dr. Preethi SimonAMYLASEon [id number] [Catalytic activity/Vol]41 U/LNormal 25-115[facility] Campusment on above:Performed By: #### LIPID, BMP, ALT, TSH #### [facility] [address] [place] [address] Dr. Preethi WILCOX 3-6on 35-50-1428GK [Catalytic activity/Vol]48 U/L Fjwudn72-843Ypp [facility] HospitalComment on above:Performed By: #### LIPID, BMP, ALT, TSH #### [facility] [address] [address] [address] Preethi Varela.MB [Mass/Vol]0.97 ng/mLNormal<=3.60[facility] Comment on above:Performed By: #### LIPID, BMP, ALT, TSH #### [facility] [address] [place] [address] Dr. Preethi BrewsterTROP8.7 pg/mLNormal4.0-51.3The Genesis HospitalComment on above:Result Comment: CUT-OFF POINTS HAVE BEEN ESTABLISHED BASED ON THE FOURTH UNIVERSAL DEFINITIONS OF MYOCARDIAL INFARCTION. THE UPPER REFERENCE LIMIT (URL) OF TROPONIN, DEFINED THE 99TH PERCENTILE OF cTnI DISTRIBUTION IN A REFERENCE POPULATION, HAS BEEN CONFIRMED THE DECISION THRESHOLD FOR CT DIAGNOSIS.Performed By: #### LIPID, BMP, ALT, TSH #### [facility] [address] [place] [address] Dr. Preethi WILCOX ADMITon [id number] [Catalytic activity/Vol]47 U/L Phqssx70-871YluHenry County HospitalComment on above:Performed By: #### LIPID, BMP, ALT, TSH #### [facility] [address] [address] [address] Preethi Varela.MB [Mass/Vol]0.85 ng/mLNormal<=3.60[facility] Comment on above:Performed By: #### LIPID, BMP, ALT, TSH #### [facility] [address] [address] [address] Preethi BrewsterTROP7.5 pg/mLNormal4.0-51.3The [facility] HospitalComment on above:Result Comment: CUT-OFF POINTS HAVE BEEN ESTABLISHED BASED ON THE FOURTH UNIVERSAL DEFINITIONS OF MYOCARDIAL INFARCTION. THE UPPER REFERENCE LIMIT (URL) OF TROPONIN, DEFINED THE 99TH PERCENTILE OF cTnI DISTRIBUTION IN A REFERENCE POPULATION, HAS BEEN CONFIRMED THE DECISION THRESHOLD FOR CT DIAGNOSIS.Performed By: #### LIPID, BMP, ALT, TSH #### [facility] [address] [place] [address] Dr. Preethi HerreraO45 ng/mLNormal9-82The [facility] HospitalComment on above: Performed By: #### LIPID, BMP, ALT, TSH #### [facility] [address] [place] [address] Dr. Preethi Coffman AUTO DIFFon [id number] #0.0 103/ulNormal0.0-0.1The [facility] HospitalComment on above:Performed By: #### LIPID, BMP, ALT, TSH #### [facility] [address] [place] [address] Dr. Preethi SimonBasophils/100 WBC (Bld)0.2 %Normal0.2-2.0[facility] Comment on above:Performed By: #### LIPID, BMP, ALT, TSH #### [facility] [address] [place] [address] Dr. Preethi Dickinson #0.1 103/ulNormal0.0-0.7The [facility] HospitalComment on above: Performed By: #### LIPID, BMP, ALT, TSH #### [facility] [address] [place] [address] Dr. Preethi Howardosinophils/100 WBC (Bld)1.8 %Normal0.9-7.0[facility] Comment on above:Performed By: #### LIPID, BMP, ALT, TSH #### [facility] [address] [place] [address] Dr. Preethi Howardrythrocyte distribution width (RBC) [Ratio]13.8 %Uwudpa23.0-15.0 The [facility] HospitalComment on above:Performed By: #### LIPID, BMP, ALT, TSH #### [facility] [address] [place] [address] Dr. Preethi SimonHematocrit (Bld) [Volume fraction]39.7 %Vlofjd36.0-48.0The [facility] HospitalComment on above:Performed By: #### LIPID, BMP, ALT, TSH #### [facility] [address] [place] [address] Dr. Preethi SimonHemoglobin (Bld) [Mass/Vol]13.4 g/jRLobueu58.0-16.0The [facility] HospitalComment on above:Performed By: #### LIPID, BMP, ALT, TSH #### [facility] [address] [place] [address] Dr. Preethi Choudhary #0.01 10e3/ulNormal0.00-0.03The [facility] HospitalComment on above:Performed By: #### LIPID, BMP, ALT, TSH #### [facility] [address] [place] [address] Dr. Preethi Choudhary %0.2 %Normal0.0-0.5The [facility] HospitalComment on above: Performed By: #### LIPID, BMP, ALT, TSH #### [facility] [address] [place] [address] Dr. Preethi Kruger #0.7 103/ulCritically low1.2-3.8[facility] Comment on above:Performed By: #### LIPID, BMP, ALT, TSH #### [facility] [address] [place] [address] Dr. Preethi Steenmphocytes/100 WBC (Bld)11.8 %Critically low20.5-60.0The [facility] HospitalComment on above:Performed By: #### LIPID, BMP, ALT, TSH #### [facility] [address] [place] [address] Dr. Preethi CabreraUAL DIFF REQNONormalThe Genesis HospitalComment on above: Performed By: #### LIPID, BMP, ALT, TSH #### [facility] [address] [place] [address] Dr. Preethi Aguirre (RBC) [Entitic mass]30.2 seKgbbcr21.7-34.0The [facility] HospitalComment on above:Performed By: #### LIPID, BMP, ALT, TSH #### [facility] [address] [place] [address] Dr. Preethi Aguirre (RBC) [Mass/Vol]33.8 g/rHXlbjql22.9-35.2The [facility] HospitalComment on above:Performed By: #### LIPID, BMP, ALT, TSH #### [facility] [address] [place] [address] Dr. Preethi Aguirre (RBC) [Entitic vol]89.6 zKQeqqzl43.0-99.0The [facility] HospitalComment on above:Performed By: #### LIPID, BMP, ALT, TSH #### [facility] [address] [place] [address] Dr. Preethi Rust #0.5 103/ulNormal0.3-0.8The [facility] HospitalComment on above:Performed By: #### LIPID, BMP, ALT, TSH #### [facility] [address] [place] [address] Dr. Preethi Samuelocytes/100 WBC (Bld)9.0 %Normal1.7-12.0[facility] Comment on above:Performed By: #### LIPID, BMP, ALT, TSH #### [facility] [address] [place] [address] Dr. Preethi Cueto #4.3 103/ulNormal1.4-6.5The [facility] HospitalComment on above:Performed By: #### LIPID, BMP, ALT, TSH #### [facility] [address] [place] [address] Dr. Preethi Mathiasutrophils/100 WBC (Bld)77.0 %Critically high43.0-75.0The [facility] HospitalComment on above:Performed By: #### LIPID, BMP, ALT, TSH #### [facility] [address] [place] [address] Dr. Yilan ChangPlatelet mean volume (Bld) [Entitic vol]9.6 fLNormal9.5-13.5The [facility] HospitalComment on above:Performed By: #### LIPID, BMP, ALT, TSH #### [facility] [address] [place] [address] Dr. Preethi SimonPLT220 103/osGiufjb383-001Guf [facility] HospitalComment on above: Performed By: #### LIPID, BMP, ALT, TSH #### [facility] [address] [place] [address] Dr. Preethi SimonRBC4.43 106/ulNormal4.20-5.40The [facility] HospitalComment on above:Performed By: #### LIPID, BMP, ALT, TSH #### [facility] [address] [place] [address] Dr. Preethi SimonWBC5.6 103/ulNormal4.0-11.0The [facility] HospitalComment on above: Performed By: #### LIPID, BMP, ALT, TSH #### [facility] [address] [place] [address] Dr. Preethi SimonCT ABD/PELV W CONon [id number] ABD/PELV W CONEXAMINATION: CT ABD/PELV W CON HISTORY: GENERALIZED ABDOMINAL PAIN shingles, vomiting. COMPARISON: CT abdomen/pelvis 08/24/2022. TECHNIQUE: Multiple axial CT images of the abdomen and pelvis were performed with IV contrast. 2D coronal and sagittal reformations were submitted for review. Dose reduction techniques were achieved by using automated exposure control and/or adjustment of mA and/or kV according to patient size and/or use of iterative reconstruction technique. FINDINGS: LUNGS: Mild streak-like bibasilar atelectasis. No pleural effusion. ABDOMINAL AORTA: No aortic aneurysm identified. Mild to moderate calcific plaque. LYMPH NODES: No retroperitoneal, mesenteric or pelvic lymphadenopathy. LIVER: Liver contour appears smooth. No focal liver parenchymal mass identified. BILIARY TREE AND GALLBLADDER: No intrahepatic or extrahepatic bile duct dilatation. Prior cholecystectomy. PANCREAS: Normal in size without masses or ductal dilatation. No peripancreatic inflammatory changes. SPLEEN: Normal in size without focal lesions. ADRENAL GLANDS: Stable left adrenal gland nodules measuring up to 2.8 cm. KIDNEYS/URINARY BLADDER: Kidneys enhance in a symmetric fashion. No parenchymal lesions identified. Minor cortical scar at the inferior pole the left kidney. No KUB stones or hydronephrosis identified. The urinary bladder appears unremarkable. GASTROINTESTINAL TRACT: Sigmoid diverticulosis is seen without diverticulitis. The stomach and duodenum appear unremarkable. Mild scattered fluid throughout nondilated small bowel. Appendix is not seen with certainty. PERITONEAL CAVITY AND SURFACES: No free fluid. No free intraperitoneal air. REPRODUCTIVE ORGANS: Fibroid morphology of the uterus, unchanged. ABDOMINAL WALL: No abdominal hernias are seen. OSSEOUS STRUCTURES: No aggressive appearing osseous lesions. No compression fracture is identified. Convex left curvature of the lumbar spine with cafe-id-rhfdrhop degenerative disc disease. Grade 1 degenerative anterolisthesis at L4-5. Bones are osteopenic. IMPRESSION: 1. Fluid throughout nondilated small bowel may correlate with enteritis or mild ileus. No bowel obstruction. 2. Sigmoid diverticulosis without diverticulitis. 3. Stable fibroid morphology of the uterus. 4. Stable left adrenal gland nodules. Electronically authenticated by: VIOLETTA MONROE Date: 2023-01-26 06:[address] [place], [place] [address]LIPASEon 98-31-7584Tfjtkk [Catalytic activity/Vol]125.0 U/L Qgeyzl30.0-393.0The [facility] Hospitalment on above:Performed By: #### ADRIAN MELGOZAR #### [facility] [address] [place] [address] Dr. Preethi Sheppard 45-56-6855Fcytbsujq (Bld) [#/Vol]NegativeNormalNEGATIVEThe [facility] HospitalComment on above:Performed By: #### LIPID, BMP, ALT, TSH #### [facility] [address] [address] [address] Preethi Celeste 14(COMP METB)on 86-71-4711Rxjpdlv [Mass/Vol]3.7 g/dLNormal 3.4-5.0The [facility] HospitalComment on above:Performed By: #### ADRIAN MELGOZAR #### [facility] [address] [address] [address] Preethi SimonAlbumin/Globulin [Mass ratio]1.0 {ratio}NormalHenry County HospitalComment on above:Performed By: #### RHONA ERUR #### [facility] [address] [place] [address] Dr. Preethi GuzmánP [Catalytic activity/Vol]122 U/LCritically hlju37-072Kqy [facility] HospitalComment on above:Performed By: #### RHONA ERUR #### [facility] [address] [place] [address] Dr. Preethi GuzmánT [Catalytic activity/Vol]225 U/LCritically gijj91-05Jty [facility] HospitalComment on above:Performed By: #### RHONA ERUR #### [facility] [address] [place] [address] Dr. Preethi SimonAnion gap [Moles/Vol]11.0 mmol/LNormalHenry County Hospital Comment on above:Performed By: #### RHONA ERUR #### [facility] [address] [place] [address] Dr. Preethi SimonAST [Catalytic activity/Vol]219 U/LCritically wtkc82-30Jeo [facility] HospitalComment on above:Performed By: #### RHONA ERUR #### [facility] [address] [place] [address] Dr. Preethi SimonBilirubin [Mass/Vol]0.6 mg/dLNormal0.2-1.0[facility] Comment on above:Performed By: #### RHONA ERUR #### [facility] [address] [place] [address] Dr. Preethi SimonCalcium [Mass/Vol]9.0 mg/dLNormal8.5-10.1[facility] Comment on above:Performed By: #### RHONA ERUR #### [facility] [address] [place] [address] Dr. Preethi SimonChloride [Moles/Vol]95 mmol/LCritically tvv82-132Nuy [facility] HospitalComment on above:Performed By: #### UMICRO, ERUR #### [facility] [address] [address] [address] Preethi SimonCO2 [Moles/Vol]26.8 mmol/QEjlnej83.0-32.0[facility] Comment on above:Performed By: #### RHONA, ERUR #### [facility] [address] [address] [address] Preethi SimonCreatinine [Mass/Vol]0.77 mg/dLNormal0.55-1.02The [facility] HospitalComment on above:Performed By: #### RHONA, ERUR #### [facility] [address] [address] [address] Preethi HowardGFR-AF COOK ISLANDER>60Normal>=60The [facility] HospitalComment on above:Performed By: #### RHONA, ERUR #### [facility] [address] [address] [address] Preethi Dexter-NON AF COOK ISLANDER>60Normal>=60The [facility] HospitalComment on above:Performed By: #### RHONA, ERUR #### [facility] [address] [address] [address] Preethi SimonGlobulin (S) [Mass/Vol]3.6 g/dLNormalThe [facility] HospitalComment on above:Performed By: #### RHONA, ERUR #### [facility] [address] [address] [address] Preethi SimonGlucose [Mass/Vol]133 mg/dLCritically blno89-150Fpq [facility] HospitalComment on above:Performed By: #### RHONA, ERUR #### [facility] [address] [address] [address] Preethi SimonPotassium [Moles/Vol]3.8 mmol/LNormal3.5-5.1[facility] Comment on above:Performed By: #### RHONA, ERUR #### [facility] [address] [address] [address] Preethi SimonProtein [Mass/Vol]7.3 g/dLNormal6.4-8.2[facility] Comment on above:Performed By: #### RHONA ERUR #### [facility] [address] [place] [address] Dr. Preethi SimonSodium [Moles/Vol]129 mmol/LCritically kgb862-592Ixy [facility] HospitalComment on above:Performed By: #### RHONA ERUR #### [facility] [address] [place] [address] Dr. Preethi SimonUrea nitrogen [Mass/Vol]8.0 mg/dLNormal7.0-18.0The [facility] HospitalComment on above:Performed By: #### RHONA ERUR #### [facility] [address] [place] [address] Dr. Preethi Grigsby nitrogen/Creatinine [Mass ratio]10.4 mg/mgNormalThe [facility] HospitalComment on above:Performed By: #### RHONA ERUR #### [facility] [address] [place] [address] Dr. Preethi Coffman AUTO DIFFon 19-70-9156JZEG #0.0 103/ulNormal0.0-0.1The [facility] HospitalComment on above:Performed By: #### RHONA ERUR #### [facility] [address] [place] [address] Dr. Preethi SimonBasophils/100 WBC (Bld)0.3 %Normal0.2-2.0[facility] Comment on above:Performed By: #### RHONA ERUR #### [facility] [address] [place] [address] Dr. Preethi Dickinson #0.2 103/ulNormal0.0-0.7The [facility] HospitalComment on above: Performed By: #### RHONA ERUR #### [facility] [address] [place] [address] Dr. Oro ChangEosinophils/100 WBC (Bld)2.9 %Normal0.9-7.0[facility] Comment on above:Performed By: #### ADRIAN MELGOZAR #### [facility] [address] [place] [address] Dr. Preethi Howardrythrocyte distribution width (RBC) [Ratio]14.4 %Kdzrlh75.0-15.0 The [facility] HospitalComment on above:Performed By: #### RHONA ERUR #### [facility] [address] [place] [address] Dr. Preethi SimonHematocrit (Bld) [Volume fraction]41.1 %Jydvnr27.0-48.0The [facility] HospitalComment on above:Performed By: #### ADRIAN MELGOZAR #### [facility] [address] [place] [address] Dr. Preethi SimonHemoglobin (Bld) [Mass/Vol]13.4 g/hARuhxak67.0-16.0The [facility] HospitalComment on above:Performed By: #### ADRIAN MELGOZAR #### [facility] [address] [place] [address] Dr. Preethi Choudhary #0.02 10e3/ulNormal0.00-0.03The [facility] HospitalComment on above:Performed By: #### ADRIAN MELGOZAR #### [facility] [address] [place] [address] Dr. Preethi Choudhary %0.3 %Normal0.0-0.5The [facility] HospitalComment on above: Performed By: #### ADRIAN MELGOZAR #### [facility] [address] [place] [address] Dr. Preethi MelgarH #1.5 103/ulNormal1.2-3.8The [facility] HospitalComment on above:Performed By: #### ADRIAN MELGOZAR #### [facility] [address] [place] [address] Dr. Preethi Steenmphocytes/100 WBC (Bld)22.7 %Satitd11.5-60.0The [facility] HospitalComment on above:Performed By: #### RHONA ERUR #### [facility] [address] [place] [address] Dr. Preethi Bain DIFF REQNONormalThe [facility] HospitalComment on above: Performed By: #### RHONA ERUR #### [facility] [address] [place] [address] Dr. Preethi Aguirre (RBC) [Entitic mass]30.3 ntBxbrab97.7-34.0The [facility] HospitalComment on above:Performed By: #### RHONA ERUR #### [facility] [address] [place] [address] Dr. Preethi Aguirre (RBC) [Mass/Vol]32.6 g/wJPrbpqr60.9-35.2The [facility] HospitalComment on above:Performed By: #### RHONA ERUR #### [facility] [address] [place] [address] Dr. Preethi Aguirre (RBC) [Entitic vol]93.0 kKFloajn52.0-99.0The [facility] HospitalComment on above:Performed By: #### ADRIAN MELGOZAR #### [facility] [address] [place] [address] Dr. Preethi Rust #0.5 103/ulNormal0.3-0.8The [facility] HospitalComment on above:Performed By: #### RHONA ERUR #### [facility] [address] [place] [address] Dr. Preethi Samuelocytes/100 WBC (Bld)8.1 %Normal1.7-12.0[facility] Comment on above:Performed By: #### ADRIAN MELGOZAR #### [facility] [address] [place] [address] Dr. Preethi Cueto #4.3 103/ulNormal1.4-6.5The [facility] HospitalComment on above:Performed By: #### RHONA ERUR #### [facility] [address] [place] [address] Dr. Yilan ChangNeutrophils/100 WBC (Bld)65.7 %Fpuqnj71.0-75.0The [facility] Hospitalment on above:Performed By: #### RHONA, ERUR #### [facility] [address] [place] [address] Dr. Preethi SimonPlatelet mean volume (Bld) [Entitic vol]9.3 fLCritically low 9.5-13.5The [facility] HospitalComment on above:Performed By: #### RHONA, ERUR #### [facility] [address] [place] [address] Dr. Preethi SimonPLT272 103/utJujrty499-911Mwr [facility] HospitalComment on above: Performed By: #### RHONA, ERUR #### [facility] [address] [place] [address] Dr. Preethi SimonRBC4.42 106/ulNormal4.20-5.40The [facility] HospitalComselect specialty hospital on above:Performed By: #### RHONA, ERUR #### [facility] [address] [place] [address] Dr. Preethi SimonWBC6.6 103/ulNormal4.0-11.0The [facility] on above: Performed By: #### RHONA, ERUR #### [facility] [address] [place] [address] Dr. Preethi SimonFERRITINon 99-26-2746Jxdwlvdw [Mass/Vol]55.0 ng/mLNormal8.0-252.0 The [facility] HospitalComselect specialty hospital on above:Performed By: #### RHONA, ERUR #### [facility] [address] [place] [address] Dr. Preethi SimonLIPID PROFILEon [id number]-HDL RATIO NORMSEE [facility] HospitalComment on above:Result Comment: 3.3 - 4.4 LOW RISK 4.4 - 7.1 AVERAGE RISK 7.1 - 11.0 MODERATE RISK >11.0 HIGH RISKPerformed By: #### LIPID, BMP, ALT, TSH #### [facility] [address] [address] [address] Preethi SimonCholesterol [Mass/Vol]300 mg/dLCritically high<=200[facility] on above:Performed By: #### LIPID, BMP, ALT, TSH #### [facility] [address] [address] [address] Preethi Altmanesterol in HDL [Mass/Vol]66 mg/dLCritically tdcw34-70Jfy [facility] on above:Performed By: #### LIPID, BMP, ALT, TSH #### [facility] [address] [address] [address] Preethi SimonCholesterol in LDL [Mass/Vol]200.8 mg/dLDayton VA Medical Center on above:Performed By: #### LIPID, BMP, ALT, TSH #### [facility] [address] [place] [address] Dr. Preethi Altmanesterdrew.total/Cholesterol in HDL [Mass ratio]4.5 {ratio} NormalClermont County Hospital on above:Performed By: #### LIPID, BMP, ALT, TSH #### [facility] [address] [place] [address] Dr. Preethi Kitchen NORMAL> or = 60 mg/dl - LOW CARDIOVASCULAR RISK <40 mg/dl - HIGH CARDIOVASCULAR RISKDayton VA Medical Center on above:Performed By: #### LIPID, BMP, ALT, TSH #### [facility] [address] [place] [address] Dr. Preethi SimonLDL CALC NORMALSEE BELOWWilson Street HospitalComselect specialty hospital on above:Result Comment: <100 mg/dl OPTIMAL 100 - 129 mg/dl NEAR OR ABOVE OPTIMAL 130 - 159 mg/dl BORDERLINE HIGH 160 - 189 mg/dl HIGH >190 mg/dl VERY HIGH Performed By: #### LIPID, BMP, ALT, TSH #### [facility] [address] [place] [address] Dr. Preethi SimonTriglyceride [Mass/Vol]166 mg/dLCritically high<=150The [facility] HospitalComment on above:Performed By: #### LIPID, BMP, ALT, TSH #### [facility] [address] [address] [address] Preethi SimonVLDL CALC33.2 mg/dLNormalThe [facility] HospitalComment on above: Performed By: #### LIPID, BMP, ALT, TSH #### [facility] [address] [address] [address] Preethi SimonPROF CHEM 8 (BAS METB)on 84-45-6003Mcmze gap [Moles/Vol]7.4 mmol/LNormalThe [facility] HospitalComment on above:Performed By: #### LIPID, BMP, ALT, TSH #### [facility] [address] [place] [address] Dr. Preethi SimonCalcium [Mass/Vol]9.3 mg/dLNormal8.5-10.1The [facility] Comment on above:Performed By: #### LIPID, BMP, ALT, TSH #### [facility] [address] [address] [address] Preethi SimonChloride [Moles/Vol]104 mmol/YIeuevx51-590Fmr [facility] Comment on above:Performed By: #### LIPID, BMP, ALT, TSH #### [facility] [address] [address] [address] Preethi SimonCO2 [Moles/Vol]32.8 mmol/LCritically high21.0-32.0The [facility] HospitalComment on above:Performed By: #### LIPID, BMP, ALT, TSH #### [facility] [address] [place] [address] Dr. Preethi iSmonCreatinine [Mass/Vol]0.73 mg/dLNormal0.55-1.02The [facility] HospitalComment on above:Performed By: #### LIPID, BMP, ALT, TSH #### [facility] [address] [place] [address] Dr. Oro ChangEGFR-AF COOK ISLANDER>60Normal>=60The [facility] HospitalComment on above:Performed By: #### LIPID, BMP, ALT, TSH #### [facility] [address] [address] [address] Preethi HowardGFR-NON AF COOK ISLANDER>60Normal>=60The [facility] HospitalComment on above:Performed By: #### LIPID, BMP, ALT, TSH #### [facility] [address] [address] [address] Preethi SimonGlucose [Mass/Vol]105 mg/sYSgwytw46-253Nxt [facility] Comment on above:Performed By: #### LIPID, BMP, ALT, TSH #### [facility] [address] [address] [address] Preethi SimonPotassium [Moles/Vol]4.2 mmol/LNormal3.5-5.1[facility] Comment on above:Performed By: #### LIPID, BMP, ALT, TSH #### [facility] [address] [address] [address] Preethi Samsondium [Moles/Vol]140 mmol/WVbrflt074-872Lgm [facility] Comment on above:Performed By: #### LIPID, BMP, ALT, TSH #### [facility] [address] [address] [address] Preethi SimonUrea nitrogen [Mass/Vol]13.0 mg/dLNormal7.0-18.0The [facility] HospitalComment on above:Performed By: #### LIPID, BMP, ALT, TSH #### [facility] [address] [address] [address] Preethi Grigsby nitrogen/Creatinine [Mass ratio]17.8 mg/mgNormalThe [facility] HospitalComment on above:Performed By: #### LIPID, BMP, ALT, TSH #### [facility] [address] [address] [address] Preethi Barnett 17-73-1394WDF [Catalytic activity/Vol]27 U/MJbqlbe45-36Jif [facility] HospitalComment on above:Performed By: #### LIPID, BMP, ALT, TSH #### [facility] [address] [address] [address] Preethi Bull 59-02-3929NPP8.336 uIU/mLNormal0.358-3.740[facility] HospitalComment on above:Performed By: #### LIPID, BMP, ALT, TSH #### [facility] [address] [address] [address] Preethi SimonVITAMIN B12on 97-25-7534Bkzrsyvgc (Vitamin B12) [Mass/Vol]520.0 pg/aSIszmjy163.0-986.0The [facility] HospitalComment on above:Performed By: #### RHONA, ERUR #### [facility] [address] [address] [address] Preethi SimonVITAMIN D 25 OHon 52-93-7830WML D 25-OH42.7 ng/mLNormalHenry County HospitalComment on above:Performed By: #### ADRIAN MELGOZAR #### [facility] [facility] [address] [place] [address] Dr. Preethi Conroy D RANGESSEE [facility] HospitalComment on above: Result Comment: <20 ng/mL Vit D deficient 20 - <30 ng/mL Vit D insufficient 30 - 100 ng/mL Vit D sufficient >100 ng/mL Potential ToxicityPerformed By: #### RHONA, ERUR #### [facility] [address] [place] [address] Dr. Preethi SimonMG MAMM SCREEN 3D KIP CADon 29-03-8019XT MAMM SCREEN 3D KIP CAD Patient: MERISSA LOVE I. Exam Date: 07/01/2022 : 1950 Gender:F Ordering : DR MARCO CASTRO Admission #: [id number] Family : Order #: [id number] CLICK HERE TO VIEW EXAM RADIOLOGY REPORT PROCEDURE: MAMMOGRAM SCREENING 3D BILATERAL CAD COMPARISON: MG MAMM SCREEN KIP W CAD, 06/06/2020. MG MAMM SCREEN 3D KIP CAD, 06/13/2021. INDICATIONS: Screening mammography Calculator Name NCI Breast Cancer Risk Assessment Tool 5 Year Breast Cancer Risk 1.60% Lifetime Breast Cancer Risk 4.10% Personal Breast Cancer No Personal Ovarian Cancer No Treatments None Family Cancers Aunt-maternal with breast cancer at age 70; Brother with lymphoma cancer at age 56; Father with prostate cancer at age 80. LOCATION: [facility] BREAST COMPOSITION: Scattered areas fibroglandular density. FINDINGS: DIAGNOSTIC CATEGORY 2--BENIGN FINDING. NO CHANGE FROM COMPARISON. Scattered benign-appearing calcifications are present. Scattered benign-appearing lymph nodes are present. RIGHT BREAST: No significant suspicious finding. LEFT BREAST: No new significant suspicious finding. Stable area of focal asymmetry upper outer quadrant, mid breast. Benign appearing well-circumscribed nodules possibly intramammary lymph nodes and moles. RECOMMENDATIONS: ROUTINE MAMMOGRAM AND CLINICAL EVALUATION IN 12 MONTHS. PLEASE NOTE: A NORMAL MAMMOGRAM DOES NOT EXCLUDE THE POSSIBILITY OF BREAST CANCER. A CLINICALLY SUSPICIOUS PALPABLE LUMP SHOULD BE BIOPSIED. Dictated by: Omari Lobato MD on 07/01/2022 at 11:24 Approved by: Omari Lobato MD on 07/01/2022 at 11:26[facility] CREATININEon [id number] [Mass/Vol]0.72 mg/dLNormal0.55-1.02The [facility] HospitalComment on above:Performed By: #### ADRIAN MELGOZAR #### [facility] [address] [place] [address] Dr. Preethi HowardGFR-AF COOK ISLANDER>60Normal>=60The [facility] Hospitalment on above:Performed By: #### ADRIAN MELGOZAR #### [facility] [address] [place] [address] Dr. Preethi HowardGFR-NON AF [place]OOK ISLANDER>60Normal>=60The [facility] on above:Performed By: #### RHONA ERUR #### [facility] [address] [place] [address] Dr. Preethi Jernigan ABD/PELV WO W CONon 70-19-7584HM ABD/PELV WO W CONEXAMINATION: CT ABD/PELV WO W CON HISTORY: Benign neoplasm of adrenal gland COMPARISON: CT abdomen 09/11/2016 TECHNIQUE: Axial, Coronal, and Sagittal images were created IV contrast. Dose reduction techniques were achieved by using automated exposure control and/or adjustment of mA and/or kV according to patient size and/or use of iterative reconstruction technique. FINDINGS: LUNG BASES: No visible pulmonary or pleural disease. LIVER: No enlargement, atrophy, suspicious density, or significant focal lesion. BILIARY: Cholecystectomy. PANCREAS: No lesion, fluid collection, or abnormal duct dilatation. SPLEEN: No enlargement or focal lesion. ADRENALS: 2 adjacent left adrenal masses with combined measurements of 2.8 x 1.8 x 1.5 cm. Both contain areas of fat density compatible with benign adenomas. Absolute washout: 69% which is highly suggestive of adrenal adenoma. Relative washout: 69% which is highly suggestive of an adrenal adenoma. KIDNEYS: No mass, obstruction, or calcification. BOWEL/MESENTERY: No visible mass, obstruction, or bowel wall thickening. AORTA/VASCULAR: No aneurysm or dissection. RETROPERITONEUM: No mass or adenopathy. LYMPH NODES: No adenopathy. URINARY BLADDER: No visible focal wall thickening, lesion, or calculus. PELVIC ORGANS: Heterogeneous lobular uterus containing numerous calcifications favoring leiomyomas. Posterior to the uterus and abutting its posterior margin is a 4.8 cm mass containing calcifications and displacing the sigmoid colon laterally, likely a leiomyoma. ABDOMINAL WALL: No mass or hernia. BONES: No bony lesion or fracture. OTHER: Negative. IMPRESSION: 1. Left adrenal mass is cystic with a benign adrenal adenoma. 2. Soft tissue mass posterior to the uterus displacing the sigmoid colon suspected to be a large exophytic leiomyoma (there appears to be several leiomyomas within the uterus). No prior CT imaging of this area. Consider ultrasound for further evaluation of uterus. Electronically authenticated by: JAKE DILLON Date: 2022-04-23 17:45[facility] Vital Signs Date TimeVital SignValuePerforming WtnepwvtlGykznmts81-15-3497 10:37-0400Body nquzqj668.8 cmMarco Castro DO Work Phone: Orph[employer]Occqstbfmj30-59-1158 10:37-0400Body mass index (BMI) [Ratio]29.57 kg/g0Nhmnveekaleb Castro DO Work Phone: [employer] SystemsSaint Francis Hospital & Health ServicesTbvspclqsb07-33-8147 10:37-0400Body ckogir42.38 kgMarco Castro DO Work Phone: noSaint Francis Hospital & Health ServicesIztdjtewqz21-51-2381 10:37-0400Diastolic blood zdumyjol13 mm[Hg]Marco Castro DO Work Phone: [facility] HospitalYkkeafslaa33-27-1763 10:37-0400Systolic blood grxeyixo105 mm[Hg]Marco Castro DO Work Phone: [facility] HospitalNwptfphwns88-86-7229 09:58-0400Body rynsrx933.56 [facility]04-07-2025 09:58-0400Diastolic blood pressure 96 mm[Hg][facility]04-07-2025 09:58-0400Heart rate67 /min [facility]04-07-2025 09:58-0400Respiratory rate12 /min [facility]04-07-2025 09:58-6425GwK4% (BldA) [Mass fraction]97 %[facility]04-07-2025 09:58-0400Systolic blood auxdmcfm124 mm[Hg][facility]01-23-2025 11:22-0500 Body nnonht163.56 cmReg[facility]01-23-2025 11:22-0500Body mass index (BMI) [Ratio]30 kg/x5VezruhjxfRegency Hospital [facility]01-23-2025 11:22-0500Body .37 kgRegency Hospital [facility]01-23-2025 11:22-0500Diastolic blood afcsjpxq62 mm[Hg][facility] 10-21-2024 11:22-0500Heart rate75 /minReg[facility] 10-21-2024 11:22-4871ToE7% (BldA) [Mass fraction]97 %[facility]01-23-2025 11:22-0500Systolic blood wfajiyzx035 mm[Hg][facility]01-15-2025 09:35-0500Body kckpec673.56 cmRegency Hospital [facility]01-15-2025 09:35-0500Body mass index (BMI) [Ratio]30.4 kg/m2 [facility]01-15-2025 09:35-0500Body .45 kg [facility]01-15-2025 09:35-0500Diastolic blood wjltcued93 mm[Hg][facility]01-15-2025 09:35-0500Heart rate75 /min [facility]01-15-2025 09:35-0500Respiratory rate14 /min [facility]01-15-2025 09:35-8400MoE9% (BldA) [Mass fraction]99 %[facility]01-15-2025 09:35-0500Systolic blood ibniztbz936 mm[Hg][facility]06-11-2024 13:09-0400 Blood Pressure LocationJENNIFER RK [facility]06-11-2024 13:09-0400Body prhauinaewy34.6 [degF]NERIS BOLESRY [facility]06-11-2024 13:09-0400Diastolic blood mdhdoyas41 mm[Hg]NERIS RK [facility]06-11-2024 13:09-0400Heart rate72 /minOTTONIELNNIFER RK [facility]06-11-2024 13:09-0400Respiratory rate16 /minOTTONIELNNIFER RK [facility]06-11-2024 13:09-0400Systolic blood kponjjed529 mm[Hg]NERIS RK [facility]05-30-2024 09:15-0400Diastolic blood kovobftv04 mm[Hg]DO Ruddy Ball Work Phone: [facility]05-30-2024 09:15-0400 Heart rate80 /minDO Ruddy Ball Work Phone: [facility]05-30-2024 09:15-0400 Respiratory rate16 /minDO Ruddy Reyes Work Phone: [phone]05-30-2024 09:15-0400 SaO2% (BldA) [Mass fraction]96 %DO Ruddy Reyes Work Phone: [phone]73[facility]05-30-2024 09:15-0400 Systolic blood ykzhwqfo553 mm[Hg]DO Ruddy Ball Work Phone: [phone]05-30-2024 08:35-0400 Body kwomfdselcv69 [degF]DO Ruddy Reyes Work Phone: [phone])[address]05-30-2024 08:10-0400 Inhaled oxygen flow rate8 L/AlistairO Ruddy Reyes Work Phone: [phone]05-30-2024 07:14-0400 Body jktuul275.1 cmDO Ruddy Exuru! Work Phone: [phone]05-30-2024 07:14-0400 Body mass index (BMI) [Ratio]29.1 kg/m2DO Ruddy Reyes Work Phone: [phone]05-30-2024 07:14-0400 Body kpualw63.37 kgDO Ruddy Reyes Work Phone: [phone]02-05-2024 09:43-0500 Diastolic blood ejopahtb74 mm[Hg]Brooke GALARZA [facility]02-05-2024 09:43-0500Heart rate67 /minPatrick [employer] [facility]02-05-2024 09:43-0500Respiratory rate16 /minPatrick GALARZA [facility]02-05-2024 09:43-0500Systolic blood usvxdbwj455 mm[Hg]Brooke GALARZA [facility]12-06-2023 10:30-0500Body iupcwi605.1 cmOmari Cash Other [employer] Other 12-06-2023 10:30-0500Body mass index (BMI) [Ratio] 29.95 kg/u7Jncml Cash Other [employer] Other 12-06-2023 10:30-0500Body .65 kgDaadrian Cash Other [employer] Other 12-06-2023 10:30-0500Diastolic blood lmfncenr77 mm[Hg] Omari Castrejon Other [employer] Other 12-06-2023 10:30-4771AwD5% (BldA) [Mass fraction]96 % Omari Castrejon Other [employer] Other 12-06-2023 10:30-0500Systolic blood kcpduwue536 mm[Hg] Omari Castrejon Other [employer] Other 10-04-2023 11:00-0400Body .1 cmBenjamin Ball Other [employer] Other 10-04-2023 11:00-0400Body mass index (BMI) [Ratio] 29.02 kg/r1Vjcicrpq Ball Other [employer] Other 10-04-2023 11:00-0400Body otfpql67.11 kgBenjamin Ball Other [employer] Other 10-04-2023 11:00-0400Diastolic blood mm[Hg] Ruddy Ball Other [employer] Other 10-04-2023 11:00-0400Respiratory rate12 /minBereginakyle Reyes Other [facility] [employer] Other 10-04-2023 11:00-0400Systolic blood itdbijwn279 mm[Hg] Ruddy Reyes Other [facility] [employer] Other 09-25-2023 11:29-0400Diastolic blood sdfixvhl34 mm[Hg] Brooke GALARZA [facility]09-25-2023 11:29-0400Heart rate68 /minPatrick GALARZA [facility]09-25-2023 11:29-0400Mean blood xtzewlxc316 mm[Hg]Brooke GALARZA [facility]09-25-2023 11:29-0400Respiratory rate16 /minPatrick GALARZA [facility]09-25-2023 11:29-0400Systolic blood knhiimvh578 mm[Hg]Brooke GALARZA [facility]09-25-2023 11:02-0400Blood Pressure LocationPatrick GALARZA [facility] [place] [address]-25-2023 11:02-0400Diastolic blood awylxrnp40 mm[Hg]Brooke GALARZA [facility] [place] [address]-25-2023 11:02-0400Heart rate89 /minPatrick GALARZA [facility]09-25-2023 11:02-0400Respiratory rate16 /minGriffintricarmando GALARZA [facility]09-25-2023 11:02-0400Systolic blood vpcxjqhi236 mm[Hg]Brooke GALARZA [facility]08-21-2023 10:00-0400Body meyqny713.1 cmDaadrian Castrejon Other [employer] Other 08-21-2023 10:00-0400Body mass index (BMI) [Ratio] 29.62 kg/o5YujlgOmari Castrejon Other [employer] Other 08-21-2023 10:00-0400Body sehjyd72.74 kgDaadrian Castrejon Other [employer] Other 08-21-2023 10:00-0400Diastolic blood qfrnajyk20 mm[Hg] Omari Castrejon Other [employer] Other 08-21-2023 10:00-9318WoL7% (BldA) [Mass fraction]97 % Omari Castrejon Other [employer] Other 08-21-2023 10:00-0400Systolic blood ondzreso205 mm[Hg] Omari Castrejon Other [employer] Other 05-31-2023 15:45-0400Body ygemkc978.1 cmBenkyle Reyes Other [employer] Other 05-31-2023 15:45-0400Body mass index (BMI) [Ratio] 29.05 kg/e1Ekxhooso Ball Other [employer] Other 05-31-2023 15:45-0400Body .2 kgBenjamin Ball Other [employer] Other 05-31-2023 15:45-0400Diastolic blood cexsahsv92 mm[Hg] Ruddy Ball Other [employer] Other 05-31-2023 15:45-0400Respiratory rate12 /minBenjamin Ball Other [employer] Other 05-31-2023 15:45-0400Systolic blood amdhjuqm145 mm[Hg] Ruddy Ball Other [employer] Other 05-05-2023 12:15-0400Body .1 cmBenjamin Ball Other [employer] Other 05-05-2023 12:15-0400Body mass index (BMI) [Ratio] 30.32 kg/y1Gvakzqfl Ball Other [employer] Other 05-05-2023 12:15-0400Body hlqzob20.65 kgBenjamin Ball Other [employer] Other 05-05-2023 12:15-0400Diastolic blood oovcllqi34 mm[Hg] Ruddy Ball Other [employer] Other 05-05-2023 12:15-0400Systolic blood mm[Hg] Ruddy Ball Other [employer] Other 05-02-2023 09:45-0400Body scokfp757.1 cmBenjamin Ball Other [employer] Other 05-02-2023 09:45-0400Body mass index (BMI) [Ratio] 30.67 kg/z5Szyopxrc Ball Other [employer] Other 05-02-2023 09:45-0400Body zfbfro00.6 kgBenjamin Ball Other [employer] Other 05-02-2023 09:45-0400Diastolic blood tkvafodb65 mm[Hg] Ruddy Ball Other [employer] Other 05-02-2023 09:45-2816WnW8% (BldA) [Mass fraction]93 % Ruddy Ball Other [employer] Other 05-02-2023 09:45-0400Systolic blood rzdtuvor221 mm[Hg] Ruddy Ball Other [employer] Other 04-12-2023 12:00-0400Body dklwce834.1 cmOmari Cash Other [employer] Other 04-12-2023 12:00-0400Body mass index (BMI) [Ratio] 30.78 kg/g8Yyshd Cash Other [employer] Other 04-12-2023 12:00-0400Body ouhqvt10.92 kgOmari Castrejon Other [employer] Other 04-12-2023 12:00-0400Diastolic blood nnehohsm76 mm[Hg] Omari Castrejon Other [employer] Other 04-12-2023 12:00-7909OaN4% (BldA) [Mass fraction]97 % Omari Castrejon Other [employer] Other 04-12-2023 12:00-0400Systolic blood ctibadcs395 mm[Hg] Omari Castrejon Other [employer] Other 02-16-2023 16:45-0500Body camdnh696.1 cmDaadrian Cash Other [employer] Other 02-16-2023 16:45-0500Body mass index (BMI) [Ratio] 29.28 kg/g6Ajnar Cash Other [employer] Other 02-16-2023 16:45-0500Body mlvgvzitqhh96.6 [degF]Omari Cash Other [employer] Other 02-16-2023 16:45-0500Body wwibwm14.83 kgDaadrian Cash Other [employer] Other 02-16-2023 16:45-0500Diastolic blood kuomgcaf23 mm[Hg] Omari Castrejon Other [employer] Other 02-16-2023 16:45-8851QhP6% (BldA) [Mass fraction]94 % Omari Castrejon Other [employer] Other 02-16-2023 16:45-0500Systolic blood vvolxgth515 mm[Hg] Omari Castrejon Other [employer] Other 02-14-2023 09:45-0500Body wdjiaw603.1 cmBenjamin Ball Other [employer] Other 02-14-2023 09:45-0500Body mass index (BMI) [Ratio] 29.95 kg/w7Osmmvjut Ball Other [employer] Other 02-14-2023 09:45-0500Body xpytld03.65 kgBenjamin Ball Other [employer] Other 02-14-2023 09:45-0500Diastolic blood fevseiiq64 mm[Hg] Ruddy Ball Other [employer] Other 02-14-2023 09:45-0500Respiratory rate12 /minBenjamin Ball Other [employer] Other 02-14-2023 09:45-0500Systolic blood oebqyjdx128 mm[Hg] Ruddy Ball Other [employer] Other 12-15-2022 10:45-0500Body jhuxci957.1 cmDaadrian Castrejon Other [employer] Other 12-15-2022 10:45-0500Body mass index (BMI) [Ratio] 29.78 kg/x1UagnyOmari Castrejon Other [employer] Other 12-15-2022 10:45-0500Body .8 [degF]Omari Castrejon Other [employer] Other 12-15-2022 10:45-0500Body .19 kgDaadrian Castrejon Other [employer] Other 12-15-2022 10:45-0500Diastolic blood mm[Hg] Omari Cash Other [employer] Other 12-15-2022 10:45-1786GuG0% (BldA) [Mass fraction]98 % Omari Castrejon Other [employer] Other 12-15-2022 10:45-0500Systolic blood xgduyrws220 mm[Hg] Omari Castrejon Other [employer] Other 08-15-2022 11:00-0400Blood Pressure LocationPaInofile [facility] 08-15-2022 11:00-0400Diastolic blood wohdsjud56 mm[Hg] [employer] [facility] 08-15-2022 11:00-0400Heart rate74 /minInstagarage [facility] 08-15-2022 11:00-0400Respiratory rate16 /minPaInofile [facility] 08-15-2022 11:00-0400Systolic blood mm[Hg] [employer] [facility] 07-12-2022 16:00-0400Body .1 cmDavid Hykes Other [employer] Other 07-12-2022 16:00-0400Body mass index (BMI) [Ratio] 29.12 kg/y7Hvwqo Andria Other [employer] Other 07-12-2022 16:00-0400Body .38 kgDavid Andria Other [employer] Other 06-30-2022 12:15-0400Body darrcw990.1 cmDaadrian Cash Other [employer] Other 06-30-2022 12:15-0400Body mass index (BMI) [Ratio] 29.28 kg/t5Xtgtv Cash Other [employer] Other 06-30-2022 12:15-0400Body oqeltmlhlav31.5 [degF]Omari Castrejon Other [employer] Other 06-30-2022 12:15-0400Body aokfmn43.83 kgDaadrian Cash Other [employer] Other 06-30-2022 12:15-0400Diastolic blood bnumvvfc19 mm[Hg] Omari Castrejon Other [employer] Other 06-30-2022 12:15-9468QvV4% (BldA) [Mass fraction]99 % Omari Castrejon Other [employer] Other 06-30-2022 12:15-0400Systolic blood eefrexpo472 mm[Hg] Omari Castrejon Other [employer] Other 06-02-2022 10:30-0400Body mvyqsc589.1 cmDavid Andria Other [employer] Other 06-02-2022 10:30-0400Body mass index (BMI) [Ratio] 28.95 kg/p4Fulor Hykes Other [employer] Other 06-02-2022 10:30-0400Body tplugq67.93 kgDavid Hykes Other [employer] Other 04-12-2022 14:45-0400Body nifdzx398.1 cmDavid Hykes Other [employer] Other 04-12-2022 14:45-0400Body mass index (BMI) [Ratio] 29.12 kg/y2Abdqm Hykes Other [employer] Other 04-12-2022 14:45-0400Body qkqesu57.38 kgDavid Hykes Other [employer] Other 02-08-2022 14:30-0500Body hsbiop564.1 cmDavid Hykes Other [employer] Other 02-08-2022 14:30-0500Body mass index (BMI) [Ratio] 28.79 kg/y8Psbgo Hykes Other [employer] Other 02-08-2022 14:30-0500Body plpgba96.47 kgDavid Hykes Other [employer] Other 01-04-2022 12:45-0500Body vxxiyh876.1 cmDavid Cash Other [employer] Other 01-04-2022 12:45-0500Body mass index (BMI) [Ratio] 29.62 kg/b8Duzlh Cash Other [employer] Other 01-04-2022 12:45-0500Body ysrdrairlsy82.6 [degF]Omari Castrejon Other [employer] Other 01-04-2022 12:45-0500Body thohlh82.74 kgDaadrian Cash Other [employer] Other 01-04-2022 12:45-0500Diastolic blood mm[Hg] Omari Castrejon Other [employer] Other 01-04-2022 12:45-9521QvF1% (BldA) [Mass fraction]98 % Omari Cash Other [employer] Other 01-04-2022 12:45-0500Systolic blood wbzdiunk941 mm[Hg] Omari Castrejon Other [employer] Other Encounters Encounter DateEncounter TypeCare ProviderFacilityStart: 86-64-8569szphuqnwxxlázaro GALARZAFacility:[place] tart: 06-27-2025 End: 51-89-1023tsedezhcisRqlhmms R WATERSFacility:[place]Start: 06-27-2025 End: 28-86-6245Fyfidde encounter procedureBrooke GALARZA [facility] José Miguel start: 05-02-2025 End: 88-03-8184otwqhzaazqLcybywu R WATERSFacility:EU [place]Start: 05-02-2025 End: 02-06-8284Wuxmspo encounter procedureBrooke GALARZA [facility] José Miguel start: 03-16-2025 End: 77-62-1854fxhuhegqcyOHGVTFP D BRUNERNot AvailableStart: 03-16-2025 End: 60-08-3645Aegqab outpatient visit 25 minutesMarco Castro DO Work Phone: noms [facility] OBComment on above:Atrophic vaginitis (Primary Dx); Atypical glandular cells of undetermined significance (DEZ) on cervical Pap smear; Breast cancer screening by mammogram; Hormone replacement therapy; Urinary urgencyStart: 03-03-2025 End: 85-07-9447Ojflvfshavonne Madrid MD Work Phone: noms [facility] DERMStart: 03-03-2025 End: 80-12-0873Pyidcushavonne Madrid MD Work Phone: noms [facility] DERMStart: 03-03-2025 End: 51-29-1061udumamxjecSOCIO Marcie PETITTINot AvailableStart: 03-03-2025 End: 11-36-4627Rprwkv outpatient visit 15 minutesEmily Marcie Madrid MD Work Phone: noms [facility] DERMComment on above:Tinea pedis of left foot (Primary Dx); Syringoma of eyelid; Lentigines; Seborrheic keratosis, inflamed; Angioma of skin; Seborrheic keratosis; Melanocytic nevus of trunk; EIC (epidermal inclusion cyst); Neoplasm of unspecified behavior of bone, soft tissue, and skinStart: 01-03-2025 End: 56-72-1931hscewggbmpBxgfvkvwtMemorial Health System Work Phone: Start: 01-03-2025 End: 94-33-4195Fjajchl encounter [facility]At[facility] Work Phone: Start: 10-21-2024 End: 82-47-9547Kqhkhyu encounter procedureAt[facility] Work Phone: Start: 10-13-2024 End: 38-92-7111Qcvvcnx encounter procedureAt[facility] Work Phone: Start: 18-31-3537Pvoypha encounter procedureBlanchard Valley Health Systemtart: 03-30-2024 End: 24-35-0622ohzggsfjjuDRJCU A PETNELINolizy AvailableStart: 03-09-2024 End: 89-16-5657Tkyczku encounter procedureJEKELLEN Malagon RK [facility] start: 02-26-2024 End: 74-56-0394Nuvdwpqfe to same day surgery [facility] Work Phone: [facility] CenterStart: 02-26-2024 End: 19-30-3157qybaxypkqlWJ [facility] Work Phone: [facility] Work Phone: Start: 11-11-2023 End: 59-11-3251Oirqpkl encounter procedureBrooke GALARZA [facility] Start: 11-03-2023 End: 01-25-3058Hmhupyc encounter procedurePameghna GALARZA [facility] start: 09-25-2023 End: 59-56-3658nlpvnrwhjlSbfognmj Eric Other [employer] Other Start: 77-39-6460Epdsgwk evaluation of patient and reportRuddy Reyes Medical ClinicStart: 91-82-7917Scizbhmlg encounter [facility] Medical ClinicStart: 45-68-3434Tarojh outpatient visit 25 minutesDavid [facility] OutPtStart: 09-03-2023 End: 76-81-4616Djhkjls encounter procedureDO Ruddy Reyes Work Phone: [facility] Work Phone: Start: 09-03-2023 End: 23-71-6883pmqvcuzyfhSR Ruddy Reyes Work Phone: [facility] [employer] Other Start: 08-20-2023 End: 53-42-3440ddmtamxqskIpgfdlsf Ball Other [employer] Other Start: 89-76-7889Pjmqbvjvv encounterBenjamin BallFPG [facility] ClinicStart: 07-18-2023 End: 23-89-6717liqphowrfmHfkrrbut Ball Other [facility] [employer] Other Start: 44-41-3901Yxfdyumou encounterBenjamin BallFPG [facility] ClinicStart: 07-16-2023 End: 84-47-2573oyvxlkjyujNnnwxzar Ball Other [facility] [employer] Other Start: 73-75-9547Svfsrgfya encounterBenjamin BallFPG [facility] ClinicStart: 07-14-2023 End: 74-82-3703uilcpqfkgxWyftw Morris Other [facility] [employer] Other Start: 95-11-8927Yqujxlelp encounterDavivale Castrejon [facility] SouthStart: 07-02-2023 End: 58-03-7178awusicsbbvQcftfdiw Ball Other [employer] Other Start: 18-71-5836Zmisdtz encounter procedureBenjamin BallFPG [facility] ClinicStart: 06-25-2023 End: 04-54-3029iplnitqchuEsjfimcg BallFacility:[facility] Start: 06-25-2023 End: 04-56-3230Wepskxdb ReferredDO Ruddy Reyes Work Phone: [facility] [place] Work Phone: Start: 06-23-2023 End: 94-83-4334Stxfocf encounter procedurePameghna Oc GALARZA [facility] [place] start: 20-55-8011Oloppy outpatient visit 25 minutes Omari [facility]Start: 05-19-2023 End: 84-86-5533Htnlmue encounter procedureDO Ruddy Reyes Work Phone: [facility] Work Phone: Start: 05-19-2023 End: 92-82-0728kejkllnlhsCM Ruddy Reyes Work Phone: [employer] Other Start: 04-23-2023 End: 74-55-6595vmwtayiiclIiucb Morris Other [employer] Other Start: 64-75-7558Hncjecbcj encounterDaadrian Cash [facility] HospitalStart: 03-19-2023 End: 67-46-8938qcqibqlzxmJapvcyig Ball Other [employer] Other Start: 58-57-0637Trroawfrp encounterBenjamin BallFPG [facility] ClinicStart: 03-05-2023 End: 12-09-7514uyoanqjwwzBffdxesq Ball Other [employer] Other Start: 32-89-5443Armtqixhc encounterBenjamin BallFPG [facility] Medical ClinicStart: 02-26-2023 End: 86-97-5213hpdkjfdlhdTzdsuvho Ball Other [employer] Other Start: 78-57-1611Spkrro outpatient visit 15 minutes Ruddy [facility]FP[facility] ClinicStart: 02-25-2023 End: 30-23-4615quyfmygcrsKvxkvxzt Ball Other [employer] Other Start: 63-71-6789Exnggjfqz encounterBenjamin BallFPG [facility] ClinicStart: 02-18-2023 End: 19-67-0512etrzxzoszyEtldu Cash Other [employer] Other Start: 73-17-1016Kqirhnult encounterDavivale Cash [facility]Start: 02-11[facility]2023 End: 45-66-4030qkfdmeuwwwYL RUDDY BALLFacility:N3Ujykp: 02-10-2023 End: 11-81-9330feuamtlusuThxuhvmw Ball Other [employer] Other Start: 44-08-1036Cwewlcfcm encounterBenjamin BallFPG [facility] ClinicStart: 02-04-2023 End: 76-41-6118orekgjfiyoVG KASH JOHN .Facility:M5Rquzi: 01-31-2023 End: 58-35-3240wsjwsxaihvCfqaoxps Ball Other [employer] Other Start: 82-76-3656Zhbobe outpatient visit 15 minutes Ruddy [facility] ClinicStart: 01-30-2023 End: 98-47-8083tdnxppguydDJDAT [facility] [employer] Other Start: 09-89-7520Qxuwjtafd encounterBenjamin BallFP[facility] ClinicStart: 01-29-2023 End: 02-31-0847etuqbknxarVwvizidr Ball Other [employer] Other Start: 04-37-9026Lgrkasnuj encounterBenjamin BallFP[facility] ClinicStart: 01-28-2023 End: 21-00-7250iodbfskjwiKcmapsgm Ball Other [employer] Other Start: 07-24-1403Gqwuke outpatient visit 15 minutes Ruddy [facility]FP[facility] ClinicStart: 01-27-2023 End: 37-80-0822xtzkgkqwgnTG ARY DUNCAN .Facility:L9Gwnlu: 01-26-2023 End: 29-23-4847pnvhzxaztqWHROF PARKERFacility:Q8Kpyhv: 01-25-2023 End: 90-36-1980gqudstyyevZYKAKA RODRIGUEZ .Facility:D1Slkkl: 01-24-2023 End: 79-97-7745wlvqxvwlcvKkfqihby Ball Other [employer] Other Start: 73-90-1571Ayjoasiyc encounterBenjamin BallFP[facility] ClinicStart: 01-22-2023 End: 45-59-9503nkxnqhifqhFdgifzjp Ball Other [employer] Other Start: 70-87-2085Wfimllyhe encounterBenjamin BallFPG [facility] ClinicStart: 09-70-2315ldimwmoeanSL RUDDY REYESFacility:X7Tusfc: 01-08-2023 End: 88-69-1352wwqxizrqhyCbhjd Morris Other [employer] Other Start: 03-42-5680Oetmot outpatient visit 25 minutes Omari CastrejonTuscarawas Hospital SouthStart: 01-06-2023 End: 80-22-9177wogdabnjddYvmtwxno Ball Other [employer] Other Start: 88-41-7308Sfdzuj outpatient visit 15 minutes Ruddy [facility]FP[facility] ClinicStart: 12-23-2022 End: 08-11-4529gnqprlqlndCuhxr Morris Other [employer] Other Start: 98-19-9205Mnzldcxey encounterDavid Cash [facility]Start: 12-20-2022 End: 77-22-2453zzryvnkphhGlwbtyjo Ball Other [employer] Other Start: 39-17-2254Ukecgckso encounterBenjamin BallFPG [facility] ClinicStart: 12-12-2022 End: 37-50-1522tjshvjbbjwEtotp Morris Other [employer] Other Start: 82-40-6397Jyglwjbze encounterDavivale [facility] Centerart: 11-14-2022 End: 29-12-9999Bbmqxek encounter procedureDO Ruddy Eric Work Phone: [facility] Work Phone: Start: 11-14-2022 End: 69-41-3429vejrccqqinSH Ruddy Reyes Work Phone: [facility] Work Phone: Start: 05-80-3511Ngpdww outpatient visit 25 minutes [facility]ari [facility]: 11-12-2022 End: 09-57-1770abjndqsapuEllnopjt Ball [facility] [employer] Other Start: 77-19-4741Krlwcz outpatient visit 25 minutes Ruddy EricFPG [facility] ClinicStart: 09-27-2022 End: 91-91-5424crxelvbxmgOprpl Morris Other [employer] Other Start: 57-12-4734Crzgnvrmx encounterDavivale [facility] Centerart: 98-38-8797Svtqjr outpatient visit 25 minutesDavivale CashSelect [facility] SouthStart: 09-12-2022 End: 24-76-3409nxesgfduktGF Ruddy Reyes Work Phone: [facility] Work Phone: Start: 09-12-2022 End: 53-05-6467Mvmyjpd encounter procedureDO Ruddy Reyes Work Phone: [facility] LabStart: 08-06-2022 End: 18-35-4699yeynildiofBqfnd Cash Other [employer] Other Start: 69-83-8513Ydybelcuh encounterDaadrian Cash [facility] SouthStart: 07-17-2022 End: 19-25-1353xmaccvevhcAZ RUDDY REYESFacility:E5Yimgp: 19-62-4519Tvdvl health examinationDaadrian Castrejon Other [employer] Other Start: 07-01-2022 End: 47-15-8057lzlbavrkomNK MARCO CASTROFacility:F8Itprd: 05-15-2022 End: 58-16-3633vguzookouaUhiuj Morris Other [employer] Other Start: 08-46-5057Vsdmfqwyd encounterDaadrian [facility] SouthStart: 05-13-2022 End: 07-38-2026Fxgdxyx encounter procedureBrooke GALARZA [facility] start: 04-23-2022 End: 72-94-1441hdozkrbkkqOC BROOKE GALARZA .Facility:R1Qwnnr: 04-15-2022 End: 00-33-5627tpahcckfgtDuyfo Hykes Other [employer] Other Start: 39-91-8661Gemwwvlna encounterDavid HykesFPG GastroenterologyStart: 04-09-2022 End: 53-83-8601xyqqnhzrupWgobm Hykes Other [employer] Other Start: 60-28-5219Nmcwdc outpatient visit 25 minutes Omari Pérez GastroenterologyStart: 03-28-2022 End: 63-80-8007qjfgjrvuhwOhwwx Cash Other [employer] Other Start: 40-14-2170Lvdjiw outpatient visit 25 minutes Omari CastrejonSheltering Arms HospitalStart: 02-28-2022 End: 63-51-0977calktbeswkKwpfs Hykes Other [employer] Other Start: 06-57-0761Lubkuw outpatient visit 25 minutes Omari Pérez GastroenterologyStart: 02-14-2022 End: 35-87-4780nuevthbnxbWcsfj Hykes Other [employer] Other Start: 76-24-6616Sesimzwgt encounterDavid HyvenusFPG GastroenterologyStart: 02-06-2022 End: 56-70-3760kubrjqlbkhTmwyn Cash Other [employer] Other Start: 35-08-4265Bryofdhev encounterDavid Cash [facility]Start: 01-08-2022 End: 83-83-9754jqdofbumxoYrxqd Hykes Other [employer] Other Start: 57-77-4178Kjouff outpatient visit 25 minutes Omari Pérez GastroenterologyStart: 11-29-2021 End: 58-18-1550oqvqnythbsTkpfn Hykes Other [employer] Other Start: 72-90-1219Vzpghshnq encounterDaadrian AndriaLOISLesli GastroenterologyStart: 11-06-2021 End: 72-67-7817xfdbibjynhDgvww Andria Other [place] [employer] Other Start: 30-04-7062Iqobsq outpatient visit 25 minutes Omari Beto GastroenterologyStart: 10-02-2021 End: 20-18-1925pbmubfmnuwPvgyc Morris [facility] [employer] Other Start: 06-99-6877Ivopnd outpatient visit 25 minutes Omari CsatrejonTuscarawas Hospital South Procedures DateProcedureProcedure DetailPerforming ClinicianStart: 82-45-6224FIKD / NAIL BIOPSYEmbasil Madrid MD Work Phone: Start: 37-75-2815RMOCEOQYQXN SKIN LESIONEmbasil Madrid MD Work Phone: Start: 71-97-0769VhbfumuirtalZF Ruddy Reyes Work Phone: Start: 80-55-4889Hftbezuuc for osteoporosisRigovale Cash Other Start: 76-86-3856Dmcis screeningRigovale Cash Other Start: 19-65-5008Kho-surgery evaluationBestalenavale Castrejon Other Start: 67-91-0955Xpetunmxlafu cardiovascular examinationRigovale Cash Other Start: 52-00-3279Ubrfaikujtql pulmonary examination Omari Castrejon Other Start: 31-13-8517Fuigpnlzgjkalzxez with dilation of urethral strictureClintonk GALARZA Start: 88-53-1229Gtkperqbmjseakxyr with dilation of urethral stricturePatrick GALARZA Start: 74-50-7221CziadglcxWvsfezn GEOVANNI Comment on above:Dr. Stockton BrunerCataract care Brooke GALARZA CholecystectomyPameghna GALARZA Depression screeningDavivale Castrejon Other Dilation and curettage of uterusPatrick GEOVANNI Procedure on backPatrick GALARZA Procedure on footPatrick GALARZA Plan of Treatment DateCare ActivityDetailAuthorStart: 04-12-2026 End: 49-08-6828Ohadebr encounter mzytzoeit87/15/2026 10:30 AM EDT Office Visit [facility] [address] [place] [address] Marco Castro DO [address] [place] [address] [facility] OBStart: 03-07-2026 End: 10-48-8485Iuqymqz encounter /09/2026 10:45 AM EDT Office Visit [facility] DERM [address] [place] [address] Kirstin Madrid MD [address] [place] [address] [facility] DERMStart: 08-21-2025 End: 65-99-4921SBW Breast - bilateral screeningBilateral screening mammogram with tomosynthesis Imaging Routine Breast cancer screening by mammogram Expected: 08/21/2025, Expires: 05/16/2026N[facility] HealthcareComment on above: Expected: 08/21/2025, Expires: 05/16/2026Start: 03-16-2025 End: 55-07-8493Swvzmrs encounter fyqjjnspn51/18/2025 10:30 AM EDT Office Visit [facility] [address] [place] [address] Marco Castro, DO [address] [place] [address] NOMEduarda HERNANDEZ OBStart: 02-26-2024 End: 79-01-1759YaqpwzipnBlanchard Valley Health Systemtart: 46-12-0491Kbnbqatcc for malignant neoplasm of colonNOMS HealthcareComprehensive metabolic 2000 panel - Serum or PlasmaRegency Hospital [facility] EastDermatopathology exam Dermatopathology exam Pathology and Cytology Timed Neoplasm of unspecified behavior of bone, soft tissue, and skin Release Upon Ordering for 1 Occurrences starting 03/03/2025[facility] Work Phone: comment on above:Release Upon Ordering for 1 Occurrences starting 03/03/2025IGP,rfxAptima HPV all,16/18,45IGP,rfxAptima HPV all,16/18,45 Pathology and Cytology Routine Atypical glandular cells of undetermined significance (DEZ) on cervical Pap smear Ordered: 03/16/2025[facility] Work Phone: comment on above:Ordered: 03/16/2025Patient Education Know your [facility] Work Phone: Patient [facility] Work Phone: [facility] Immunizations Immunization DateImmunizationNotesCare OplotcagWumolnnu34-77-1311frumjsfyi virus vaccine, unspecified formulationMtmeghna GALARZA [facility] [place] 573000-21-2023Influenza, Seasonal, Quadrivalent, AdjuvantedEmbasil Madrid MD Work Phone: [facility] HospitalNadizffwgn79-00-4819wickzhvpb virus vaccine, split virus (incl. purified surface antigen)Omari Castrejon Other [facility] [employer] Other 759724-86-8214uzqwitefr virus vaccine, unspecified formulationDO Ruddy Reyes Work Phone: [facility]09-07-2022influenza, injectable, quadrivalent, preservative Patrick Madrid MD Work Phone: [facility] HospitalNwohrpuiso74-99-5232vwaxaelzfb, tetanus toxoids and pertussis vaccineKirstin Madrid MD Work Phone: [facility] HospitalPacgjxwigi67-76-3507oagxplyup virus vaccine, split virus (incl. purified surface antigen)Omari Castrejon Other [place] [employer] Other [id number] virus vaccine, unspecified formulationDO [employer] Work Phone: [facility]04-16-2021COVID-19 mRNA, Comirnaty (Pfizer)DO [employer] Work Phone: [facility]04-01-2021SARS-CoV-2 (COVID-19) mRNA BNT-162b2 vaxInstagarage [facility] [place] 03-371363-10-5114MKKVI-79 mRNA, Comirnaty (Pfizer)DO [employer] Work Phone: [facility]09-25-2020influenza virus vaccine, split virus (incl. purified surface antigen)Omari Castrejon Other [place] [employer] Other [id number] virus vaccine, unspecified formulationDO [employer] Work Phone: [facility]09-01-2020influenza virus vaccine, unspecified formulationInstagarage [facility] Lgaiqefe42-18-5742bummmoden, injectable, quadrivalent, preservative Patrick Madrid MD Work Phone: [facility] HospitalMkljrstgrf69-93-2583cfmkrlegw virus vaccine, split virus (incl. purified surface antigen)Omari Castrejon Other [place] [employer] Other 11163742-12-4228bgkyjykpi virus vaccine, unspecified formulationDO [employer] Work Phone: [facility]10-03-2018influenza virus vaccine, split virus (incl. purified surface antigen)Omari Castrejon Other [place] [employer] Other 443560-01-3379osrsenmmz virus vaccine, unspecified formulationPaInofile [facility] [place] 573000-03-2018influenza, high dose seasonal, preservative-freeKirstin Madrid MD Work Phone: [facility] HospitalZukshniwkr16-08-7743ehnwfghdf, seasonal, injectable, preservative freeKirstin Madrid MD Work Phone: [facility] HospitalFizknfxskd62-11-3596gfxiwnjdl virus vaccine, unspecified formulationPaInofile [facility] [place] 704921-06-2017influenza, injectable, quadrivalent, contains preservative Kirstin Madrid MD Work Phone: [facility] HospitalWwdiufxzpq37-05-2301klhjvqtjv virus vaccine, split virus (incl. purified surface antigen)Omari Castrejon Other [place] [employer] Other 025364-73-2665mbmyljppk virus vaccine, unspecified formulationDO Ruddy Reyes Work Phone: [facility]11-15-2016 pneumococcal polysaccharide vaccine, 23 valentDaadrian Castrejon Other [facility]11-01-2016influenza virus vaccine, unspecified formulationInstagarage [facility] [place] 573001-01-2016influenza, high dose seasonal, preservative-freeEmily Petitti MD Work Phone: [facility] HospitalOovbvsymms56-27-7702qkcoxvendelt polysaccharide vaccine, 23 valentBrooke GALARZA [facility] [place] 704921-16-2015pneumococcal conjugate vaccine, 13 valentOmari Castrejon Other [facility]11-16-2015 pneumococcal Conjugate, unspecified formulation; Translations: [Need for prophylactic vaccination against Streptococcus pneumoniae (pneumococcus)]Omari Castrejon Other [employer] Other 081690-23-7962mnkvremcc virus vaccine, unspecified formulationFleming County Hospitalarmando GALARZA [facility] [place] 573000-31-2015influenza, injectable, quadrivalent, preservative Patrick Madrid MD Work Phone: [facility] HospitalIjldzfnihk55-38-8338tyoefjroq virus vaccine, split virus (incl. purified surface antigen)Omari Castrejon Other [place] [employer] Other 002919-96-1545pkgitncxh virus vaccine, unspecified formulationDO Ruddy Reyes Work Phone: [facility]10-06-2015tetanus and diphtheria toxoids, adsorbed, preservative free, for adult use (5 Lf of tetanus toxoid and 2 Lf of diphtheria toxoid)DO Ruddy Reyes Work Phone: [facility]10-06-2015tetanus toxoid, reduced diphtheria toxoid, and acellular pertussis vaccine, adsorbed Omari Castrejon Other [employer] Other [id number], tetanus toxoids and acellular pertussis vaccine, unspecified formulationOmari Castrejon Other [facility]11-05-1999Td(adult) unspecified formulationPameghna GALARZA [facility] [place] Payers DatePayer CategoryPayerPolicy ID2024Medicare [id number]-pyi [id number] 2022Medicare (Managed Care)[employer] [id number] [id number] [id number] 2.0.6.486040.8542-01-1960 [id number] 2.160.2.57041[id number] 2.0.1.185519.3.57[id number] 2.16840.1.919817.3.57[id number] 2.16840.1.585645.3.57[id number] 2.16840.1.309421.3.57[id number] 2.16840.1.425872.3.57[id number] 2.16.840.1.842408.3.57[id number] 2.16.840.1.538773.3.57[id number] 2.16.840.1.309030.3.57[id number] 2.16.840.1.084245.3.57[id number] 2.16.840.1.096860.3.57[id number] 2.16840.1.146211.3.57[id number] 2.16.840.1.456888.3.57[id number] 2.16.840.1.481724.3.57[id number] 2.16840.1.725789.3.57[id number] 2.16840.1.784850.3.57[id number] 2.16.840.1.995183.3.579.2.727MedicareDevoted Health Plans [facility] [id number] of [id number] 2.16840.1.6[id number] 2.16.840.1.358503.3.579.2.531 [id number] 2.16.840.1.0[id number] 2.16.840.1.314865.3.579.2.531 Social History DateTypeDetailFacilityStart: 03-30-2024 End: 05-65-1485Idg Assigned At [facility] [employer] Other Start: 05-13-2022 End: 93-71-4669Qzxkcy (finding)[facility] start: 23-78-6980Mpb [facility]igned At [facility] Foundationtart: 11-03-2023 End: 72-92-3880Qhitkqr smoking statusHeavy tobacco smoker (finding)[facility] HospitalTobacco smoking statusNever [facility] Hospitaltart: 01-10-2010 End: 94-76-7909KadEsnshz (finding)[facility] Systemtart: 88-30-0715Qoynrba smoking status NHISSmokes tobacco dailyNOMS HealthcareStart: 87-71-8782Hbfwjuo of tobacco useCigarette SmokerNOMS HealthcareStart: 03-12-2023 Tobacco use and exposureSmokeless tobacco non-userNOMS HealthcareStart: 03-30-2024 End: 24-86-7661Grlyxnkjv beverage intakeCurrent drinker of alcohol (finding)[facility] HealthcareStart: 03-30-2024 End: 43-60-9923Ukbpprc of Social functionNOMS HealthcareStart: 27-90-0228Kxxhuqi Hbkghuw89-71 cigarettes per dayNOMS HealthcareStart: 91-71-3318Ienoxwz Comment2- 4 times a monthNOMS HealthcareStart: 53-49-5486Svd assigned at birthNot on file [facility] HealthcareHow often to you have a drink containing alcohol?Monthly or less [facility] HealthcareHow many standard drinks containing alcohol do you have on a typical day?1 or 2NOMS HealthcareHow often do you have 6 or more drinks on 1 occasion?NeverNOME HealthcareSexual OrientationExec[facility] of [facility] Goals DatePatient GoalDesired Activity/State Functional Status SxqhZfatrwyoxjSwqttmCdcmhnow03-41-8164Exvypqf Health Questionnaire 2 item (PHQ- 2) [Reported][facility] HospitalAlaubvtavn05-07-9336Edxxf score [AUDIT-C]1 03/16/2025 10:34 AM EDT Rosario Bee MANOMS Sxqliumgdn42-90-2075Gkowigmyvr StatusN/AExec[facility] of [facility]02-13-2024Functional StatusN/A [facility]02-05-2024Functional StatusN/A[facility]09-25-2023Functional StatusN/A[facility]08-15-2022N/A[facility] Clinical Notes 10-02-2021 to 06-27-2025 Note Date & LasuCvxzKwawduxd45-22-5871 Hospital Discharge instructions Patient Education 06/27/2025 13:00:19 Overactive Bladder, Adult Overactive Bladder, Adult Overactive bladder is a condition in which a person has a sudden and frequent need to urinate. A person might also leak urine if he or she cannot get to the bathroom fast enough (urinary incontinence). Sometimes, symptoms can interfere with work or social activities. What are the causes? Overactive bladder is associated with poor nerve signals between your bladder and your brain. Your bladder may get the signal to empty before it is full. You may also have very sensitive muscles thatmake your bladder squeeze too soon. This condition may also be caused by other factors, such as: Medical conditions: ?Urinary tract infection. ?Infection of nearby tissues. ?Prostate enlargement. ?Bladder stones, inflammation, or tumors. ?Diabetes. ?Muscle or nerve weakness, especially from these conditions: ?A spinal cord injury. ?Stroke. ?Multiple sclerosis. ?Parkinson's disease. Other causes: ?Surgery on the uterus or urethra. ?Drinking too much caffeine or alcohol. ?Certain medicines, especially those that eliminate extra fluid in the body (diuretics). ?Constipation. What increases the risk? You may be at greater risk for overactive bladder if you: Are an older adult. Smoke. Are going through menopause. Have prostate problems. Have a neurological disease, such as stroke, dementia, Parkinson's disease, or multiple sclerosis (MS). Eat or drink alcohol, spicy food, caffeine, and other things that irritate the bladder. Are overweight or obese. What are the signs or symptoms? Symptoms of this condition include a sudden, strong urge to urinate. Other symptoms include: Leaking urine. Urinating 8 or more times a day. Waking up to urinate 2 or more times overnight. How is this diagnosed? This condition may be diagnosed based on: Your symptoms and medical history. A physical exam. Blood or urine tests to check for possible causes, such as infection. You may also need to see a health care provider who specializes in urinary tract problems. This is called a urologist. How is this treated? Treatment for overactive bladder depends on the cause of your condition and whether it is mild or severe. Treatment may include: Bladder training, such as: ?Learning to control the urge to urinate by following a schedule to urinate at regular intervals. ?Doing Kegel exercises to strengthen the pelvic floor muscles that support your bladder. Special devices, such as: ?Biofeedback. This uses sensors to help you become aware of your body's signals. ?Electrical stimulation. This uses electrodes placed inside the body (implanted) or outside the body. These electrodes send gentle pulses of electricity to strengthen the nerves or muscles that control the bladder. ?Women may use a plastic device, called a pessary, that fits into the vagina and supports the bladder. Medicines, such as: ?Antibiotics to treat bladder infection. ?Antispasmodics to stop the bladder from releasing urine at the wrong time. ?Tricyclic antidepressants to relax bladder muscles. ?Injections of botulinum toxin type A directly into the bladder tissue to relax bladder muscles. Surgery, such as: ?A device may be implanted to help manage the nerve signals that control urination. ?An electrode may be implanted to stimulate electrical signals in the bladder. ?A procedure may be done to change the shape of the bladder. This is done only in very severe cases. Follow these instructions at home: Eating and drinking Make diet or lifestyle changes recommended by your health care provider. These may include: ?Drinking fluids throughout the day and not only with meals. ?Cutting down on caffeine or alcohol. ?Eating a healthy and balanced diet to prevent constipation. This may include: ?Choosing foods that are high in fiber, such as beans, whole grains, and fresh fruits and vegetables. ?Limiting foods that are high in fat and processed sugars, such as fried and sweet foods. Lifestyle Lose weight if needed. Do not use any products that contain nicotine or tobacco. These include cigarettes, chewing tobacco, and vaping devices, such as e-cigarettes. If you need help quitting, ask your health care provider. General instructions Take xvib-gwj-uqoqzir and prescription medicines only as told by your health care provider. If you were prescribed an antibiotic medicine, take it as told by your health care provider. Do notstop taking the antibiotic even if you start to feel better. Use any implants or pessary as told by your health care provider. If needed, wear pads to absorb urine leakage. Keep a log to track how much and when you drink, and when you need to urinate. This will help your health care provider monitor your condition. Keep all follow-up visits. This is important. Contact a health care provider if: You have a fever or chills. Your symptoms do not get better with treatment. Your pain and discomfort get worse. You have more frequent urges to urinate. Get help right away if: You are not able to control your bladder. Summary Overactive bladder refers to a condition in which a person has a sudden and frequent need to urinate. Several conditions may lead to an overactive bladder. Treatment for overactive bladder depends on the cause and severity of your condition. Making lifestyle changes, doing Kegel exercises, keeping a log, and taking medicines can help with this condition. This information is not intended to replace advice given to you by your health care provider. Make sure you discuss any questions you have with your health care provider. Document Revised: 06/04/2021 Document Reviewed: 06/04/2021 [employer] Patient Education 2023 [employer]. Follow Up Care 05/02/2025 13:20:51 With:GEOVANNI PATRICIO, Brooke Renae, URL Address: [facility] [address], [place] [address]- When: Unknown [facility] José Miguel 09-29-2025 NotePatient Education Obstetrics and Gynecology Overactive Bladder, Adult Overactive bladder is a condition in which a person has a sudden and frequent need to urinate. A person might also leak urine if he or she cannot get to the bathroom fast enough (urinary incontinence). Sometimes, symptoms can interfere with work or social activities. What are the causes? Overactive bladder is associated with poor nerve signals between your bladder and your brain. Your bladder may get the signal to empty before it is full. You may also have very sensitive muscles thatmake your bladder squeeze too soon. This condition may also be caused by other factors, such as: ??? Medical conditions: ? Urinary tract infection. ? Infection of nearby tissues. ? Prostate enlargement. ? Bladder stones, inflammation, or tumors. ? Diabetes. ? Muscle or nerve weakness, especially from these conditions: ? A spinal cord injury. ? Stroke. ? Multiple sclerosis. ? Parkinson's disease. ??? Other causes: ? Surgery on the uterus or urethra. ? Drinking too much caffeine or alcohol. ? Certain medicines, especially those that eliminate extra fluid in the body (diuretics). ? Constipation. What increases the risk? You may be at greater risk for overactive bladder if you: ??? Are an older adult. ??? Smoke. ??? Are going through menopause. ??? Have prostate problems. ??? Have a neurological disease, such as stroke, dementia, Parkinson's disease, or multiple sclerosis (MS). ??? Eat or drink alcohol, spicy food, caffeine, and other things that irritate the bladder. ??? Are overweight or obese. What are the signs or symptoms? Symptoms of this condition include a sudden, strong urge to urinate. Other symptoms include: ??? Leaking urine. ??? Urinating 8 or more times a day. ??? Waking up to urinate 2 or more times overnight. How is this diagnosed? This condition may be diagnosed based on: ??? Your symptoms and medical history. ??? A physical exam. ??? Blood or urine tests to check for possible causes, such as infection. You may also need to see a health care provider who specializes in urinary tract problems. This is called a urologist. How is this treated? Treatment for overactive bladder depends on the cause of your condition and whether it is mild or severe. Treatment may include: ??? Bladder training, such as: ? Learning to control the urge to urinate by following a schedule to urinate at regular intervals. ? Doing Kegel exercises to strengthen the pelvic floor muscles that support your bladder. ??? Special devices, such as: ? Biofeedback. This uses sensors to help you become aware of your body's signals. ? Electrical stimulation. This uses electrodes placed inside the body (implanted) or outside the body. These electrodes send gentle pulses of electricity to strengthen the nerves or muscles that control the bladder. ? Women may use a plastic device, called a pessary, that fits into the vagina and supports the bladder. ??? Medicines, such as: ? Antibiotics to treat bladder infection. ? Antispasmodics to stop the bladder from releasing urine at the wrong time. ? Tricyclic antidepressants to relax bladder muscles. ? Injections of botulinum toxin type A directly into the bladder tissue to relax bladder muscles. ??? Surgery, such as: ? A device may be implanted to help manage the nerve signals that control urination. ? An electrode may be implanted to stimulate electrical signals in the bladder. ? A procedure may be done to change the shape of the bladder. This is done only in very severe cases. Follow these instructions at home: Eating and drinking ??? Make diet or lifestyle changes recommended by your health care provider. These may include: ? Drinking fluids throughout the day and not only with meals. ? Cutting down on caffeine or alcohol. ? Eating a healthy and balanced diet to prevent constipation. This may include: ? Choosing foods that are high in fiber, such as beans, whole grains, and fresh fruits and vegetables. ? Limiting foods that are high in fat and processed sugars, such as fried and sweet foods. Lifestyle ??? Lose weight if needed. ??? Do not use any products that contain nicotine or tobacco. These include cigarettes, chewing tobacco, and vaping devices, such as e-cigarettes. If you need help quitting, ask your health care provider. General instructions ??? Take izxh-hia-msszpam and prescription medicines only as told by your health care provider. ??? If you were prescribed an antibiotic medicine, take it as told by your health care provider. Donot stop taking the antibiotic even if you start to feel better. ??? Use any implants or pessary as told by your health care provider. ??? If needed, wear pads to absorb urine leakage. ??? Keep a log to track how much and when you drink, and whe (more content not included)...[facility]08-04-2025 Hospital Discharge instructions Patient Education 05/02/2025 13:15:20 Urinary Incontinence Urinary Incontinence Urinary incontinence refers to a condition in which a person is unable to control where and when topass urine. A person with this condition will urinate involuntarily. This means that the person urinates when he or she does not mean to. What are the causes? This condition may be caused by: Medicines. Infections. Constipation. Overactive bladder muscles. Weak bladder muscles. Weak pelvic floor muscles. These muscles provide support for the bladder, intestine, and, in women,the uterus. Enlarged prostate in men. The prostate is a gland near the bladder. When it gets too big, it can pinch the urethra. With the urethra blocked, the bladder can weaken and lose the ability to empty properly. Surgery. Emotional factors, such as anxiety, stress, or post-traumatic stress disorder (PTSD). Spinal cord injury, nerve injury, or other neurological conditions. Pelvic organ prolapse. This happens in women when organs move out of place and into the vagina. This movement can prevent the bladder and urethra from working properly. What increases the risk? The following factors may make you more likely to develop this condition: Age. The older you are, the higher the risk. Obesity. Being physically inactive. and childbirth. Menopause. Diseases that affect the nerves or spinal cord. Long-term, or chronic, coughing. This can increase pressure on the bladder and pelvic floor muscles. What are the signs or symptoms? Symptoms may vary depending on the type of urinary incontinence you have. They include: A sudden urge to urinate, and passing urine involuntarily before you can get to a bathroom (urge incontinence). Suddenly passing urine when doing activities that force urine to pass, such as coughing, laughing, exercising, or sneezing (stress incontinence). Needing to urinate often but urinating only a small amount, or constantly dribbling urine (overflowincontinence). Urinating because you cannot get to the bathroom in time due to a physical disability, such as arthritis or injury, or due to a communication or thinking problem, such as Alzheimer's disease (functional incontinence). How is this diagnosed? This condition may be diagnosed based on: Your medical history. A physical exam. Tests, such as: ?Urine tests. ?X-rays of your kidney and bladder. ?Ultrasound. ?CT scan. ?Cystoscopy. In this procedure, a health care provider inserts a tube with a light and camera (cystoscope) through the urethra and into the bladder to check for problems. ?Urodynamic testing. These tests assess how well the bladder, urethra, and sphincter can store and release urine. There are different types of urodynamic tests, and they vary depending on what the test is measuring. To help diagnose your condition, your health care provider may recommend that you keep a log of when you urinate and how much you urinate. How is this treated? Treatment for this condition depends on the type of incontinence that you have and its cause. Treatment may include: Lifestyle changes, such as: ?Quitting smoking. ?Maintaining a healthy weight. ?Staying active. Try to get 150 minutes of moderate-intensity exercise every week. Ask your health care provider which activities are safe for you. ?Eating a healthy diet. ?Avoid high-fat foods, like fried foods. ?Avoid refined carbohydrates like white bread and white rice. ?Limit how much alcohol and caffeine you drink. ?Increase your fiber intake. Healthy sources of fiber include beans, whole grains, and fresh fruitsand vegetables. Behavioral changes, such as: ?Pelvic floor muscle exercises. ?Bladder training, such as lengthening the amount of time between bathroom breaks, or using the bathroom at regular intervals. ?Using techniques to suppress bladder urges. This can include distraction techniques or controlled breathing exercises. Medicines, such as: ?Medicines to relax the bladder muscles and prevent bladder spasms. ?Medicines to help slow or prevent the growth of a man's prostate. ?Botox injections. These can help relax the bladder muscles. Treatments, such as: ?Using pulses of electricity to help change bladder reflexes (electrical nerve stimulation). ?For women, using a medical laboratory technical officer to prevent urine leaks. This is a small, tampon-like, disposabledevice that is inserted into the urethra. ?Injecting collagen or carbon beads (bulking agents) into the urinary sphincter. These can help thicken tissue and close the bladder opening. ?Surgery. Follow these instructions at home: Lifestyle Limit alcohol and caffeine. These can fill your bladder quickly and irritate it. Keep yourself clean to help prevent odors and skin damage. Ask your health care provider about special skin creams and cleansers that can protect the skin from urine. Consider wearing pads or adult diapers. Make sure to change them regularly, and always change them right after experiencing incontinence. General instructions Take zhgm-hkb-ffzvcdd and prescription medicines only as told by your health care provider. Use the bathroom about every 3 4 hours, even if you do not feel the need to urinate. Try to empty your bladder completely every time. After urinating, wait a minute. Then try to urinate again. Make sure you are in a relaxed position while urinating. If your incontinence is caused by nerve problems, keep a log of the medicines you take and the times you go to the bathroom. Keep all follow-up visits. This is important. Where to find more information [employer]: www.niddk.nih.gov [employer] [employer]: www.urologyhealth.org Contact a health care provider if: You have pain that gets worse. Your incontinence gets worse. Get help right away if: You have a fever or chills. You are unable to urinate. You have redness in your groin area or down your legs. Summary Urinary incontinence refers to a condition in which a person is unable to control where and when topass urine. This condition may be caused by medicines, infection, weak bladder muscles, weak pelvic floor muscles, enlargement of the prostate (in men), or surgery. Factors such as older age, obesity, and childbirth, menopause, neurological diseases, andchronic coughing may increase your risk for developing this condition. Types of urinary incontinence include urge incontinence, stress incontinence, overflow incontinence, and functional incontinence. This condition is usually treated first with lifestyle and behavioral changes, such as quitting smoking, eating a healthier diet, and doing regular pelvic floor exercises. Other treatment options include medicines, bulking agents, medical devices, electrical nerve stimulation, or surgery. This information is not intended to replace advice given to you by your health care provider. Make sure you discuss any questions you have with your health care provider. Document Revised: 04/20/2021 Document Reviewed: 04/20/2021 [employer] Patient Education 2023 [employer]. Follow Up Care 06/23/2023 11:59:05 With:GEOVANNI PATRICIO, Brooke Renae, URL Address: [address] [place] [id number] When: Unknown Comments:2-3 mos w/ PVR [facility] José Miguel 08-04-2025 NotePatient Education Urology Urinary Incontinence Urinary incontinence refers to a condition in which a person is unable to control where and when topass urine. A person with this condition will urinate involuntarily. This means that the person urinates when he or she does not mean to. What are the causes? This condition may be caused by: ??? Medicines. ??? Infections. ??? Constipation. ??? Overactive bladder muscles. ??? Weak bladder muscles. ??? Weak pelvic floor muscles. These muscles provide support for the bladder, intestine, and, in women, the uterus. ??? Enlarged prostate in men. The prostate is a gland near the bladder. When it gets too big, it can pinch the urethra. With the urethra blocked, the bladder can weaken and lose the ability to empty properly. ??? Surgery. ??? Emotional factors, such as anxiety, stress, or post-traumatic stress disorder (PTSD). ??? Spinal cord injury, nerve injury, or other neurological conditions. ??? Pelvic organ prolapse. This happens in women when organs move out of place and into the vagina.This movement can prevent the bladder and urethra from working properly. What increases the risk? The following factors may make you more likely to develop this condition: ??? Age. The older you are, the higher the risk. ??? Obesity. ??? Being physically inactive. ??? and childbirth. ??? Menopause. ??? Diseases that affect the nerves or spinal cord. ??? Long-term, or chronic, coughing. This can increase pressure on the bladder and pelvic floor muscles. What are the signs or symptoms? Symptoms may vary depending on the type of urinary incontinence you have. They include: ??? A sudden urge to urinate, and passing urine involuntarily before you can get to a bathroom (urge incontinence). ??? Suddenly passing urine when doing activities that force urine to pass, such as coughing, laughing, exercising, or sneezing (stress incontinence). ??? Needing to urinate often but urinating only a small amount, or constantly dribbling urine (overflow incontinence). ??? Urinating because you cannot get to the bathroom in time due to a physical disability, such as arthritis or injury, or due to a communication or thinking problem, such as Alzheimer's disease (functional incontinence). How is this diagnosed? This condition may be diagnosed based on: ??? Your medical history. ??? A physical exam. ??? Tests, such as: ? Urine tests. ? X-rays of your kidney and bladder. ? Ultrasound. ? CT scan. ? Cystoscopy. In this procedure, a health care provider inserts a tube with a light and camera (cystoscope) through the urethra and into the bladder to check for problems. ? Urodynamic testing. These tests assess how well the bladder, urethra, and sphincter can store andrelease urine. There are different types of urodynamic tests, and they vary depending on what the test is measuring. To help diagnose your condition, your health care provider may recommend that you keep a log of when you urinate and how much you urinate. How is this treated? Treatment for this condition depends on the type of incontinence that you have and its cause. Treatment may include: ??? Lifestyle changes, such as: ? Quitting smoking. ? Maintaining a healthy weight. ? Staying active. Try to get 150 minutes of moderate-intensity exercise every week. Ask your healthcare provider which activities are safe for you. ? Eating a healthy diet. ? Avoid high-fat foods, like fried foods. ? Avoid refined carbohydrates like white bread and white rice. ? Limit how much alcohol and caffeine you drink. ? Increase your fiber intake. Healthy sources of fiber include beans, whole grains, and fresh fruits and vegetables. ??? Behavioral changes, such as: ? Pelvic floor muscle exercises. ? Bladder training, such as lengthening the amount of time between bathroom breaks, or using the bathroom at regular intervals. ? Using techniques to suppress bladder urges. This can include distraction techniques or controlledbreathing exercises. ??? Medicines, such as: ? Medicines to relax the bladder muscles and prevent bladder spasms. ? Medicines to help slow or prevent the growth of a man's prostate. ? Botox injections. These can help relax the bladder muscles. ??? Treatments, such as: ? Using pulses of electricity to help change bladder reflexes (electrical nerve stimulation). ? For women, using a medical laboratory technical officer to prevent urine leaks. This is a small, tampon-like, disposable device that is inserted into the urethra. ? Injecting collagen or carbon beads (bulking agents) into the urinary sphincter. These can help thicken tissue and close the bladder opening. ? Surgery. Follow these instructions at home: Lifestyle ??? Limit alcohol and caffeine. These can fill your bladder quickly and irritate it. ??? Keep yourself clean to help prevent odors and skin damage. Ask your health care provider (more content not included)...[facility] 03-16-2025 History of Present illness Narrative* Emy Milan MA - 03/16/2025 10:30 AM EDT Images from the original note were not included. Marco Castro, DO Obstetrics and Gynecology Merissa Love 1950 03/16/25 [id number] Yearly Wellness Exam Chief Complaint Patient presents with Gynecologic Exam Medicare off year/ repeat pap. LMP: 2000 HRT: Estrace cream - satisfied- managed by Dr. Galarza for UTIs. Last pap 12-24-23 DE[facility]. Last mammogram 08-20-24 [facility]. Denies breast or bowel concerns. Bladder Problem C/o frequency and urgency. Leaks if she does not make it to the bathroom. Wakes up every night around 5-6AM. Denies stress incontinence. Visit Vitals BP 138/84 Ht 5' 4.5 Wt 175 lb BMI 29.57 kg/m OB Status Postmenopausal Smoking Status Every Day BSA 1.9 m OB History Para Term AB Living 4 3 1 3 SAB IAB Ectopic Multiple Live Births 1 3 # Outcome Date GA Lbr Ezra/2nd Weight Sex Type Anes PTL Lv 4 Para 8 lb 10 oz Vag-Spont KAIT 3 SAB 2 Para 8 lb 13 oz Vag-Spont AKIT 1 Para 8 lb 14 oz Vag-Spont KAIT Obstetric Comments Heaviest weighed 8 lbs 14 oz Current Outpatient Medications Medication Sig Dispense Refill amphetamine-dextroamphetamine (Adderall) 20 MG tablet TAKE 1/2-1 TABLET BY MOUTH ONCE A DAY Ascorbic Acid (VITAMIN C PO) aspirin 81 MG EC tablet Take 81 mg by mouth in the morning. atenolol (Tenormin) 25 MG tablet 1 (one) time each day at the same time. CALCIUM PO Cholecalciferol (Vitamin D3) 1000 units capsule 1 capsule 1 (one) time each day at the same time. escitalopram (Lexapro) 10 MG tablet Take 10 mg by mouth at bedtime estradiol (Estrace) 0.1 MG/GM vaginal cream Insert 1 g into the vagina famotidine (Pepcid) 40 MG tablet Take by mouth. levothyroxine (Synthroid, Levoxyl) 125 MCG tablet TAKE 1 TABLET BY MOUTH ONCE EVERY DAY ON AN EMPTYSTOMACH oxybutynin XL (Ditropan-XL) 10 MG 24 hr tablet Take 1 tablet (10 mg) by mouth Daily Do not crush, chew, or split. 90 tablet 3 pseudoephedrine (Sudafed) 30 MG tablet Take 30 mg by mouth every 4 (four) hours if needed for congestion. pyridoxine (B6 Natural) 100 MG tablet 1 (one) time each day at the same time. rosuvastatin (Crestor) 20 MG tablet Take 20 mg by mouth in the evening. terbinafine (LamISIL) 1 % cream Apply topically in the morning and before bedtime. 30 g 1 tretinoin (Retin-A) 0.025 % cream Apply topically at bedtime Apply thin layer to face at bedtime 45g 11 zolpidem (Ambien) 5 MG tablet TAKE 1 TABLET BY MOUTH DAILY AT BEDTIME FOR 30 DAYS. No current facility-administered medications for this visit. Allergies Allergen Reactions Atorvastatin Other Ezetimibe Other Reaction(s): Pancreatitis Nitrofurantoin Unknown Nsaids Unknown Other Other Past Surgical History: Procedure Laterality Date CATARACT EXTRACTION EXTRACAPSULAR W/ INTRAOCULAR LENS IMPLANTATION Bilateral 2014 CHEILECTOMY 2016 Left foot COLPOSCOPY 06/25/2023 neg PATH CYSTOURETHROSCOPY 2010 TVT-O DILATION AND CURETTAGE OF UTERUS 1975 EGD 06/2020 ERCP 2011 HYSTEROSCOPY 02/26/2024 exam under anesthesia, endocervical curettage HYSTEROSCOPY DIAGNOSTIC 09/08/2020 d+c/ Myosure endometrial polypectomy HYSTEROSCOPY DIAGNOSTIC 03/01/2021 d+c/ Lily endometrial ablation/Cautherizaiton of cervix LAMINECTOMY 2004 L4-5 MI LAP,CHOLECYSTECTOMY 2004 SHOULDER SURGERY Left 1997 VAGINAL DELIVERY x3 ( [id number], 1972 and 1978) Past Medical History: Diagnosis Date Abnormal Pap smear of cervix 06/10/2023 atypical glandular cells Anxiety Colitis Heart palpitations Hiatal hernia HLD (hyperlipidemia) Hx of migraine headaches Narcolepsy (HCC) OA (osteoarthritis) Stomach problems Thyroid disease ROS Const: Denies appetite change, fever, chills. Allergy: Denies medication reaction. Ocular: Denies visual acuity change. ENT: Denies hearing change. Endoc: Denies weight loss. Resp: Denies dyspnoea, wheezing. Cardiac: Denies angina, palpitations. GI: Denies nausea, vomiting. Haem: Denies bleeding. : Denies incontinence. MSK: Denies arthralgias, joint oedema. Derm: Denies rash, hair loss. Neuro: Denies ataxia, tremor. Also see HPI for elements of ROS documented therein and for details of positive findings, which shall supersede the foregoing. EXAM GENERAL EXAMINATION alert oriented well developed, well nourished. HEAD: normocephalic atraumatic. EYES: sclera anicteric. EARS: no obvious hearing deficit. NECK/THYROID: neck supple no cervical lymphadenopathy no thyromegaly. LYMPH NODES: no axillary, supraclavicular or inguinal adenopathy. SKIN: warm and dry. HEART: regular rate and rhythm. LUNGS: clear to auscultation bilaterally. CHEST:axillary nodes grossly normal. BREASTS:no masses palpable bilaterally, normal nipples bilaterally - everted - fatty replaced - dense - well supported- axilla negative. ABDOMEN: soft, nontender, nondistended, no masses palpable. BACK: no costovertebral angle tenderness, no obvious scoliosis/kyphosis. FEMALE GENITOURINARY:celery cutter in room -mild atrophic, multipcervix without lesion, normal AV uterus small nl, adnexa negative - cul-de-sac negative. RECTAL:normal tone , no masses palpable , only small external hemorrhoids. EXTREMITIES no edema. NEUROLOGIC: alert and oriented. PSYCH: cooperative with exam. ICD-10-CM 1. Atrophic vaginitis N95.2 Pelvic and breast exam completed. Findings of today's exam discussed with the patient. Continue MSBE. Ca/Vit D recommendations reviewed with the patient. The patient is to contact the office with anychanges to her gynecological condition or any changes with breast or bleeding. The patient is to return in 1 year or as needed 2. Atypical glandular cells of undetermined significance (DEZ) on cervical Pap smear R87.619 IGP,rfxAptima HPV all,16/18,45 Thinprep collected. Will notify patient if results are abnormal. 3. Breast cancer screening by mammogram Z12.31 Bilateral screening mammogram with tomosynthesis Screening mammogram ordered. Patient to call and schedule. 4. Hormone replacement therapy Z79.890 Estrace cream. 5. Urinary urgency R39.15 oxybutynin XL (Ditropan-XL) 10 MG 24 hr tablet Voiced has had urgency for years- but has increased. If does not get there doesn't make it. Discussed urgency - neurological problem - bladder spasms - medication to decrease bladder symptoms . May experience dry mouth. Should decrease symptoms and give time to get there. Call office with update. Entered by Emy Milan MA acting as scribe for Dr. Marco Castro. Signature Emy Milan MA Date 03/16/25 . Time 10:59 AM . The documentation recorded by the scribe accurately reflectsthe service(s) I personally performed and the decisions I made. Signature Maxine Castro D.O. Date 03/16/25 Time 5:00PM. documented in this encounterGeneral Leonard Wood Army Community [id number] History of Present illness Narrative* Kirstin Madrid MD - 03/03/2025 10:35 AM EDT Images from the original note were not included. Skin Check Location: Patient requests a full body skin examination Dermatologic history: no history of skin cancer, no history of atypical moles, no family history ofmelanoma Last visit: 1 year ago Established patient Dry Skin Location: left heel Duration: 2 months Associated Factors: skin peeling Current treatment: OTC lotrimin cream x 1 week, with no improvement Lesions: Location: right groin Duration: dew months Quality: denies pain, denies itch, denies bleeding Associated symptoms: enlarged, non-healing Treatments: none All pertinent medical history, medications, and allergies were reviewed. General Exam: alert, oriented to person, place, and time, normal affect, well appearing Unaccompanied Scalp, Examined Right leg Examined Head, Face Examined Left leg Examined Neck Examined Right foot Examined Chest Examined Left foot Examined Back Examined Buttocks Examined Patient kept underwear on Abdomen Examined Digits,nails: Examined Right arm Examined Left arm Examined Lymphatics: Not examined Hands Examined Skin Exam 1. TINEA PEDIS OF LEFT FOOT (2) Left Medial Plantar Surface, Left Posterior Heel Region Scaly pink plaque Start Terbinafine cream daily until clear, then use once weekly to prevent reoccurrence. Notify office if flaring despite treatment. Related Medications terbinafine (LamISIL) 1 % cream Apply topically in the morning and before bedtime. 2. SYRINGOMA OF EYELID (2) Left Upper Eyelid, Right Upper Eyelid Scattered skin colored papules Instructed patient if areas are bothersome referral to eye doctor can be done, patient declined at this time. 3. LENTIGINES Generalized Scattered kinney macules in sun-exposed areas. The patient was informed that lentigines are benign pigmented lesions that occur on sun-exposed andsun-damaged skin. No treatment is necessary. Recommended regular use of broad spectrum sunscreen SPF 30 or higher. Can use tretinoin on face to help lighten areas. Reviewed instructions for use. Stop/hold for excessive irritation, cautioned regarding sun sensitivity. Related Medications tretinoin (Retin-A) 0.025 % cream Apply topically at bedtime Apply thin layer to face at bedtime 4. SEBORRHEIC KERATOSIS, INFLAMED (3) Left Abdomen (side) - Lower, Left Malar Cheek, Right Malar Cheek Inkerman and brown stuck on verrucous scaly papule with surrounding erythema The patient was informed that symptomatic seborrheic keratoses are benign growths that become inflamed, itchy, tender, traumatized, caught on clothing, or bleed. Symptomatic lesions can be treated with cryotherapy or curretage. Thicker lesions treated with cryotherapy may require more than one treatment. The patient was instructed to notify the office if abnormal redness or tenderness develops atthe treatment site. Cryotherapy today, see procedure note. Diagnosis: Inflamed seborrheic keratosis Indication: Inflamed Consent: Verbal consent was obtained and risks were discussed, including, but not limited to risks of scarring, darker or organization development consultant pigmentary changes, recurrence, incomplete removal and infection. Method: Liquid nitrogen was used to treat the lesion(s) with two 5-10 second freeze-thaw cycles Number of lesions treated: 3 Post-procedure instructions: Instructions were given orally and in writing. The office will be contacted if the lesion fails to resolve despite treatment, or if a side effect develops such as abnormal crusting, scabbing, redness or tenderness Cryotherapy, skin lesion - Left Abdomen (side) - Lower, Left Malar Cheek, Right Malar Cheek 5. ANGIOMA OF SKIN Trunk Scattered henderson-red papule(s). The patient was informed that angiomas are benign growths on the the skin. No treatment is necessary. 6. SEBORRHEIC KERATOSIS Generalized Stuck on verrucous, kinney-brown papules and plaques. Patient was counseled regarding these benign growths. Removal is normally not necessary, but they may be removed if they are symptomatic or for cosmetic reasons. 7. MELANOCYTIC NEVUS OF TRUNK Generalized Scattered benign appearing, regular brown to light brown melanocytic papules and macules with similar morphology Counseled regarding these benign growths. Rarely, a nevus can develop into malignant melanoma, so any changing nevi should be promptly re-evaluated. 8. EIC (EPIDERMAL INCLUSION CYST) Right Genitocrural Fold 1.2 x 1.1 cm erythematous, subcutaneous nodule Patient was counseled regarding cysts. Although benign, cysts often slowly enlarge and can occasionally become inflamed. Discussed the only way to definitively diagnose the lesion would be to have itremoved and tested. Discussed treatment options including observation vs. excision. Patient elected for excision. Reviewed procedure and what to expect. Patient informed that the office will contact them to schedule a 30 minute excision once an estimate of their co-pay is determined 9. NEOPLASM OF UNSPECIFIED BEHAVIOR OF BONE, SOFT TISSUE, AND SKIN Left Abdomen Skin colored papule Lesion biopsy Type of biopsy: tangential Informed consent: discussed and consent obtained Informed consent comment: The risks and benefits of the biopsy were discussed. Risks include but are not limited to bleeding, infection, scarring, pain, and nerve damage. An opportunity to ask questions prior to the procedure was permitted and all questions were answered. Patient was prepped and draped in usual sterile fashion: area cleansed with alcohol. Anesthesia: the lesion was anesthetized in a standard fashion Anesthetic: 1% lidocaine w/ epinephrine 1-100,000 buffered w/ 8.4% NaHCO3 Instrument used: DermaBlade Hemostasis achieved with: electrodesiccation Outcome: patient tolerated procedure well Outcome comment: The specimen was placed in a prelabeled formalin container to be sent for pathology Post-procedure details: sterile dressing applied and wound care instructions given Post-procedure details comment: Emphasized need to contact clinic for any signs of infection, uncontrollable bleeding, or complications. Dressing type: bandage Additional details: Photo taken yes Amount of lidocaine used: 0.5 cc Specimen A - Dermatopathology exam Differential Diagnosis: Inflamed acrochordon vs nevus Check Margins: No Size of lesion: 0.5 x 0.5 cm Next Visit: 1 year documented in this encounterGeneral Leonard Wood Army Community [id number] Evaluation note* Diagnosis Onset Date Resolution Status Admit Date Enteritis acuteOctober 13, 2024 9:33amEpigastric abdominal painacuteOctober 13, 2024 9:33amGAD (generalized anxiety disorder)acuteOctober 13, 2024 9:33amGERD (gastroesophageal reflux disease)acuteOctober 13, 2024 9:33amHypertensionacute Jess 2024 9:33amHypothyroidacuteOctober 13, 2024 9:33amIBS (irritable bowel syndrome)acuteOctober 13, 2024 9:33amPruritusacuteJanuary 2024 9:33amNarcolepsy without cataplexyacuteJanuary 2024 11:09amOSA (obstructive sleep apnea)acuteOctober 21, 2024 11:09amAnxietydeletedJanuary 2024 11:09amInsomniadeletedJanuary 2024 11:09am [facility] Work Phone: [phone]) 639-575806-11-2024 Hospital Discharge instructions Patient Education 03/09/2024 13:46:15 Urethral Stricture Urethral Stricture Urethral stricture is narrowing of the tube (urethra) that carries urine from the bladder out of the body. The urethra can become narrow due to scar tissue from an injury or infection. This can make it difficult to pass urine. In women, the urethra opens above the vaginal opening. In men, the urethra opens at the tip of the penis, and the urethra is much longer than it is in women. Because of the length of the male urethra, urethral stricture is much more common in men. This condition is treated with surgery. What are the causes? In both men and women, common causes of urethral stricture include: Urinary tract infection (UTI). Sexually transmitted infection (STI). Use of a tube placed into the urethra to drain urine from the bladder (urinary catheter). Urinary tract surgery. In men, common causes of urethral stricture include: A severe injury to the pelvis. Prostate surgery. Injury to the penis. In many cases, the cause of urethral stricture is not known. What increases the risk? You are more likely to develop this condition if you: Are male. Men who have had prostate surgery are at risk of developing this condition. Use a urinary catheter. Have had urinary tract surgery. What are the signs or symptoms? The main symptom of this condition is difficulty passing urine. This may cause decreased urine flow, dribbling, or spraying of urine. Other symptom of this condition may include: Frequent UTIs. Blood in the urine. Pain when urinating. Swelling of the penis in men. Inability to pass urine (urinary obstruction). How is this diagnosed? This condition may be diagnosed based on: Your medical history and a physical exam. Urine tests to check for infection or bleeding. X-rays. Ultrasound. Retrograde urethrogram. This is a type of test in which dye is injected into the urethra and then an X-ray is taken. Urethroscopy. This is when a thin tube with a light and camera on the end (urethroscope) is used tolook at the urethra. How is this treated? This condition is treated with surgery. The type of surgery that you have depends on the severity of your condition. You may have: Urethral dilation. In this procedure, the narrow part of the urethra is stretched open (dilated) with dilating instruments or a small balloon. Urethrotomy. In this procedure, a urethroscope is placed into the urethra, and the narrow part of the urethra is cut open with a surgical blade inserted through the urethroscope. Open surgery. In this procedure, an incision is made in the urethra, the narrow part is removed, and the urethra is reconstructed. Follow these instructions at home: Take vgqb-nop-ovrculc and prescription medicines only as told by your health care provider. If you were prescribed an antibiotic medicine, take it as told by your health care provider. Do notstop taking the antibiotic even if you start to feel better. Drink enough fluid to keep your urine pale yellow. Keep all follow-up visits as told by your health care provider. This is important. Contact a health care provider if: You have signs of a urinary tract infection, such as: ?Frequent urination or passing small amounts of urine frequently. ?Needing to urinate urgently. ?Pain or burning with urination. ?Urine that smells bad or unusual. ?Cloudy urine. ?Pain in the lower abdomen or back. ?Trouble urinating. ?Blood in the urine. ?Vomiting or being less hungry than normal. ?Diarrhea or abdominal pain. ?Vaginal discharge, if you are female. Your symptoms are getting worse instead of better. Get help right away if: You cannot pass urine. You have a fever. You have swelling, bruising, or discoloration of your genital area. This includes the penis, scrotum, and inner thighs for men, and the outer genital organs (vulva) and inner thighs for women. You develop swelling in your legs. You have difficulty breathing. Summary Urethral stricture is narrowing of the tube (urethra) that carries urine from the bladder out of the body. The urethra can become narrow due to scar tissue from an injury or infection. This condition can make it difficult to pass urine. This condition is treated with surgery. The type of surgery that you have depends on the severity of your condition. Contact a health care provider if your symptoms get worse or you have signs of a urinary tract infection. This information is not intended to replace advice given to you by your health care provider. Make sure you discuss any questions you have with your health care provider. Document Revised: 07/23/2022 Document Reviewed: 07/23/2022 [employer] Patient Education 2022 [employer]. Follow Up Care 11/11/2023 15:05:59 With:GEOVANNI PATRICIO, Brooke Renae, URL Address: [address] [place] [id number] When: Unknown [facility] [place] 02-05-2024 Hospital Discharge instructions Patient Education 11/03/2023 10:30:22 Urethral Dilation Urethral Dilation Urethral dilation is a procedure to stretch open (dilate) the urethra. The urethra is the tube thatdrains urine from the bladder out of the body. In women, the urethra opens above the vaginal opening. In men, the urethra opens at the tip of the penis. Urethral dilation is usually done to treat narrowing of the urethra (urethral stricture), which can make it difficult to pass urine. Urethral dilation widens the urethra so that you can pass urine normally. Urethral dilation is done through the urethral opening. There are no incisions made during the procedure. Tell a health care provider about: Any allergies you have. All medicines you are taking, including vitamins, herbs, eye drops, creams, and fcdv-aoc-smtdywb medicines. Any problems you or family members have had with anesthetic medicines. Any blood disorders you have. Any surgeries you have had. Any medical conditions you have. Whether you are or may be . What are the risks? Generally, this is a safe procedure. However, problems may occur, including: Bleeding. Infection. A return of urethral stricture, which requires repeating the dilation procedure. Damage to the urethra, which may require reconstructive surgery. Allergic reactions to medicines. What happens before the procedure? Medicines Ask your health care provider about: Changing or stopping your regular medicines. This is especially important if you are taking diabetes medicines or blood thinners. Taking medicines such as aspirin and ibuprofen. These medicines can thin your blood. Do not take these medicines unless your health care provider tells you to take them. Taking fjpv-tex-vrmgpal medicines, vitamins, herbs, and supplements. General instructions Follow instructions from your health care provider about eating or drinking restrictions. Plan to have someone take you home from the hospital or clinic. If you will be going home right after the procedure, plan to have someone with you for 24 hours. Ask your health care provider what steps will be taken to help prevent infection. These may include: ?Washing skin with a germ-killing soap. ?Taking antibiotic medicine. What happens during the procedure? An IV may be inserted into one of your veins. You will be given one or more of the following medicines: ?A local anesthetic to numb your urethral opening. This will be applied as a gel that will also lubricate the urethral opening. ?A sedative to help you relax. A thin tube with a light and camera on the end (cystoscope) will be inserted into your urethra. Your urethra will be rinsed (irrigated) with a germ-free (sterile) water solution. Narrow parts of your urethra will be stretched open using a dilator tool. Your surgeon will start with a very thin dilator, then use wider dilators as needed. A thin tube with an inflatable balloon on the tip may be inserted into your urethra. The balloon may be inflated to help stretch your urethra open. Your urethra will be irrigated. The procedure may vary among health care providers and hospitals. What can I expect after the procedure? After the procedure, it is common to have: ?Burning pain when urinating. ?Blood in your urine. ?A need to urinate frequently. You will be asked to urinate before you leave the hospital or clinic. Your urine flow should improve within a few days. Follow these instructions at home: Medicines Take htpn-koc-hrdklzd and prescription medicines only as told by your health care provider. If you were prescribed an antibiotic medicine, take it as told by your health care provider. Do notstop taking the antibiotic even if you start to feel better. Ask your health care provider if the medicine prescribed to you: ?Requires you to avoid driving or using heavy machinery. ?Can cause constipation. You may need to take these actions to prevent or treat constipation: ?Take vlku-osj-dalxsyx or prescription medicines. ?Eat foods that are high in fiber, such as beans, whole grains, and fresh fruits and vegetables. ?Limit foods that are high in fat and processed sugars, such as fried or sweet foods. General instructions Do not drive for 24 hours if you were given a sedative during your procedure. If you were sent home with a small, lubricated tube (catheter) to help keep your urethra open, follow your health care provider's instructions about how and when to use it. Drink enough fluid to keep your urine pale yellow. Return to your normal activities as told by your health care provider. Ask your health care provider what activities are safe for you. Keep all follow-up visits as told by your health care provider. This is important. Contact a health care provider if: Your urine is cloudy and smells bad. You develop new bleeding when you urinate. You pass blood clots when you urinate. You have pain that does not get better with medicine. You have a fever. You have swelling, bruising, or discoloration of your genital area. This includes the penis, scrotum, and inner thighs for men, and the outer genital organs (vulva) and inner thighs for women. Get help right away if: You develop new bleeding that does not stop. You cannot pass urine. Summary Urethral dilation is a procedure to stretch open (dilate) the urethra. Urethral dilation is usually done to treat narrowing of the urethra (urethral stricture), which canmake it difficult to pass urine. Ask your health care provider about changing or stopping your regular medicines before the procedure. After the procedure, it is common to have burning pain when urinating, blood in your urine, and a need to urinate frequently. This information is not intended to replace advice given to you by your health care provider. Make sure you discuss any questions you have with your health care provider. Document Revised: 10/28/2019 Document Reviewed: 10/28/2019 [employer] Patient Education 2022 [employer]. 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 This dose has helped her alertness, though not as much as the full dose did. She is trying to balance out positive effects, side effects, and negative cardiovascular risk from treatment. We discussed this complex interaction in detail, and she feels the best balance between risk and benefit has been achieved with current dose. Continue Rx, call if problems Aug,alpitations (ICD-10 - R00.2)She continues to follow with her primary provider for this issue. She reports they have discussed potentially increasing the atenolol dose but so far have not decided to do so. She reports her anxiety control has also been adequate Aug,OSA (obstructive sleep apnea) (ICD-10 - G47.33)She is using and benefiting from treatment [employer] Other 10-16-2023 Evaluation note* Encounter Date Diagnosis Assessment Notes Treatment Notes Treatment Clinical Notes Jun, WILD (obstructive sleep apnea) (I CD-10 - G47.33) [employer] Other 10-04-2023 Evaluation note* Encounter Date Diagnosis Assessment Notes Treatment Notes Treatment Clinical Notes Jun, Medicare annual wellness visit, subsequent (ICD-10 - Z00.00) Personalized health advice was given to the beneficiary including a written plan for screenings discussed and provided. Advanced care planning reviewed and/or information given as requested. Additional counseling was provided here today in regards to, [ ]. The above visit was performed by [ ], under direct supervision of [ ]. Document reviewed and amended by provider signed below. Jun,Elevated cholesterol (ICD-10 - E78.00)Instructed on diet and exercise with continued statin therapy.Discussed the beneficial effects of lo wering cholesterol in reducing the risk for cerebrovascular and cardiovascular disease. Jun,astroesophageal reflux disease with esophagitis without hemorrhage (ICD-10 - K21.00)Diet instructions: Smaller portions, avoid eating and laying flat, avoid eating or drinking prior to bedtime. Weight loss. Jun,OSA (obstructive sleep apnea) (ICD-10 - G47.33)This patient is aware of the benefits associated with WILD: With continued use, the patient reduces the risk for CT, CVA, HTN, cardiac dysrhythmias and sudden cardiac deaths.The patient is also aware of the association between WILD and morning headaches, daytime somnolence, fatigue and obesity, whichalso has been improved with continued use.The patient is compliant with treatment, wearing the equipment every night for greater than 4 hours.The patient is instructed to continue use of the CPAP forOSA treatment. Jun,AD (generalized anxiety disorder) (ICD-10 - F41.1)Increased episodes of anxiety, dizziness and palpitations. She is recovering from shingles w/ prolonged dysesthesias She continues to have right foot pain, awaiting for bracing Discussed and decided to restart SSRI - recheck in 8 wks Jun,rimary insomnia (ICD-10 - F51.01)Proper sleep routine. 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 Jun,alpitation (ICD-10 - R00.2)Healthy diet, exercise and avoidance of stimulants Jun,hronic eczematous otitis externa of both ears (ICD-10 - H60.8X3) Keep clean and dry. Avoid use of QTips Tipical steroids as needed for itching Jun,Screening mammogram for breast cancer (ICD-10 - Z12.31)Instructed patient on monthly SBE and yearly mammograms. Jun,High risk medication use (ICD-10 - Z79.899) [employer] Other 09-25-2023 Hospital Discharge instructions Patient Education 06/23/2023 11:54:39 Adrenal Adenoma Adrenal Adenoma An adrenal adenoma is a benign tumor of the glands that are located on top of each kidney (adrenal glands). These glands produce hormones. A benign tumor means that the growth is not cancer. A personmay have one or more tumors in one or both glands. In almost all cases, adrenal adenomas do not cause any symptoms. These are called nonfunctional adenomas. In rare cases, an adenoma may produce highlevels of hormones called cortisol or aldosterone. These tumors are called functional adenomas. Adrenal adenomas become more common as people grow older, but are unlikely to become cancerous. However, nonfunctional adenomas may become functional. What are the causes? In most cases, the cause of this condition is not known. In very rare cases, the condition may be passed from parent to child (inherited). Smoking and tobacco use is associated with significant increases in adrenal adenomas. What are the signs or symptoms? Symptoms of this condition depend on the type of adrenal adenoma that you have. Nonfunctional adrenal adenomas usually do not cause any symptoms. Symptoms of functional adrenal adenomas depend on which hormone is produced in high levels. ?Tumors that secrete cortisol cause a condition called Lawrenceburg's syndrome. Signs and symptoms include: ?Increased fat in the upper body. ?Tiredness and loss of energy. ?Muscle weakness. ?High blood pressure. ?High blood sugar. ?Bruising and purple stretch arnold in the skin, usually on the upper body. ?Facial hair, acne, and menstrual irregularities in women. ?Tumors that secrete aldosterone cause a condition called primary aldosteronism. Signs and symptomsinclude: ?High blood pressure that may be difficult to control. ?Tiredness and loss of energy. ?Headache. ?Weakness or numbness. ?Low potassium levels in your blood. How is this diagnosed? This condition may be diagnosed based on: Your symptoms. Your health care provider may suspect the condition if you have signs and symptoms of a functional adenoma. A physical exam. Blood and urine tests to check for high levels of hormones. Imaging studies to confirm the diagnosis. These may include: ?CT scan. ?MRI. ?PET scan. Biopsy. For this test, a sample of the tumor is removed and examined in a lab. This is done in rarecases where other tests have not given a clear result. Adrenal adenomas are often found by chance when imaging studies of the abdomen are done for other reasons. How is this treated? Treatment for this condition depends on the type of the adrenal adenoma that you have. You may treated with: Observation. This is done if you have a nonfunctional adrenal adenoma. For observation, you may need: ?Regular imaging studies to make sure the tumor is not growing. ?Blood or urine tests to make sure the tumor is not becoming functional. Surgery. This is done if you have a functional adenoma. Surgery is the main treatment for this condition and usually cures it. Medicines. These are used if surgery is not possible. The medicines block the effects of the hormones. Follow these instructions at home: Take ieum-krx-wtvecow and prescription medicines only as told by your health care provider. Return to your normal activities as told by your health care provider. Ask your health care provider what activities are safe for you. Do not use any products that contain nicotine or tobacco. These products include cigarettes, chewing tobacco, and vaping devices, such as e-cigarettes. If you need help quitting, ask your health careprovider. Keep all follow-up visits. This is important. This may include visits for regular tests and imagingstudies. Contact a health care provider if: You develop any of the signs or symptoms of Phi's syndrome or primary aldosteronism. You need help to stop smoking or using other tobacco products. Summary An adrenal adenoma is a benign tumor of the adrenal gland. Nonfunctional adenomas rarely cause symptoms and do not need to be treated. Functional adenomas produce hormones and may cause symptoms of Phi's syndrome or primary aldosteronism, depending on the type of hormone they produce. Adrenal adenomas do not become cancerous. Nonfunctional adenomas may become functional. Surgery to remove the tumor is the usual treatment for functional adenomas. This information is not intended to replace advice given to you by your health care provider. Make sure you discuss any questions you have with your health care provider. Document Revised: 05/15/2021 Document Reviewed: 05/15/2021 [employer] Patient Education 2022 [employer]. 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 Based on failure for these other agents, and ongoing symptoms, it is reasonable to return to the minimal effective dose of Adderall, although she is concerned about the potential for cardiac symptoms. She will monitor her symptoms, and will call if problems. She will call with response to lower dose Adderall treatment, and we will adjust or refill as appropriate Apr,Other insomnia (ICD-10 - G47.09)Since she gets up at 830 a typical time for sleep onset would likely be 12:30 AM. I encouraged her to avoid going to bed too early and especially to avoid laying in bed awake Apr,Obstructive sleep apnea (ICD-10 - G47.33)She is using and benefiting from treatment, and downloads have been excellent Apr,alpitations (ICD-10 - R00.2)She reports she believes these had more to do with anxiety and stress than they did to treat cardiac disease. She continues on atenolol Apr,MI 30.0-30.9,adult (ICD-10 - Z68.30)Weight reduction would be broadly beneficial for overall health, but would also have direct benefits on apnea severity and sleep quality. 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 Discussed alternative treatment options: - Elavil - Neurontin/Lyrica - Cymbalta - Capsaicin - Lidocaine - NSAIDS January,rug-induced constipation (ICD-10 - K59.03)Increase fluids and fiber. Continue Miralax and Senokot S as needed [facility] Other 05-15-2023 Evaluation note* Encounter Date Diagnosis Assessment Notes Treatment Notes Treatment Clinical Notes January, Acute left-sided thoracic back p ain (ICD-10 - M54.6) [employer] [facility] Other 05-05-2023 Evaluation note* Encounter Date Diagnosis Assessment Notes Treatment Notes Treatment Clinical Notes January, Herpes zoster with other complic ation (ICD-10 - B02.8) Continue treatment for pain and discomfort. Heat/ice and rest. Finish Acyclovir January,cute left-sided thoracic back pain (ICD-10 - M54.6)Secondary to shingles. January,Hyponatremia (ICD-10 - E87.1)Fluid restrict to 40oz Increase diet w/ protein intake January,Hepatitis (ICD-10 - K75.9)Secondary to Shingles virus, resolved January,Nausea (ICD-10 - R11.0)Diet instructions, small/frequent meals as tolerated [facility] [facility] Other 05-02-2023 Evaluation note* Encounter Date Diagnosis Assessment Notes Treatment Notes Treatment Clinical Notes January, Herpes zoster with other complic ation (ICD-10 - B02.8) Continue Acyclovir, [place] and Phenergan. Small, frequent and bland diet. Rest and use low heat as needed. Take rx as directed. Keep affected area clean and dry. May cover with non- occlusive bandage to prevent irritation. Pt education provided. Reinforced good hand hygiene for infection control. Immediateeval if warning s/s. Otherwise f/u with PCP in 14-21 days or sooner if new/worsening s/s. Pt verbalizes understanding and agrees with tx plan. Questions and concerns addressed. January,Hepatitis (ICD-10 - K75.9)Likely complication of Herpes virus. No treatment necessary. F/U labs in week but hepatic enzymes already improving. January,cute left-sided thoracic back pain (ICD-10 - M54.6)Continue [place] as needed. 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 She is willing to try Sunosi 75 mg by buying 150 mg and cutting in half, so will order that. Discussed improtance of getting adequate control of EDS. Her ESS is stable, but I am concerned and discussed the risks with her. I am hopeful she will decide to fill the Sunosi and start treatment. She will call with problems of poor response. She is working on keeping cost down I will see her back in 3 months but I strongly encouraged her to call if there is any problems or poor response. She will also call if she changes her mind about these issues Dec,Other insomnia (ICD-10 - G47.09)She is cut the NBN to every other day, and has had some increased difficulty initiating sleep. However her total sleep time remains 8 hours primarily as she will sleep in later if she has had troublegetting to sleep. We reviewed the principles of sleep hygiene, and they discussed the way awakeningtime can affect sleep onset time. I encouraged her to limit her time in bed to 8 hours at most, which may also help with insomnia Dec,Obstructive sleep apnea (ICD-10 - G47.33)She is using and benefiting from treatment, and downloads have been excellent Dec,MI 30.0-30.9,adult (ICD-10 - Z68.30) [facility] [facility] Other 04-10-2023 Evaluation note* Encounter Date Diagnosis Assessment Notes Treatment Notes Treatment Clinical Notes Dec, Acute bronchitis due to other sp ecified organisms (ICD-10 - J20.8) Instructed to use Robitussin or Mucinex for cough, saline or Flonase NS for congestion, Tylenol forpain and fever. 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 While her colitis flare has contributed, she also has not gotten good effects from the armodafinil. She was unable to tolerate the full 250 mg dose, but is willing to try 150 mg. We will send in that change, and she will continue to take 125 mg in the meantime. As she continues to have a disturbing degree of excessive daytime fatigue we will add Sunosi, although she wants to check into the cost before she decides to fill that. Extensive discussion. Return 4 to 6 weeks Oct,Obstructive sleep apnea (ICD-10 - G47.33)She is using and benefiting from treatment. There is no indication that her excessive fatigue is coming from uncontrolled or persistent sleep apnea [facility] [facility] Other 02-14-2023 Evaluation note* Encounter Date Diagnosis Assessment Notes Treatment Notes Treatment Clinical Notes Oct, Gastroesophageal ref lux disease with esophagitis without hemorrhage (ICD-10 - K21.00) Diet instructions: Smaller portions, avoid eating and laying flat, avoid eating or drinking prior to bedtime. Weight loss. Oct,Obstructive sleep apnea (ICD-10 - G47.33)This patient is aware of the benefits associated with WILD: With continued use, the patient reduces the risk for CT, CVA, HTN, cardiac dysrhythmias and sudden cardiac deaths.The patient is also aware of the association between WILD and morning headaches, daytime somnolence, fatigue and obesity, whichalso has been improved with continued use.The patient is compliant with treatment, wearing the equipment every night for greater than 4 hours.The patient is instructed to continue use of the CPAP forOSA treatment. Oct,eneralized anxiety disorder (ICD-10 - F41.1)Healthy diet, exercise and continue medication Oct,alpitations (ICD-10 - R00.2) Oct,utoimmune hypothyroidism (ICD-10 - E06.3) Oct,olitis (ICD-10 - K52.9)Diet instructions, discussed treatments. 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 In the past when we tried to address these and change the medication cost has been an issue for her. I did track down pricing through [employer] and with that program it appears we could get her armodafinil 250 mg for $30-$40 a month, which she thinks would be doable. Extensively discussed. I will have her go to 1/2 tablet Adderall and 1/2 tablet of armodafinil daily for a week andthen go to armodafinil alone. She will call if problems. Otherwise return in 4 to 6 weeks Aug,sychophysiologic insomnia (ICD-10 - F51.04)Replied Deo continues to be a significant issue and a contributor to her insomnia. I again encouraged her to limit her time in bed to 8 hours at the most, if she is having insomnia issues. Because she likes getting up at 8:30 AM, going to bed at 1130 is simply too early and this is a big part of why the Ambien does not work as she would hope. I encouraged her to limit her time in bed to 8 hours, and suggested staying out of the bed until 1230 (which is when she normally falls asleep anyway). Anticipate this will improve her sleep initiation time, reducing insomnia tendencies, and may improve overall depth of sleep Aug,bstructive sleep apnea (ICD-10 - G47.33)She is using and benefiting from treatment with objective control per download. Aug,Generalized anxiety disorder (ICD-10 - F41.1)She continues with care elsewhere for this. 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 The person may leak urine if he or she cannot get to the bathroom fast enough (urinary incontinence). A person with this condition may also wake up several times in the night to go to the bathroom. Overactive bladder is associated with poor nerve signals between your bladder and your brain. Your bladder may get the signal to empty before it is full. You may also have very sensitive muscles thatmake your bladder squeeze too soon. These symptoms might interfere with daily work or social activities. What are the causes? This condition may be associated with or caused by: Urinary tract infection. Infection of nearby tissues, such as the prostate. Prostate enlargement. Surgery on the uterus or urethra. Bladder stones, inflammation, or tumors. Drinking too much caffeine or alcohol. Certain medicines, especially medicines that get rid of extra fluid in the body (diuretics). Muscle or nerve weakness, especially from: ?A spinal cord injury. ?Stroke. ?Multiple sclerosis. ?Parkinson's disease. Diabetes. Constipation. What increases the risk? You may be at greater risk for overactive bladder if you: Are an older adult. Smoke. Are going through menopause. Have prostate problems. Have a neurological disease, such as stroke, dementia, Parkinson's disease, or multiple sclerosis (MS). Eat or drink things that irritate the bladder. These include alcohol, spicy food, and caffeine. Are overweight or obese. What are the signs or symptoms? Symptoms of this condition include: Sudden, strong urge to urinate. Leaking urine. Urinating 8 or more times a day. Waking up to urinate 2 or more times a night. How is this diagnosed? Your health care provider may suspect overactive bladder based on your symptoms. He or she will diagnose this condition by: A physical exam and medical history. Blood or urine tests. You might need bladder or urine tests to help determine what is causing your overactive bladder. You might also need to see a health care provider who specializes in urinary tract problems (urologist). How is this treated? Treatment for overactive bladder depends on the cause of your condition and whether it is mild or severe. You can also make lifestyle changes at home. Options include: Bladder training. This may include: ?Learning to control the urge to urinate by following a schedule that directs you to urinate at regular intervals (timed voiding). ?Doing Kegel exercises to strengthen your pelvic floor muscles, which support your bladder. Toning these muscles can help you control urination, even if your bladder muscles are overactive. Special devices. This may include: ?Biofeedback, which uses sensors to help you become aware of your body's signals. ?Electrical stimulation, which uses electrodes placed inside the body (implanted) or outside the body. These electrodes send gentle pulses of electricity to strengthen the nerves or muscles that control the bladder. ?Women may use a plastic device that fits into the vagina and supports the bladder (pessary). Medicines. ?Antibiotics to treat bladder infection. ?Antispasmodics to stop the bladder from releasing urine at the wrong time. ?Tricyclic antidepressants to relax bladder muscles. ?Injections of botulinum toxin type A directly into the bladder tissue to relax bladder muscles. Lifestyle changes. This may include: ?Weight loss. Talk to your health care provider about weight loss methods that would work best for you. ?Diet changes. This may include reducing how much alcohol and caffeine you consume, or drinking fluids at different times of the day. ?Not smoking. Do not use any products that contain nicotine or tobacco, such as cigarettes and e-cigarettes. If you need help quitting, ask your health care provider. Surgery. ?A device may be implanted to help manage the nerve signals that control urination. ?An electrode may be implanted to stimulate electrical signals in the bladder. ?A procedure may be done to change the shape of the bladder. This is done only in very severe cases. Follow these instructions at home: Lifestyle Make any diet or lifestyle changes that are recommended by your health care provider. These may include: ?Drinking less fluid or drinking fluids at different times of the day. ?Cutting down on caffeine or alcohol. ?Doing Kegel exercises. ?Losing weight if needed. ?Eating a healthy and balanced diet to prevent constipation. This may include: ?Eating foods that are high in fiber, such as fresh fruits and vegetables, whole grains, and beans. ?Limiting foods that are high in fat and processed sugars, such as fried and sweet foods. General instructions Take jkef-cbx-[id number] and prescription medicines only as told by your health care provider. If you were prescribed an antibiotic medicine, take it as told by your health care provider. Do notstop taking the antibiotic even if you start to feel better. Use any implants or pessary as told by your health care provider. If needed, wear pads to absorb urine leakage. Keep a journal or log to track how much and when you drink and when you feel the need to urinate. This will help your health care provider monitor your condition. Keep all follow-up visits as told by your health care provider. This is important. Contact a health care provider if: You have a fever. Your symptoms do not get better with treatment. Your pain and discomfort get worse. You have more frequent urges to urinate. Get help right away if: You are not able to control your bladder. Summary Overactive bladder refers to a condition in which a person has a sudden need to pass urine. Several conditions may lead to an overactive bladder. Treatment for overactive bladder depends on the cause and severity of your condition. Follow your health care provider's instructions about lifestyle changes, doing Kegel exercises, keeping a journal, and taking medicines. This information is not intended to replace advice given to you by your health care provider. Make sure you discuss any questions you have with your health care provider. Document Released: 07/12/2010 Document Revised: 01/06/2020 Document Reviewed: 10/01/2018 [employer] Patient Education 2020 [employer]. Follow Up Care 06/29/2021 11:29:23 With:GEOVANNI PATRICIO, Brooke Renae, URL Address: [facility] [address] , [place] [address]- [phone] When:05/13/2023 Comments:[facility] 07-18-2022 Evaluation note* Encounter Date Diagnosis Assessment Notes Treatment Notes Treatment Clinical Notes Mar, GERD (gastroesophageal reflux di sease) (ICD-10 - K21.9) [facility] Other 07-12-2022 Evaluation note* Encounter Date Diagnosis Assessment Notes Treatment Notes Treatment Clinical Notes Mar, Gastritis (ICD-10 - K29.70) PAIN HAS EASED A LITTLE REVIEWED LABS WITH PATIENT. PATIENT TO WEAN OFF BACLOFEN SAMPLES OF IB JHONATAN GIVEN TO PATIENT WILL START ABOVE MEDICATION. 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 She has enoughmedication for now, and will call if she needs refill Feb,sychophysiologic insomnia (ICD-10 - F51.04)She does have increased time in bed, with an awakening time for the day at 830 and with attempted sleep onset at midnight. This does contribute to her insomnia. She also has increased stress and anxiety, complicated by her concern about medication interactions that led her to cut back on her Lexapro dosing. I encouraged her to set her bedtime based on her awakening time, and to not be in bed awake. I do think she probably be okay taking her Ambien at bedtime while also taking baclofen, though if she was concerned she could shift the baclofen to suppertime for example.I am hopeful that with these changes her sleep quality will improve significantly. She will keep follow-up and will call if any changes or problems Feb,bstructive sleep apnea (ICD-10 - G47.33)She is using and benefiting from treatment with objective control per download. Feb,Generalized anxiety disorder (ICD-10 - F41.1)She continues with care elsewhere for this. Good control of her underlying anxiety would have positive effects on her insomnia [facility] Other 06-02-2022 Evaluation note* Encounter Date Diagnosis Assessment Notes Treatment Notes Treatment Clinical Notes Feb, Gastritis (ICD-10 - K29.70) Will start Amitriptyline medication at this time stop the Citalopram at this time. Feb,Esophageal spasm (ICD-10 - K22.4) Feb,GERD (gastroesophageal reflux disease) (ICD-10 - K21.9) Feb,Nonspecific colitis (ICD-10 - K52.9) [facility] Other 05-19-2022 Evaluation note* Encounter Date Diagnosis Assessment Notes Treatment Notes Treatment Clinical Notes January, Irritable bowel syndrome with di arrhea (ICD-10 - K58.0) [facility] Other 05-11-2022 Evaluation note* Encounter Date Diagnosis Assessment Notes Treatment Notes Treatment Clinical Notes January, Narcolepsy without cataplexy ( D-10 - G47.419) [facility] [facility] Other 04-12-2022 Evaluation note* Encounter Date Diagnosis Assessment Notes Treatment Notes Treatment Clinical Notes Dec, Irritable bowel syndrome with di arrhea (ICD-10 - K58.0) Dec,GERD (gastroesophageal reflux disease) (ICD-10 - K21.9) Dec,History of gastritis (ICD-10 - Z87.19) Dec,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) [facility] Other 03-03-2022 Evaluation note* Encounter Date Diagnosis Assessment Notes Treatment Notes Treatment Clinical Notes Nov, GERD (gastroesophageal reflux di sease) (ICD-10 - K21.9) [facility] Other 02-08-2022 Evaluation note* Encounter Date Diagnosis Assessment Notes Treatment Notes Treatment Clinical Notes Oct, GERD (gastroesophageal reflux di sease) (ICD-10 - K21.9) RTO 8-10 WEEKS Oct,Irritable bowel syndrome with diarrhea (ICD-10 - K58.0) Oct,drenal adenoma (ICD-10 - D35.00) [facility] Other 01-04-2022 Evaluation note* Encounter Date Diagnosis Assessment Notes Treatment Notes Treatment Clinical Notes Sep, 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 She does need to increase TST, extensive discussion of this and insomnia interventions. Does note improvements with naps, and regular preventative naps can be part of narcolepsy treatment program. Extensive discussion Sep,bstructive sleep apnea (ICD-10 - G47.33) she is using and benefiting from CPAP . Download reviewed with patient. Sep,Generalized anxiety disorder (ICD-10 - F41.1) Reports she has had medical issues that have affected her anxiety this year. She can have palpitations at times Sep,sychophysiologic insomnia (ICD-10 - F51.04) She is on chronic low-dose Ambien, does not have side effects, and has good sleep quality. Has poorsleep initiation without it, can lay in bed for an hour or two. She uses med 5 nights per week. Extensive discussion of sleep hygeine and insomnia behavioral management Sep,alpitations (ICD-10 - R00.2) No current complaints noted [employer] Other Evaluation + Plan note Future Appointments Appointment Date:05/02/2023 09:30:00 AM Scheduled Provider:Brooke GALARZA MD Location:[facility] Appointment Type:URO Office Visit [facility] evaluation + Plan note Future Appointments Appointment Date:06/21/2024 10:30:00 AM Scheduled Provider:Brooke GALARZA MD Location:[facility] Appointment Type:URO Office Visit [facility] evaluation + Plan note Future Appointments Appointment Date:12/02/2023 12:00:00 PM Scheduled Provider: Location:[facility] Appointment Type:Urology CALL PAT FT Appointment Date:12/09/2023 11:00:00 AM Scheduled Provider: Location:[facility] Appointment Type:Urology FT Appointment Date:06/21/2024 10:30:00 AM Scheduled Provider:Brooke GALARZA MD Location:[facility] Appointment Type:URO Office Visit [facility] evaluation + Plan note Future Appointments Appointment Date:03/09/2024 01:00:00 PM Scheduled Provider:NERIS GEIGER PA-C Location:[facility] Appointment Type:URO Office Visit Appointment Date:06/21/2024 10:30:00 AM Scheduled Provider:Brooke GALARZA MD Location:[facility] App[facility]ments Appointment Date:03/14/2025 10:15:00 AM Scheduled Provider:Brooke GALARZA MD Location:[facility] Appointment Type:URO Office Visit [facility] evaluation + Plan note Future Appointments Appointment Date:06/27/2025 11:45:00 AM Scheduled Provider:Brooke GALARZA MD Location:[facility] Appointment Type:URO Office Visit [facility] evaluation + Plan note Future Appointments Appointment Date:06/30/2026 10:45:00 AM Scheduled Provider:Brooke GALARZA MD Location:[facility] Appointment Type:URO Office Visit [facility] evaluation noteNo InformationNort [employer] Other Evaluation noteNo assessment information available [facility] Work Phone: Evaluation note* Diagnosis Tinea pedis of left foot- Primary Syringoma of eyelid Lentigines Seborrheic keratosis, inflamed Angioma of skin Seborrheic keratosis Melanocytic nevus of trunk Benign neoplasm of skin of trunk, except scrotum EIC (epidermal inclusion cyst) Sebaceous cyst Neoplasm of unspecified behavior of bone, soft tissue, and skin documented in this encounter [facility] Diagnosis Atrophic vaginitis- Primary Postmenopausal atrophic vaginitis Atypical glandular cells of undetermined significance (DEZ) on cervical Pap smear Breast cancer screening by mammogram Hormone replacement therapy Urinary urgency Urgency of urination documented in this encounter [facility] Narrative - Reported* Type Description Date Medical History CTS Medical HistoryHypothyroidismMedical HistorynarcolepsyMedical Historyinsomnia Medical HistoryEsophageal refluxMedical HistoryanxietyMedical History hypercholesterolemiaMedical HistorySLEEP APNEAMedical HistorygastritisMedical HistoryesophagaelitisMedical HistorycolitsSurgical Historyback surgerySurgical HistorycholecystectomySurgical Historyurinary strictureSurgical Historywisdom teethSurgical HistorycolonoscopyHospitalization Historysee aboveHospitalization History[facility] [employer] Other History general Narrative - Reported* Type Description Date Medical History CTS Medical HistoryHypothyroidismMedical HistorynarcolepsyMedical Historyinsomnia Medical HistoryEsophageal refluxMedical HistoryanxietyMedical History hypercholesterolemiaMedical HistorySLEEP APNEAMedical HistorygastritisMedical HistoryesophagaelitisMedical HistorycolitsSurgical Historyback surgerySurgical HistorycholecystectomySurgical Historyurinary strictureSurgical Historywisdom teethSurgical [id number] HistoryColonoscopy, EGD02/12/22 Hospitalization Historysee aboveHospitalization HistoryVquence Other Hospital course Narrative No data available for this section [facility] Hospital Discharge instructions No data available for this section [facility] Hospital Discharge instructions Additional Instructions DISCHARGE INSTRUCTIONS FOR DILATION & CURETTAGE (D & C) -Today, outpatient surgery has become a vital link in the health care program. Outpatient D&C is a safe and common practice and this paper is designed to help you know what to expect when you go home and under what circumstances you should give me a call. I will have all of your labs and surgery reports for you when you come in for your follow-up. -To reach me in an emergency, call the office at [[phone]]. TODAY -Take it easy the rest of the day. If you have received a general anesthetic or injections to help you relax for the local procedure you should not drive a car for at least 8 hours after surgery to make sure all of the medication has worn off. ACTIVITIES -There are no restrictions on your normal activities. Generally, you may expect to go back to work the next day unless I have given you other instructions. You should shower daily and practice good personal habits to offset the chance of infection. Avoid intercourse for one week after your surgery and you should not douche. Most women experience minimal disruption of their normal routines. BLEEDING -The amount of bleeding after a D&C varies somewhat. Some women have very little requiring onlya light pad for a few days. Other women may bleed similar to a heavy period for a week or so. [You may wear Tampax if you wish, but be sure to change often.] Do not be alarmed if you expel some clots. -If I have given you a prescription to control bleeding, get it filled on your way home, if possible, and take all the pills according to the directions on the bottle. These pills may increase the amount of your flow and give you cramping similar to first day menstrual cramps. Two Motrin every 6 hours or Anaprox every 12 hours and a heating pad should be sufficient to control any discomfort you may have. If your bleeding becomes bright red and becomes heavy enough that you have used one full pad an hour times 4 hours, I want you to give me a call. Also, if within the first week after surgery you experience chills, fever, and a change in the odor, color, or character of your drainage, you may be developing an infection and you should call me. You may expect your next period anywhere from 2 to 6 weeks after your D&C. CONTROL -Do not assume that you cannot get soon after a D&C. Practice your usual method of control beginning with the first time you have intercourse after you have surgery. If you are taking control pills, please continue them unless told otherwise. DIET -Any diet is permissible FOLLOW UP -Please call the office at [phone] to arrange an appointment to see me in 2 weeks [ ][facility] Work Phone: Progress note No data available for this section [facility] Reason for Referral Reason *FU 11/14 Please s chedule consult to evaluate and treat with Dr. Galarza. Pt is established with him. Diagnosis 1 Adrenal adenoma (D35 .00) Referral Organization [facility] Referring Provider First Name Omari Referring Provider Last Name Andria Referring Provider Specialty Gastroenter ology Referred Organization [facility] Referred Provider Brooke Galarza Referred Address [address] [facility] [address],[place], [place],[address] Referred Provider Specialty Urology Referral Priority Routine General Notes Alessia Robertson 022 01:40:04 PM >RECEIVED AND SENT TO DR GALARZA Chief Complaint and Reason for Visit Chief Complaint wild, narco 6 month Chief Complaint wild, narco 6 month wild-narco Chief Complaint wild-narco Chief Complaint DEZ wild-narco Chief Complaint Atypical Gland Cells Chief Complaint Admit Date Cough/Digestive Problems/Itching-HIGH RI SK October 13, 2024 9:33am WILD/ NARCO/ 6 MONTHS October 21, 2024 11:09am Back pain/nausea/vomiting January 03 9:57am Reason for Visit Admit Date Enteritis October 13, 2024 9 :33am Epigastric abdominal pain October 13, 2024 9:33am ABIGAIL (generalized anxiety disorder) Janua ry 2024 9:33am GERD (gastroesophageal reflux disease) J anuary 2024 9:33am Hypertension October 13, 2024 9 :33am Hypothyroid October 13, 2024 9 :33am IBS (irritable bowel syndrome) September 292024 9:33am Pruritus October 13, 2024 9 :33am Narcolepsy without cataplexy September 11:09am WILD (obstructive sleep apnea) October 212024 11:09am Anxiety October 21, 2024 1 1:09am Insomnia October 21, 2024 1 1:09am Family History No Family History Records Found Relationship Condition Age at Onset Recorded Date/T trinity father Heart disease Unknown Not SpecifiedDiabetes mellitusUnknownHeart diseaseUnknownbrotherNon-Hodgkin's lymphomaUnknown Relationship Condition Age at Onset Recorded Date/T trinity father Heart disease Unknown Not SpecifiedDiabetes mellitusUnknownHeart diseaseUnknownbrotherNon-Hodgkin's lymphomaUnknownbrotherDeceasedUnknownMalignant neoplasmUnknownfatherDeceased UnknownNot SpecifiedDeceasedUnknown Relationship Condition Age at Onset Recorded Date/T trinity father Heart disease Unknown motherDiabetes mellitusUnknownHeart diseaseUnknownbrotherNon-Hodgkin's lymphoma UnknownbrotherDeceasedUnknownMalignant neoplasmUnknownfatherDeceasedUnknown motherDeceasedUnknown Advance Directives No Advanced Directives Records Found Advance Directive Response Recorded Date/ Time Advance Directives No May 4:13pm Advance Directive Response Recorded Date/ Time Advance Directives No May 5:13pm Summary Purpose Additional Source Comments REASON FOR VISIT (unrecogniz ed section and content) ReasonCommentsGynecologic ExamMedicare off year/ repeat pap.LMP: 2000HRT: Estrace cream - satisfied- managed by Dr. Galarza for UTIs.Last pap 12-24-23 DEZ.Last mammogram 08-20-24 [facility]. Denies breast or bowel concerns. Bladder ProblemC/o frequency and urgency. Leaks if she does not make it to the bathroom. Wakes up every night around 5-6AM. Denies stress incontinence.Reason CommentsSkin CheckUA- Burning, Urgency, Frequencymamm resultsLab resultsWELLNESSshingles discussionWants Appt.Pain Medicationshingles, stomach bloatingstill not feeling wellTBHShingles?Back PainSINUS INFECTIONmedsUpdat eBowel Movements/BloodRX ConcernsPT HERE FOR FOLLOW IBD SGI LAB-PER DLHPT HERE FOLLOW UP COLONOSCOPY, EGD AND LABSrx refillPATIENT HERE FOR 8 WEEK FOLLOW UPPT HERE WITH CONTINUED COMPLAINTS OF GERD/ IRRITABLE BOWEL WITH DIARRHEA Care Team (unrecognized sect ion and content) Team Status: Inactive Member Role Status Tacho Reyes , Primary Care Provider Active Omari Castrejon MDAttending ProviderActive Team Status: Active Member Role Status Dates Ruddy Reyes , Primary Care Provider Active Team Status: Inactive Member Role Status Dates Ruddy Reyes , Primary Care Provider Active Omari Castrejon MDAttalice ProviderActive Team Status: Inactive Member Role Status Dates Ruddy Reyes , Primary Care Provider Active Marco Castro , DOAttending ProviderActive Team Status: Inactive Member Role Status Dates Ruddy Reyes , Primary Care Provider Active Start: February 26, 2024 End: February 26, 2024Marco Castro , DOAttending ProviderActiveStart: February 26, 2024 End: February 26, 2024 Team Status: Inactive Member Role Status Dates Ruddy Reyes , Primary Care Provide r, Attending Provider Active Start: October 13, 2024 End: October 13, 2024 Team Status: Inactive Member Role Status Dates Ruddy Reyes DO Primary Care Provider Active Start: October 21, 2024 End: October 21ndra Cho YEAST DISTILLER-CAttending ProviderActiveStart: October 21, 2024 End: October 21, 2024 Team Status: Inactive Member Role Status Dates Ruddy Reyes DO Primary Care Provide r, Attending Provider Active Start: January 03, 2025 End: January 03, 2025Team MemberRelationshipSpecialtyStart DateEnd Date Ruddy Reyes DO PCP - GeneralInternal Medicine03/12/23Team MemberRelationshipSpecialtyStart Date End Date Ruddy Reyes DO PCP - GeneralInternal Medicine03/12/23Team MemberRelationshipSpecialtyStart Date End Date Ruddy Reyes DO [address] [place] [address] PCP - GeneralInternal Medicine03/12/23 Goals (unrecognized section and content) Goals may be documented in a n alternate section INFORMATION SOURCE (unrecogn ized section and content) DATE CREATED AUTHOR 03/07/2023 [facility] DATE CREATED AUTHOR 'S SHIRAZ ATION 03/08/2024 [facility] DATE CREATED AUTHOR AUTHOR'S SHIRAZ ATION 03/19/2025 [facility] DATE CREATED AUTHOR AUTHOR'S SHIRAZ ATION 07/02/2025 [facility] FOR RECORDS PERTAINING TO PATIENTS WHO ARE OR HAVE BEEN ENROLLED IN A CHEMICAL DEPENDENCY/SUBSTANCEABUSE PROGRAM, SOME INFORMATION MAY BE OMITTED. This clinical summary was aggregated from multiple sources. Caution should be exercised in using it in the provision of clinical care. This summary normalizes information from multiple sources, and as a consequence, information in this document may materially change the coding, format and clinical context of patient data. In addition, data may be omitted in some cases. CLINICAL DECISIONS SHOULD BE BASED ON THE PRIMARY CLINICAL RECORDS. [facility] [employer] provides no warranty or guarantee of the accuracy or completeness of information in this document.
== END 2025-08-23 15:53 | disposition home or self-care (01) ==
LOC: MAMMO 15:52
PROVIDERS: PCP Internal Medicine; Visit Provider Obstetrics & Gynecology
DX: Z12.31 Encounter for screening mammogram for malignant neoplasm of breast (principal); Z80.3 Family history of malignant neoplasm of breast; Z80.7 Family history of other malignant neoplasms of lymphoid, hematopoietic and related tissues; Z80.42 Family history of malignant neoplasm of prostate
CPT/HCPCS: 77063; 77067